=== PATIENT | female | born 1970 | race Hispanic/Latino ===

== ENCOUNTER 2024-09-13 04:30 | Inpatient (IN) | payer SELFPAY ==
[2024-09-13] VITALS (8 sets, daily range): BP systolic 105–132; BP diastolic 56–66; PULSE 86–95; RESP 19–28; TEMP 97.8–101.2; O2SAT 95–99
[~2024-09-13] VITALS: Ht 160 cm; Wt 76.7 kg
[2024-09-13] MEDS: acetaMINOPHEN 325 MG TAB PO ONE (05:02)
[2024-09-13] MEDS: Solu-medROL 125MG VIAL IVP ONE (05:02)
[2024-09-13] MEDS: 0.9%NACL 1000ML 1,323 ML IV ONE (05:03)
[2024-09-13 05:11] LABS: BASOPHILS # (AUTO) 0.07 K/uL (0.00-0.20); BASOPHILS % (AUTO) 0.6 % (0.0-5.0); EOSINOPHILS # (AUTO) 0.07 K/uL (0.00-0.70); EOSINOPHILS % (AUTO) 0.6 % (0.0-8.0); HEMATOCRIT 34.7 % (36-48); IMMATURE GRANULOCYTE ABSOLUTE 0.05 K/uL (0-1); LYMPHOCYTES # (AUTO) 0.9 K/uL (1.0-4.8); LYMPHOCYTES % (AUTO) 7.7 % (21.0-51.0); MEAN CORPUSCULAR HEMOGLOBIN 31.6 pg (27.0-33.0); MEAN CORPUSCULAR HGB CONC 32.9 g/dL (32.0-36.0); MEAN CORPUSCULAR VOLUME 96.1 fL (79-99); MONOCYTES % (AUTO) 8.7 % (3.0-13.0); NEUTROPHILS # (AUTO) 9.1 K/uL (1.8-7.7); PLATELET COUNT (AUTO) 211 K/uL (130-400); RED BLOOD CELL COUNT(AUTO) 3.61 MIL/uL (4.00-5.50); WHITE BLOOD COUNT (AUTO) 11.2 K/uL (4.8-10.8)
[2024-09-13 05:20] LABS: RAPID GROUP A STREP negative (NEGATIVE)
[2024-09-13 05:22] LABS: CREATININE 0.8 mg/dL (0.5-1.0)
[2024-09-13 05:27] LABS: APPEARANCE,URINE CLOUDY (CLEAR); BILIRUBIN,URINE 0.5 mg/dL (NEGATIVE); COLOR,URINE DARK-YELLOW (YELLOW); GLUCOSE, URINE (UA) 50 mg/dL (NEGATIVE); KETONES,URINE 5 mg/dL (NEGATIVE); LEUKOCYTE ESTERASE ,URINE NEGATIVE Leu/uL (NEGATIVE); NITRATE,URINE NEGATIVE (NEGATIVE); OCCULT BLOOD,URINE SMALL (NEGATIVE); PROTEIN,URINE 200 mg/dL (NEGATIVE); UROBILINOGEN,URINE 12 mg/dL (0.2-1.0)
[2024-09-13 05:27] LABS: SARS-CoV-2, RNA, NAAT NEGATIVE SARS CoV-2 (NEGATIVE)
[2024-09-13 05:28] LABS: ADD UA MICROSCOPIC YES
[2024-09-13 05:29] LABS: BACTERIA,URINE FEW /HPF (None Seen); MUCUS,URINE MANY LPF (None Seen); SQUAMOUS EPITHELIAL CELL,UR FEW /HPF (0-2)
[2024-09-13 05:30] LABS: INFLUENZA TYPE A Negative For Type A (NEGATIVE); INFLUENZA TYPE B Negative For Type B (NEGATIVE)
[2024-09-13 05:40] LABS: B-TYPE NATRIURETIC PEPTIDE 220 pg/mL (0-100)
[2024-09-13 05:41] LABS: POTASSIUM 2.9 mmol/L (3.5-5.1)
--- NOTE | 2024-09-13 06:01 | EKG ---
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
--- NOTE | 2024-09-13 06:53 | ERN ---
General Chief Complaint: Shortness of Breath Stated Complaint: SOB Time Seen by MD: 04:33 History of Present Illness Initial Comments Mrs Diez is a 54-year-old female history of tobacco abuse who comes in today with the acute respiratory failure. Patient was found lethargic in an alleyway and reports that she has been feeling poorly. Patient was initial presentation did have depressed sats in the low 70s. Patient was placed on non-rebreather. Allergies: Coded Allergies: No Known Drug Allergies (Unverified Allergy, Unknown, 09/13/24) Past Medical History Past Medical History: Unknown Past Surgical History: Unknown ROS Dictation Constitutional: Negative for fever,chills, and weight loss Eyes: Negative for injury, pain,redness, and discharge ENT: Negative for injury,pain or swelling Cardiovascular: Negative for chest pain, palpitations, and edema Respiratory: Positive for shortness of breath Abdomen/GI: Negative for abdominal pain, nausea, vomiting, diarrhea, and constipation Back: Negative for injury and pain : Negative for injury, bleeding and discharge MS/Extremity: Negative for injury and deformity Skin: Negative for rash, and discoloration Neuro: Positive for weakness Psych: Negative for suicide ideation, homicidal ideation, and hallucinations Physical Exam Physical Exam Dictation General: Lethargic disheveled female who appears in mild distress Head/Face: Normocephalic, atraumatic Eyes: PERRL, ENT: oral cavity clear, Neck: Trachea midline, supple, no nuchal rigidity Cardiovascular: Sinus tachycardia Respiratory: Diminished breath sounds bilaterally Abdomen: Soft, non-tender, non-distended, normal bowel sounds, no guarding or rebound. Skin: Warm, dry, normal turgor, no rash MS/Extremity: Pulses equal, no cyanosis Neuro: Lethargic Results Laboratory and Microbiology Lab and Micro Result Laboratory Tests Test 09/13/24 04:44 09/13/24 04:50 09/13/24 04:55 Influenza Type A Antigen Negative For Type A Influenza Type B Antigen Negative For Type B SARS-CoV-2, RNA, NAAT NEGATIVE SARS CoV-2 Group A Streptococcus Rapid negative (NEGATIVE) White Blood Count 11.2 K/uL (4.8-10.8) H Red Blood Count 3.61 MIL/uL (4.00-5.50) L Hemoglobin 11.4 g/dL (12.0-16.0) L Hematocrit 34.7 % (36-48) L Mean Corpuscular Volume 96.1 fL (79-99) Mean Corpuscular Hemoglobin 31.6 pg (27.0-33.0) Mean Corpuscular Hemoglobin Concent 32.9 g/dL (32.0-36.0) Red Cell Distribution Width 12.0 % (11.0-15.5) Platelet Count 211 K/uL (130-400) Mean Platelet Volume 12.7 fL (7.5-10.5) H Immature Granulocyte % (Auto) 0.4 % (0-1) Neutrophils (%) (Auto) 82.0 % (40.0-77.0) H Lymphocytes (%) (Auto) 7.7 % (21.0-51.0) L Monocytes (%) (Auto) 8.7 % (3.0-13.0) Eosinophils (%) (Auto) 0.6 % (0.0-8.0) Basophils (%) (Auto) 0.6 % (0.0-5.0) Neutrophils # (Auto) 9.1 K/uL (1.8-7.7) H Lymphocytes # (Auto) 0.9 K/uL (1.0-4.8) L Monocytes # (Auto) 1.0 K/uL (0.1-1.0) Eosinophils # (Auto) 0.07 K/uL (0.00-0.70) Basophils # (Auto) 0.07 K/uL (0.00-0.20) Absolute Immature Granulocyte (auto 0.05 K/uL (0-1) Nucleated Red Blood Cells 0.0 % (0.0-0.19) White Cell Morphology Comment See comments Sodium Level 140 mmol/L (136-145) Potassium Level 2.9 mmol/L (3.5-5.1) *L Chloride Level 101 mmol/L (101-111) Carbon Dioxide Level 34 mmol/L (21-32) H Blood Urea Nitrogen 20 mg/dL (7-18) H Creatinine 0.8 mg/dL (0.5-1.0) Glomerular Filtration Rate Calc 89 mL/min (>90) Random Glucose 228 mg/dL (70-105) H Total Calcium 8.8 mg/dL (8.5-10.1) B-Type Natriuretic Peptide 220 pg/mL (0-100) H Urine Color DARK-YELLOW (YELLOW) Urine Appearance CLOUDY (CLEAR) H Urine pH 6.0 (5.0-8.0) Urine Specific Randolph 1.031 (1.001-1.031) Urine Protein 200 mg/dL (NEGATIVE) H Urine Glucose (UA) 50 mg/dL (NEGATIVE) H Urine Ketones 5 mg/dL (NEGATIVE) H Urine Occult Blood SMALL (NEGATIVE) H Urine Nitrate NEGATIVE (NEGATIVE) Urine Bilirubin 0.5 mg/dL (NEGATIVE) H Urine Urobilinogen 12 mg/dL (0.2-1.0) H Urine Leukocyte Esterase NEGATIVE Hallie/uL Urine RBC 6-10 /HPF (0-1) H Urine WBC 6-10 /HPF (0-1) H Urine Squamous Epithelial Cells FEW /HPF (0-2) Urine Bacteria FEW /HPF (None Seen) MDM Patient appears to be a COPD exacerbation MDM: Differential diagnosis: Acute respiratory failure Rationale: Tests considered and ordered secondary to shared decision making include: labs, ECG and radiology Previous outside records reviewed: Old ER visits. Risk of complication and/or morbidity or mortality of patient management: None Medications-Per medication reconciliation Need for hospitalization: Patient does meet criteria for hospitalization. Need for emergency major/minor surgery: No There are no social concerns with this patient. Prescription drug management Prescriptions will include symptomatic care Patient's prior external medical records from other ER visits were reviewed by me as indicated. Prior testing and results from previous visits were reviewed. Prior tests were taken into account with medical decision making and resource utilization, independent historian/historians were used to obtain complete medical history. I independently interpreted the test that were performed, results were reviewed by me and considered findings on radiology if ordered. Medical management and examination interpretation discussions were had by me with other qualified healthcare professionals as indicated for the patient's care. ED Course Orders Procedure Category Date Status Time Cbc With Differential LAB 09/13/24 Complete 04:42 B-Type Natriuretic LAB 09/13/24 Complete Peptide 04:42 Chest 1vw RAD 09/13/24 Taken 04:42 Urinalysis Profile LAB 09/13/24 Complete 04:42 Troponin Poc Order LAB 09/13/24 Complete Only 04:42 Basic Metabolic Panel LAB 09/13/24 Complete 04:42 Methylprednisolone PHA 09/13/24 Complete Succ 125mg (Solu-Medr 05:00 Acetaminophen 325 Tab PHA 09/13/24 Complete (Tylenol 325mg Tab 05:00 0.9%Nacl 1000ml (Ns PHA 09/13/24 In Process 1000ml) 05:00 Rapid (Group A Strep) LAB 09/13/24 Complete 05:04 Influenza Type A & B, LAB 09/13/24 Complete Rapid 05:04 Covid Rna Naat LAB 09/13/24 Complete 05:04 Culture Urine LION 09/13/24 In Process 05:32 12 Lead Ekg Tracing- EKG 09/13/24 Complete Technical 04:42 Current Medications Medications (Trade) Dose Ordered Sig/Korey Route PRN Reason Start Time Stop Time Status Last Admin Dose Admin Acetaminophen (TYLenol 325MG TAB) 650 mg ONCE ONCE PO 09/13/24 05:00 09/13/24 05:01 DC 09/13/24 05:02 Methylprednisolone Sodium Succinate (Solu-medROL 125MG) 125 mg ONCE ONCE IVP 09/13/24 05:00 09/13/24 05:01 DC 09/13/24 05:02 Sodium Chloride 1,323 ml @ 441 mls/hr ONCE ONCE IV 09/13/24 05:00 09/13/24 07:59 09/13/24 05:03 Vital Signs Date Time Temp Pulse Resp B/P (MAP) Pulse Ox O2 Delivery O2 Flow Rate FiO2 09/13/24 06:24 88 26 111/64 99 Non-Rebreather+ 15 100 09/13/24 05:02 101.1 09/13/24 04:35 101.1 115 34 146/71 78 Room Air 0 09/13/24 04:35 101.1 107 34 132/73 72 Room Air* 0 21 DX & DISP Disposition: Inpatient Departure Impression: Primary Impression: Acute respiratory failure Condition: Stable Referrals: SELF,REFERRAL (PCP) NOREEN RODAS MD Sep 13, 2024 06:53
[2024-09-13] MEDS: IpraTROPium/alBUTERol SULFATE 3 ML SOLUTION IH ONE (07:01)
[2024-09-13] MEDS ORDERED: acetaMINOPHEN 325 MG TAB PO PRN ×2 (08:30)
[2024-09-13] MEDS ORDERED: ondanSETRON 4MG INJ IVP PRN (08:30)
--- NOTE | 2024-09-13 08:49 | HMCIMG ---
CHEST 1VW HISTORY: Shortness of breath COMPARISON: None FINDINGS: A frontal projection of the chest was obtained. No acute pulmonary infiltrates is seen. The heart is borderline enlarged. Degenerative changes are seen. Prominent interstitial markings are seen. IMPRESSION: 1. No acute pulmonary infiltrate is seen.
[2024-09-13 08:54] LABS: ABG BASE EXCESS 2.7 mmol/L (-2.0-3.0); ABG OXYGEN SATURATION 89.9 % (94.0-98.0); ABG PCO2 53 mmHg (32-45); ABG PH 7.357 (7.350-7.450); CARBON MONOXIDE 1.8 % (0.5-1.5); DEVICE COMMENT RR JULIA; HHb 9.9; PO2, ARTERIAL BG 59.1 mmHg (83.0-108.0); VENT MODE, BG 3LNC (ROOM AIR)
[2024-09-13] MEDS ORDERED: Solu-medROL 125MG VIAL IVP SCH (09:00)
[2024-09-13] MEDS ORDERED: levoFLOXacin 250 MG/D5W 50ML 50 ML IVPB SCH (09:00)
[2024-09-13] MEDS ORDERED: PoTASSium chloRIDE 20MEQ/100ML 100 ML IV PRN (09:00)
[2024-09-13] MEDS ORDERED: MAGNESIUM 2GM PREMIX 50ML 50 ML IV PRN ×2 (09:00→09:30)
--- NOTE | 2024-09-13 09:00 | NUR ---
PULMONOLGY CONSULT DONE, HOWARD FURNACE TAPPER WILL PUT IN ORDERS
--- NOTE | 2024-09-13 09:08 | CONS ---
[facility] CONSULTATION NOTE Date Patient Seen: Sep 13, 2024 Time of Visit: 09:08 Supervising Physician: Dajuan Escoto MD Reason for Consultation: SOB Primary Care Physician: self referral Outpatient Specialists:none Inpatient Consults: Brandon Tse MD Attending : Dr Homar Kumar MD PROBLEM LIST: Acute toxic metabolic encephalopathy, POA Acute hypoxemic respiratory failure, POA COPD exacerbation, POA Leukocytosis, POA Normocytic anemia, POA Compensated respiratory acidosis, POA Hyperglycemia, POA Electrolyte derangement with (hypokalemia, hypocalcemia), POA Drug abuse +for cocaine, POA Current smoker, current ETOH use Overweight HPI: This is a 64-year-old female with a history of "Bronchitis", COPD, who presented to emergency department via EMS after being found in an alley lethargic and with shortness of breath. She was admitted under catalyst team for acute hypoxic respiratory failure and we are consulted for shortness of breath by primary team. On behalf of [facility] thank you for given us the opportunity to participate in the care of this patient. On arrival to the emergency department patient had a fever of 101.1 heart rate 107 respiratory rate of 34 with a blood pressure of 132/73 with a oximetry of 78% at room air. Laboratory showed white count of 11.2 H&H 11.4/34.7 and a platelet count that was normal neutrophils were 82. Chemistries showed potassium of 3.2 carbon dioxide of 34 glucose 195 mg/dL iron of 31 TIBC 239% saturation 12.9 ammonia level 17 procalcitonin 0.23. On UDS patient is positive for cocaine. Urinalysis showed: cloudy appearance urine protein 200, glucose 50 ketones five occult blood small bilirubin 0.5 urobilinogen 12 RBCs 6-10 WBCs 6-10. HIV antibody nonreactive. Influenza type a and B negative. SARS COVID-19 negative. And rapid strep negative. Chest x-ray with no acute pulmonary infiltrates. PAST MEDICAL HX: "chronic bornchitis" COPD PAST SURGICAL HX: noncontributory SOCIAL HISTORY: Smokes half pack of cigarettes per day Uses alcohol occasionally Drug use Positive for cocaine Homeless Coded Allergies: No Known Drug Allergies (Unverified Allergy, Unknown, 09/13/24) REVIEW OF SYSTEMS: 12 point ROS reviewed with patient. Pertinent positives mentioned above. Otherwise negative. PHYSICAL EXAM: GENERAL:GCS 13, lethargic HEENT: EOMI, Sclera non icteric, moist mucosa NECK: Supple, no JVD, trachea midline LUNGS: Clear breath sounds bilaterally. No wheezes HEART: Regular rate and rhythm. Normal S1 and S2, without murmurs ABD: Abdomen soft, nontender. Bowel sounds present EXT: No clubbing cyanosis or edema NEURO: lethargic, no focal weakness Vital Signs (last 8hr) Date Time Temp Pulse Resp B/P (MAP) Pulse Ox O2 Delivery O2 Flow Rate FiO2 09/13/24 08:25 86 20 95/53 96 Room Air* 0 21 09/13/24 07:04 88 24 09/13/24 06:24 88 26 111/64 99 Non-Rebreather+ 15 100 09/13/24 05:02 101.1 09/13/24 04:35 101.1 115 34 146/71 78 Room Air 0 09/13/24 04:35 101.1 107 34 132/73 72 Room Air* 0 21 LABS: Hematology Labs: Test 09/13/24 04:50 Range/Units White Blood Count 11.2 H 4.8-10.8 K/uL Red Blood Count 3.61 L 4.00-5.50 MIL/uL Hemoglobin 11.4 L 12.0-16.0 g/dL Hematocrit 34.7 L 36-48 % Mean Corpuscular Volume 96.1 79-99 fL Mean Corpuscular Hemoglobin 31.6 27.0-33.0 pg Mean Corpuscular Hemoglobin Concent 32.9 32.0-36.0 g/dL Red Cell Distribution Width 12.0 11.0-15.5 % Platelet Count 211 130-400 K/uL Mean Platelet Volume 12.7 H 7.5-10.5 fL Immature Granulocyte % (Auto) 0.4 0-1 % Neutrophils (%) (Auto) 82.0 H 40.0-77.0 % Lymphocytes (%) (Auto) 7.7 L 21.0-51.0 % Monocytes (%) (Auto) 8.7 3.0-13.0 % Eosinophils (%) (Auto) 0.6 0.0-8.0 % Basophils (%) (Auto) 0.6 0.0-5.0 % Neutrophils # (Auto) 9.1 H 1.8-7.7 K/uL Lymphocytes # (Auto) 0.9 L 1.0-4.8 K/uL Monocytes # (Auto) 1.0 0.1-1.0 K/uL Eosinophils # (Auto) 0.07 0.00-0.70 K/uL Basophils # (Auto) 0.07 0.00-0.20 K/uL Absolute Immature Granulocyte (auto 0.05 0-1 K/uL Nucleated Red Blood Cells 0.0 0.0-0.19 % White Cell Morphology Comment See comments Chemistry Labs: Test 09/13/24 04:50 Range/Units Sodium Level 140 136-145 mmol/L Potassium Level 2.9 *L 3.5-5.1 mmol/L Chloride Level 101 101-111 mmol/L Carbon Dioxide Level 34 H 21-32 mmol/L Blood Urea Nitrogen 20 H 7-18 mg/dL Creatinine 0.8 0.5-1.0 mg/dL Glomerular Filtration Rate Calc 89 >90 mL/min Random Glucose 228 H 70-105 mg/dL Total Calcium 8.8 8.5-10.1 mg/dL B-Type Natriuretic Peptide 220 H 0-100 pg/mL DIAGNOSTICS / RADIOLOGY RESULTS: IMAGING REPORT Signed PATIENT: ESTEBAN MELGAR MR#: [id number] : 1970 SEX: F AGE: 54 LOCATION: [facility] ORDER 2 STATUS: REG REPORT#: [id number] SERVICE 1 REASON: SOB ORDERING PHYSICIAN: NOREEN RODAS MD PROCEDURE: CXR1VW - CHEST 1VW CHEST 1VW HISTORY: Shortness of breath COMPARISON: None FINDINGS: A frontal projection of the chest was obtained. No acute pulmonary infiltrates is seen. The heart is borderline enlarged. Degenerative changes are seen. Prominent interstitial markings are seen. IMPRESSION: 1. No acute pulmonary infiltrate is seen. DICTATED BY: JAIME DOTSON MD DATE: 09/13/24845 ELECTRONICALLY SIGNED BY: JAIME DOTSON MD DATE: 09/13/24848 PLAN NEURO: Minimize central acting medications as possible. Fall Precautions. Well lighted room through the day and minimize interruptions through the night to prevent acute delirium. [facility] protocol PULMONARY: Supplemental 02 as needed Titrate Fio2 to keep Spo2 > or = 90% DuoNebs and CPT as needed IS hourly while awake for pulmonary hygiene Out of bed to chair as tolerated VAP Bundle Bipap 10/5 at 40% prn and HS CARDIOVASCULAR: Follow hemodynamics. Titrate vasopressor to keep MAP >65 or systolic blood pressure >95mmHg tele monitoring DRIPS: [ ] LINES: PIV GI & NUTRITION: Continue nutritional support Aspirations precautions Prokinetic agents and laxatives as needed aspiration precautions KIDNEYS & ELECTROLYTES: Strict monitoring of intake and output Daily weights Avoid nephrotoxic agents Monitor electrolytes and replace as needed Goal urine output of 30mL/hr or 0.5mL/kg/hr Urine output: [ ] Fluid Balance: [ ] ENDOCRINE: Maintain blood glucose between 100-180 at all times. Insulin sliding scale for blood glucose management INFECTIOUS DISEASE: Trend temperature. Holt-culture if febrile. Micro: resp culture urine culture blood culture negative for covid, flu a and b negative for strep Antibiotics: [ ] Rocephin Doxy HEMATOLOGY & COAGULATION: Monitor H&H. Keep Hgb > 7 Transfuse 1 unit of PRBC for Hgb < 7 Transfuse 1 pack of platelets of platelets < 20, 000 Watch for any signs and symptoms of bleeding monitor HH SKIN: Pressure ulcer prevention per facility protocol Rehab: PT/OT Prophylaxis: GI: Protonix DVT: lovenox Code Status: Full Resuscitation Disposition: ICU Other: Total patient care time exceeds 35 minutes excluding all procedures. Case was discussed and seen with my supervising physician. The above plan was formulated and agreed upon. HOWARD ABRAHAM Sep 13, 2024 09:08
[2024-09-13 09:19] LABS: % IRON SATURATION 12.9 % (22-44)
--- NOTE | 2024-09-13 09:19 | NUR ---
DR SAINZ NOTIFIED OF ABG RESULTS, NEW ORDERS RECIEVED PLACE PT ON BIPAP AND KEEP PT PCCU
[2024-09-13 09:23] LABS: HEMOGLOBIN A1C 5.6 % (4.0-6.0)
[2024-09-13] MEDS ORDERED: PoTASSium chloRIDE 10MEQ/100ML 100 ML IV PRN (09:30)
[2024-09-13 09:40] LABS: BILIRUBIN,DIRECT 0.9 mg/dL (0.0-0.3); BILIRUBIN,TOTAL 1.7 mg/dL (0.2-1.0); MAGNESIUM 2.1 mg/dL (1.80-2.40); THYROID STIMULATING HORMONE 0.39 uIU/mL (0.36-3.74); TOTAL PROTEIN, SERUM 7.4 g/dL (6.0-8.3)
--- NOTE | 2024-09-13 09:45 | HP ---
[facility] HISTORY AND PHYSICAL Date of Service: Sep 13, 2024 Time of Service: 09:14 PCP: MICHAEL HISTORY OF PRESENT ILLNESS: [This is a 54-year-old female with history of Chronic obstructive pulmonary disease who presented to the emergency department via EMS as patient was found in an alleyway where she was found lethargic and unable to breath. According to the ER report, her O2 saturation was in the 70s on room air. Patient was placed on non-rebreather mask and was brought to the emergency department for further evaluation. In the ED, her initial vitals showed temperature of 101.1, pulse 107-115, respiratory rate 34, BP 132/73, pulse oximetry 72% on room air at that time. She was placed on non-rebreather mask for which she improve oxygenation to 99%. Laboratory data reviewed, WBC 11.2, HGB 11.4, HCT 34.7, K 2.9, CL 101, Co2 34, BUN 20, creatinine 0.8, BNP 220. Chest x-ray done showed no acute pulmonary infiltrates seen. Patient was evaluated in ED [address] Graf. Patient was drowsy but able to answer questions, patient was congested. In the ED, she received nebulizer treatment with albuterol x1 Tylenol 650 mg x1 and [id number] mg IV. She was referred to the hospitalist for further evaluation and management. REVIEW OF SYSTEMS CONSTITUTIONAL: Denies fevers, chills, or night sweats. No unintentional weight loss reported. NEUROLOGICAL: Denies headache, amaurosis fugax, motor weakness, sensory deficit, vertigo/spinning sensation, gait abnormalities, or tremors. ENT: No hearing loss, otalgia, otorrhea, rhinitis, rhinorrhea, hoarseness, or s ore throat. CARDIOVASCULAR: Denies any exertional angina, dyspnea on exertion, orthopnea, paroxysmal nocturnal dyspnea, palpitations, life-threatening arrhythmias, claudication. PULMONARY: Denies any shortness of breath, cough, phlegm/sputum, hemoptysis, pleuritic chest pain. SLEEP: Denies morning headaches, daytime somnolence or napping. Denies difficulty falling asleep, staying asleep, waking from sleep. Denies knowledge of snoring. GASTROINTESTINAL: Denies any type of dysphagia to either liquids or solids. Denies nausea, vomiting, pyrosis, early satiety, abdominal pain, diarrhea, constipation, or changes in stool consistency or caliber. Denies coffee-ground emesis, hematemesis, hematochezia, or melanotic stools. GENITOURINARY: Denies frequency, urgency, nocturia, hematuria or incontinence (Storage/Irritative symptoms.) Low urinary stream, straining to void, urinary intermittency or hesitancy, splitting of the voiding stream, terminal dribbling. ENDOCRINOLOGIC: Denies polyuria, polydipsia, polyphagia or heat/cold intolerances. HEMATOLOGIC: Denies thrombophilia/previous clots, or coagulopathy/bleeding disorders. ONCOLOGIC: Denies personal history of malignancy. DERMATOLOGIC: Denies rashes or pruritus. PSYCHIATRIC: Denies any suicidal or homicidal ideation. Denies hallucinations. PAST MEDICAL HISTORY: [Chronic obstructive pulmonary disease ] PAST SURGICAL HISTORY: [Denies any past surgical history ] PAST SOCIAL HISTORY: [Patient smokes half a pack of cigarettes per day denies, alcohol or illicit drug use ] FAMILY HISTORY: [ Noncontributory ] Coded Allergies: No Known Drug Allergies (Unverified Allergy, Unknown, 09/13/24) PHYSICAL EXAM GENERAL APPEARANCE: Patient is drowsy, generalized weakness NEUROLOGICAL: Cranial nerves II-XII grossly intact. Motor is 5/5 in bilateral upper and lower extremities proximal to distal. No sensory deficits. HEENT: Face is symmetric. Pupils are equal and reactive. Extraocular movements are intact. NECK: Supple. No JVD. No thyromegaly. No submental, submandibular, pre- /postauricular, occipital or supraclavicular lymphadenopathy. CHEST: Normal chest expansion. No Telemetry. LUNGS: Noted rales, rhonchi, wheezing, and congestion CARDIOVASCULAR: Regular. S1 and S2 normal. No appreciable rubs, murmurs or gallops. ABDOMEN: Soft, nontender, and nondistended. There is no rebound, voluntary guarding, or rigidity. : Deferred. No [place]. EXTREMITIES: Non-edematous and not cyanotic. No clubbing. Good capillary refill. SKIN: No skin breakdown. Vital Sign (Last 24 Hours) 09/13/24 09/13/24 05:02 08:25 Temp 101.1 Pulse 86 Resp 20 B/P (MAP) 95/53 Pulse Ox 96 O2 Delivery Room Air* O2 Flow Rate 0 FiO2 21 LABS: Laboratory: Test 09/13/24 08:53 09/13/24 04:55 09/13/24 04:50 09/13/24 04:44 Range/Units Blood Gas Specimen Type Arterial Arterial Blood pH 7.357 7.350-7.450 Arterial Blood Partial Pressure CO2 53 H 32-45 mmHg Arterial Blood Partial Pressure O2 59.1 L 83.0-108.0 mmHg Arterial Blood HCO3 29.0 H 21.0-28.0 mmol/L Arterial Blood Oxygen Saturation 89.9 L 94.0-98.0 % Arterial Blood Base Excess 2.7 -2.0-3.0 mmol/L Hemoglobin (Blood Gas) 11.6 L 12.0-16.0 g/dL Sodium (Blood Gas) 139 136-145 MMOL/L Bedside Potassium (Blood Gas) 3.2 L 3.4-4.5 MMOL/L Bedside Chloride (Blood Gas) 100 98-107 MMOL/L Bedside Glucose (Blood Gas) 192 H 65-95 MG/DL Bedside Ionized Calcium (Blood Gas) 1.12 L 1.15-1.33 MMOL/L Bedside Lactic Acid (Blood Gas) 1.11 H 0.36-0.75 MMOL/L Blood Gas Temperature 37.0 35.5-37.0 CELSIUS Blood Gas Flow-by 3.00 0.00-15.00 L/min Blood Gas Vent Mode 3LNC ROOM AIR FiO2 32.0 % Blood Gas Specimen Comment RR JUAN Urine Color DARK-YELLOW YELLOW Urine Appearance CLOUDY H CLEAR Urine pH 6.0 5.0-8.0 Urine Specific [place] 1.031 1.001-1.031 Urine Protein 200 H NEGATIVE mg/dL Urine Glucose (UA) 50 H NEGATIVE mg/dL Urine Ketones 5 H NEGATIVE mg/dL Urine Occult Blood SMALL H NEGATIVE Urine Nitrate NEGATIVE NEGATIVE Urine Bilirubin 0.5 H NEGATIVE mg/dL Urine Urobilinogen 12 H 0.2-1.0 mg/dL Urine Leukocyte Esterase NEGATIVE NEGATIVE Hallie/uL Urine RBC 6-10 H 0-1 /HPF Urine WBC 6-10 H 0-1 /HPF Urine Squamous Epithelial Cells FEW 0-2 /HPF Urine Bacteria FEW None Seen /HPF White Blood Count 11.2 H 4.8-10.8 K/uL Red Blood Count 3.61 L 4.00-5.50 MIL/uL Hemoglobin 11.4 L 12.0-16.0 g/dL Hematocrit 34.7 L 36-48 % Mean Corpuscular Volume 96.1 79-99 fL Mean Corpuscular Hemoglobin 31.6 27.0-33.0 pg Mean Corpuscular Hemoglobin Concent 32.9 32.0-36.0 g/dL Red Cell Distribution Width 12.0 11.0-15.5 % Platelet Count 211 130-400 K/uL Mean Platelet Volume 12.7 H 7.5-10.5 fL Immature Granulocyte % (Auto) 0.4 0-1 % Neutrophils (%) (Auto) 82.0 H 40.0-77.0 % Lymphocytes (%) (Auto) 7.7 L 21.0-51.0 % Monocytes (%) (Auto) 8.7 3.0-13.0 % Eosinophils (%) (Auto) 0.6 0.0-8.0 % Basophils (%) (Auto) 0.6 0.0-5.0 % Neutrophils # (Auto) 9.1 H 1.8-7.7 K/uL Lymphocytes # (Auto) 0.9 L 1.0-4.8 K/uL Monocytes # (Auto) 1.0 0.1-1.0 K/uL Eosinophils # (Auto) 0.07 0.00-0.70 K/uL Basophils # (Auto) 0.07 0.00-0.20 K/uL Absolute Immature Granulocyte (auto 0.05 0-1 K/uL Nucleated Red Blood Cells 0.0 0.0-0.19 % White Cell Morphology Comment See comments Sodium Level 140 136-145 mmol/L Potassium Level 2.9 *L 3.5-5.1 mmol/L Chloride Level 101 101-111 mmol/L Carbon Dioxide Level 34 H 21-32 mmol/L Blood Urea Nitrogen 20 H 7-18 mg/dL Creatinine 0.8 0.5-1.0 mg/dL Glomerular Filtration Rate Calc 89 >90 mL/min Random Glucose 228 H 70-105 mg/dL Total Calcium 8.8 8.5-10.1 mg/dL B-Type Natriuretic Peptide 220 H 0-100 pg/mL Influenza Type A Antigen Negative For Type A NEGATIVE Influenza Type B Antigen Negative For Type B NEGATIVE SARS-CoV-2, RNA, NAAT NEGATIVE SARS CoV-2 NEGATIVE Group A Streptococcus Rapid negative NEGATIVE Current Medications Medications (Trade) Dose Ordered Sig/[place] Route PRN Reason Start Time Stop Time Status Last Admin Dose Admin Acetaminophen (TYLenol 325MG TAB) 650 mg Q4H PRN PO TEMPERATURE GREATER THAN 101.5 09/13/24 08:30 10/13/24 08:29 Acetaminophen (TYLenol 325MG TAB) 650 mg Q6H PRN PO MILD PAIN (1-3) 09/13/24 08:30 10/13/24 08:29 Albuterol (DUOneb) 1 UDVIAL [id number] IH 09/13/24 12:00 10/13/24 11:59 Ceftriaxone Sodium (ROCEphine 1G INJ) 1 gm Q24H IVPB 09/13/24 09:00 09/23/24 08:59 Doxycycline Hyclate 250 ml @ 125 mls/hr Q12H IV 09/13/24 09:00 09/23/24 08:59 Enoxaparin Sodium (Lovenox) 30 mg DAILY SQ 09/13/24 09:00 10/13/24 08:59 Ipratropium [place] (AtrovENT UD) 0.5 MG [id number] IH 09/13/24 12:00 10/13/24 11:59 Levofloxacin/ Dextrose 50 ml @ 100 mls/hr DAILY IVPB 09/13/24 09:00 09/23/24 08:59 Levofloxacin/ Dextrose 100 ml @ 100 mls/hr Q24H IV 09/13/24 07:00 09/23/24 06:59 09/13/24 07:41 100 MLS/HR Magnesium Sulfate 50 ml @ 0 mls/hr PROTOCOL PRN IV hypomagnesemia 09/13/24 09:00 10/13/24 08:59 Magnesium Sulfate 50 ml @ 0 mls/hr PROTOCOL PRN IV LOW MAGNESIUM 09/13/24 09:30 10/13/24 09:29 UNV Methylprednisolone Sodium Succinate (Solu-medROL 125MG) 125 mg Q6H IVP 09/13/24 09:00 10/13/24 08:59 Ondansetron HCl (zoFRAN 4MG INJ) 4 mg Q6H PRN IVP NAUSEA/VOMITING 09/13/24 08:30 10/13/24 08:29 Potassium Chloride 100 ml @ 100 mls/hr AD PRN IV POTASSIUM PROTOCOL 09/13/24 09:00 10/13/24 08:59 Potassium Chloride 100 ml @ 100 mls/hr AD PRN IV POTASSIUM PROTOCOL 09/13/24 09:30 10/13/24 09:29 UNV Potassium Chloride (K-Dur/Klor-Con 20meq) 20 meq AD PRN PO POTASSIUM PROTOCOL 09/13/24 09:00 10/13/24 08:59 Potassium Chloride (KCl 10% Elixir 20meq/15ml) 20 meq AD PRN PO POTASSIUM PROTOCOL 09/13/24 09:00 10/13/24 08:59 Sodium Chloride 1,000 ml @ 50 mls/hr Q20H IV 09/13/24 09:00 10/13/24 08:59 DIAGNOSTICS / RADIOLOGY: [[place] [address] [address] IMAGING REPORT Signed PATIENT: ESTEBAN MELGAR MR#: [id number] : 1970 SEX: F AGE: 54 LOCATION: [facility] ORDER 2 STATUS: REG REPORT#: [id number] SERVICE 1 REASON: SOB ORDERING PHYSICIAN: NOREEN RODAS MD PROCEDURE: CXR1VW - CHEST 1VW CHEST 1VW HISTORY: Shortness of breath COMPARISON: None FINDINGS: A frontal projection of the chest was obtained. No acute pulmonary infiltrates is seen. The heart is borderline enlarged. Degenerative changes are seen. Prominent interstitial markings are seen. IMPRESSION: 1. No acute pulmonary infiltrate is seen. DICTATED BY: JAIME DOTSON MD DATE: 09/13/24845 ELECTRONICALLY SIGNED BY: JAIME DOTSON MD DATE: 09/13/24848 ] ASSESSMENT: [Acute respiratory failure, POA Chronic obstructive pulmonary disease exacerbation, POA Acute bronchitis, POA Sepsis, POA due to above Severe hypokalemia, POA Elevated BNP, POA Hyperglycemia, POA Urinary tract infection, POA ] PLAN: [Patient will be admitted in PCCU Continue with oxygen supplementation on BiPAP support We will consult paediatrician, Dr. Campos for further recommendations Patient will continue with IV antibiotics ceftriaxone and doxycycline Patient will continue with IV steroid with [id number] mg q.6 hours Patient will continue with IV fluids with NS 50 mL/hour We will order 2D echo We will order drug screen, lipid panel, T4 and T3, TSH, iron panel We will follow up with urine culture and blood culture We will order HIV 1-2 w/reflex GI and DVT ppx We will order labs in am Full code Patient was seen and examined with Dr. Graf in the emergency department, above plan was formulated ] ATTESTATION BY PHYSICIAN I have seen and examined the patient. I reviewed the documentation, medical decision making, and treatment plan as noted by the mid-level provider above. I agree with the findings and plan of care. FARA GRAF MD, [facility] Sep 13, 2024 09:45
[2024-09-13 10:11] LABS: HIV 1&2 ANTIBODY Non-Reactive (Negative); HIV-1 p24 Antigen Non-Reactive (Negative)
[2024-09-13 10:27] LABS: ALCOHOL, BLOOD < 3 mg/dL (0-10); AMMONIA 17 umol/L (11-32); CARBON DIOXIDE 34 mmol/L (21-32); CHLORIDE 102 mmol/L (101-111); CREATININE 0.8 mg/dL (0.5-1.0); GLOMERULAR FILTR. RATE CALC 89 mL/min (>90); GLUCOSE,RANDOM 195 mg/dL (70-105); POTASSIUM 3.2 mmol/L (3.5-5.1); SODIUM SERUM 141 mmol/L (136-145); UREA NITROGEN, BLOOD 17 mg/dL (7-18)
[2024-09-13] MEDS: cefTRIAXone 1G VIAL IVPB SCH (10:30)
[2024-09-13] MEDS: 0.9%NACL 1000ML 1,000 ML IV SCH (10:30)
[2024-09-13] MEDS: DOXYCYCLINE 100MG+NS 250ML 250 ML IV SCH (10:30)
[2024-09-13] MEDS: PoTASSium chl 10% ELIXIR 20MEQ 20 MEQ/15 ML UDCUP PO PRN (10:31)
[2024-09-13] MEDS: ENOXAPARIN SODIUM 30 MG/0.3 ML SQ SCH (10:32)
[2024-09-13] MEDS: IpraTROPium/alBUTERol SULFATE 3 ML SOLUTION IH SCH (11:11)
[2024-09-13] MEDS: IpraTROPium 0.5 MG/2.5 ML INH IH SCH (11:11)
[2024-09-13] MEDS: SODIUM CHLORIDE 3% FOR INHALATION 4 ML/AMP VIAL.NEB IH ONE (11:11)
[2024-09-13 13:07] LABS: INR 1.01 (0.85-1.15); PROTHROMBIN TIME 11.3 SEC (9.6-11.6)
[2024-09-13 14:18] LABS: AMPHET/METH SCREEN,URINE NEGATIVE (NEGATIVE); BARBITURATE SCREEN, URINE NEGATIVE (NEGATIVE); BENZODIAZEPINES SCREEN,URINE NEGATIVE (NEGATIVE); CANNABINOID SCREEN,URINE NEGATIVE (NEGATIVE); COCAINE SCREEN,URINE POSITIVE (NEGATIVE); OPIATE SCREEN,URINE NEGATIVE (NEGATIVE); PHENCYCLIDINE SCREEN,URINE NEGATIVE (NEGATIVE)
[2024-09-13] MEDS ORDERED: PHARMACY COMMUNICATION MISC PRN (20:30)
[2024-09-13] MEDS ORDERED: chlordiazePOXIDE HCL 25 MG CAP PO PRN ×2 (20:30)
[2024-09-13] MEDS ORDERED: PROMETHAZINE HCL 25 MG TABLET PO PRN (20:30)
[2024-09-13] MEDS ORDERED: LORazepam 2 MG/ML 1 ML VIAL IVP PRN ×2 (20:30)
--- NOTE | 2024-09-13 21:32 | HMCIMG ---
CT NONCONTRAST CHEST Comparison Study: none History: cough Technique: Helical CT of the chest without IV contrast at 5 mm collimation. Coronal and sagittal reformations also done. CT Dose Index (CTDI): 2.38 mGy Dose Length Product (DLP): 94.8 total mGy-cm Findings: The airway is intact. The trachea and major bronchi are unremarkable. Scattered diffuse bilateral infiltrates are seen consistent with bilateral pneumonia. No pulmonary infiltrates or mass lesions are seen. No pleural effusions are identified. There is no pneumothorax. There is no evidence of pneumomediastinum. The nonenhanced exam of the sharri and mediastinum is unremarkable. No evidence of hilar enlargement is seen. The aorta shows no aneurysmal dilatation or significant atheromatous calcification. No significant brachiocephalic vascular abnormalities are seen. The heart is unremarkable. It is not enlarged. No significant coronary arterial calcifications are seen. There is no pericardial effusion. The rib cage appears unremarkable. The soft tissues of the chest wall are unremarkable. The dorsal spine shows no significant abnormalities. IMPRESSION: Scattered diffuse bilateral infiltrates are seen consistent with bilateral pneumonia. This study was performed using dose reduction techniques to include automated exposure control and/or adjustment of the mA and/or kV according to patient size.
[2024-09-13] MEDS: Solu-medROL 40MG VIAL IVP SCH (21:59)
[2024-09-13] MEDS: THIAMINE HCL 100 MG, FOLic ACID 5 MG/ML VIAL 1 MG, M.V.I. IV [ADULT] 10 ML in 0.9%NACL ... IV ONE (22:48)
[2024-09-14] VITALS (15 sets, daily range): BP systolic 109–146; BP diastolic 49–85; PULSE 60–102; RESP 16–22; TEMP 97.8–98.8; O2SAT 93–97
--- NOTE | 2024-09-14 00:46 | NUR ---
REPORT GIVEN TO SALINAS YU AT THIS TIME.
--- NOTE | 2024-09-14 02:41 | PN ---
INFECTIOUS DISEASE FOLLOWUP NOTE DATE OF SERVICE: 09/13/2024 SUBJECTIVE: The patient is seen and examined at bedside today. The patient has no fever, no chills. Still has some cough. No hemoptysis or pleuritic pain. , no diarrhea, no abdominal pain. No bleeding tendency. PHYSICAL EXAMINATION: VITAL SIGNS: Temperature 99.5. EYES: No icterus. Pupils equal and reactive. HENT: No oral thrush seen. Moist oral mucosa. NECK: Supple, no JVD or thyromegaly. LUNGS: Good air entry. No rales, no rhonchi. CARDIOVASCULAR: S1, S2 regular. No murmur heard. ABDOMEN: Full, soft, nontender. Bowel sounds present. CENTRAL NERVOUS SYSTEM: Awake, alert, oriented x 3. No focal deficits. SKIN: No rashes, no itchiness. LYMPHATIC: No peripheral lymphadenopathy. BACK: No deformity, no pressure ulcer. MUSCULOSKELETAL: No joint swelling, erythema or tenderness. ASSESSMENT: A 54-year-old female presenting with cough and fever. Current problem include: * Sepsis. * Urinary tract infection. * Pneumonia. PLAN: * Obtain CT chest without contrast. * Continue ceftriaxone. * Continue doxycycline. * Follow up culture. * Continue current management. TID: [id number] RECEIPT: [id number]
[2024-09-14 05:23] LABS: BASOPHILS # (AUTO) 0.07 K/uL (0.00-0.20); BASOPHILS % (AUTO) 0.7 % (0.0-5.0); HEMATOCRIT 33.4 % (36-48); LYMPHOCYTES # (AUTO) 0.9 K/uL (1.0-4.8); LYMPHOCYTES % (AUTO) 8.6 % (21.0-51.0); MEAN CORPUSCULAR HGB CONC 31.1 g/dL (32.0-36.0); MEAN CORPUSCULAR VOLUME 99.4 fL (79-99); MONOCYTES % (AUTO) 9.4 % (3.0-13.0); NEUTROPHILS # (AUTO) 8.5 K/uL (1.8-7.7); NEUTROPHILS % (AUTO) 80.4 % (40.0-77.0); PLATELET COUNT (AUTO) 215 K/uL (130-400); RED BLOOD CELL COUNT(AUTO) 3.36 MIL/uL (4.00-5.50); WHITE BLOOD COUNT (AUTO) 10.6 K/uL (4.8-10.8)
[2024-09-14 05:46] LABS: ALBUMIN 2.2 g/dL (3.5-5.0); BILIRUBIN,TOTAL 0.3 mg/dL (0.2-1.0); CREATININE 0.7 mg/dL (0.5-1.0); POTASSIUM 3.7 mmol/L (3.5-5.1); TOTAL PROTEIN, SERUM 6.4 g/dL (6.0-8.3)
--- NOTE | 2024-09-14 06:05 | NUR ---
PAGED HOSPITALIST K[facility] RUNNER TO REPORT CRITICAL LAB, PENDING CALL BACK FROM DR TEAGUE
[2024-09-14] MEDS: CEFTRIAXONE 2GM VIAL IVPB SCH (08:32)
[2024-09-14] MEDS: THIAMINE HCL 100 MG/ML 2ML VIAL IM SCH (08:41)
[2024-09-14] MEDS: FOLic ACID 1 MG TABLET PO SCH (08:42)
[2024-09-14] MEDS: MULTIVITAMIN TABLET PO SCH (08:42)
--- NOTE | 2024-09-14 09:30 | HMCIMG ---
CHEST 1VW HISTORY: Hypoxia COMPARISON: 09/13/2024 FINDINGS: A frontal projection of the chest was obtained. Mild bilateral pulmonary infiltrates are seen may be related to mild pulmonary vascular congestion with possible superimposed pneumonitis. The heart is normal in size. Degenerative changes are seen. No evidence of aortic calcification is seen. IMPRESSION: 1. Mild bilateral pulmonary infiltrates are seen may be related to mild pulmonary vascular congestion with possible superimposed pneumonitis.
--- NOTE | 2024-09-14 11:24 | NUR ---
INITIAL ASSESSMENT Patient states she has been staying on the streets in an alley but when discharge will go stay with her friend, Brannon Alaniz. She has no home services or DME. Patient states she is able to complete ADL's independently and is able to drive. PCP is MD at [facility]. Pharmacy is [facility]. Patient has encountered issues with having stable mcc to live in or transportation. She does not elaborate but states things because more difficult X 6 months ago when her spouse . She states she had been staying on the streets in an alley but will go stay with one of her friends whe she is discharged from hospital. Patient refuses to go to homeless mcc. DCP is home. Patient has no insurance or benefits. She was provided with community resources for post hospitalization follow up. Patient was also provided with Good RX card for prescriptions and educated on [facility] $4 medication program and [facility] $5 medication program. Patient is being assisted by [employer] for financial matters. Addendum: 09/14/24 at 1128 by ANGÉLICA WAN SS Amended: Links added.
--- NOTE | 2024-09-14 11:29 | NUR ---
EMERGENCY CONTACTS/ADDRESS FIONA MELGAR (DAUGHTER) [phone] NOREEN INGRID (FRIEND) [phone] CORRECT ADDRESS: [facility] [place] [address]
[2024-09-14] MEDS: guaiFENesin-DM 200/20MG 10ML PO PRN (13:27)
--- NOTE | 2024-09-14 13:31 | PN ---
[facility] PROGRESS NOTE Date of Service: Sep 14, 2024 Time of Service: 13:30 SUBJECTIVE: [ ] 09/14/24 patient was seen and examined. Case discussed with the RN. She was still short of breath and requiring about3 L of oxygen. CT chest was negative for PE and suggests pneumonia. We will continue broad-spectrum IV antibiotics REVIEW OF SYSTEMS CONSTITUTIONAL: Denies fevers, chills, or night sweats. No unintentional weight loss reported. NEUROLOGICAL: Denies headache, amaurosis fugax, motor weakness, sensory deficit, vertigo/spinning sensation, gait abnormalities, or tremors. ENT: No hearing loss, otalgia, otorrhea, rhinitis, rhinorrhea, hoarseness, or sore throat. CARDIOVASCULAR: Denies any exertional angina, dyspnea on exertion, orthopnea, paroxysmal nocturnal dyspnea, palpitations, life-threatening arrhythmias, claudication. PULMONARY: Denies any shortness of breath, cough, phlegm/sputum, hemoptysis, pleuritic chest pain. SLEEP: Denies morning headaches, daytime somnolence or napping. Denies difficulty falling asleep, staying asleep, waking from sleep. Denies knowledge of snoring. GASTROINTESTINAL: Denies any type of dysphagia to either liquids or solids. Denies nausea, vomiting, pyrosis, early satiety, abdominal pain, diarrhea, constipation, or changes in stool consistency or caliber. Denies coffee-ground emesis, hematemesis, hematochezia, or melanotic stools. GENITOURINARY: Denies frequency, urgency, nocturia, hematuria or incontinence (Storage/Irritative symptoms.) Low urinary stream, straining to void, urinary intermittency or hesitancy, splitting of the voiding stream, terminal dribbling. ENDOCRINOLOGIC: Denies polyuria, polydipsia, polyphagia or heat/cold intolerances. HEMATOLOGIC: Denies thrombophilia/previous clots, or coagulopathy/bleeding disorders. ONCOLOGIC: Denies personal history of malignancy. DERMATOLOGIC: Denies rashes or pruritus. PSYCHIATRIC: Denies any suicidal or homicidal ideation. Denies hallucinations. PHYSICAL EXAM GENERAL APPEARANCE: Patient is drowsy, generalized weakness NEUROLOGICAL: Cranial nerves II-XII grossly intact. Motor is 5/5 in bilateral upper and lower extremities proximal to distal. No sensory deficits. HEENT: Face is symmetric. Pupils are equal and reactive. Extraocular movements are intact. NECK: Supple. No JVD. No thyromegaly. No submental, submandibular, pre- /postauricular, occipital or supraclavicular lymphadenopathy. CHEST: Normal chest expansion. No Telemetry. LUNGS: Noted rales, rhonchi, wheezing, and congestion CARDIOVASCULAR: Regular. S1 and S2 normal. No appreciable rubs, murmurs or gallops. ABDOMEN: Soft, nontender, and nondistended. There is no rebound, voluntary guarding, or rigidity. : Deferred. No [place]. EXTREMITIES: Non-edematous and not cyanotic. No clubbing. Good capillary refill. SKIN: No skin breakdown. Vital Signs (last 8hr) Date Time Temp Pulse Resp B/P (MAP) Pulse Ox O2 Delivery O2 Flow Rate FiO2 09/14/24 12:00 98.6 60 16 140/59 94 Nasal Cannula 3.0 09/14/24 11:19 91 20 N/Cannula Low lpm 2.0 28 09/14/24 11:17 91 22 09/14/24 08:00 98.6 65 18 109/49 97 Nasal Cannula 2.0 09/14/24 06:58 83 20 N/Cannula Low lpm 3.0 32 09/14/24 06:56 83 20 LABS: Laboratory: Test 09/14/24 05:02 09/13/24 13:40 09/13/24 12:36 09/13/24 09:59 Range/Units White Blood Count 10.6 4.8-10.8 K/uL Red Blood Count 3.36 L 4.00-5.50 MIL/uL Hemoglobin 10.4 L 12.0-16.0 g/dL Hematocrit 33.4 L 36-48 % Mean Corpuscular Volume 99.4 H 79-99 fL Mean Corpuscular Hemoglobin 31.0 27.0-33.0 pg Mean Corpuscular Hemoglobin Concent 31.1 L 32.0-36.0 g/dL Red Cell Distribution Width 12.0 11.0-15.5 % Platelet Count 215 130-400 K/uL Mean Platelet Volume 13.2 H 7.5-10.5 fL Immature Granulocyte % (Auto) 0.9 0-1 % Neutrophils (%) (Auto) 80.4 H 40.0-77.0 % Lymphocytes (%) (Auto) 8.6 L 21.0-51.0 % Monocytes (%) (Auto) 9.4 3.0-13.0 % Eosinophils (%) (Auto) 0.0 0.0-8.0 % Basophils (%) (Auto) 0.7 0.0-5.0 % Neutrophils # (Auto) 8.5 H 1.8-7.7 K/uL Lymphocytes # (Auto) 0.9 L 1.0-4.8 K/uL Monocytes # (Auto) 1.0 0.1-1.0 K/uL Eosinophils # (Auto) 0.00 0.00-0.70 K/uL Basophils # (Auto) 0.07 0.00-0.20 K/uL Absolute Immature Granulocyte (auto 0.10 0-1 K/uL Nucleated Red Blood Cells 0.0 0.0-0.19 % D-Dimer Quantitative (PE/DVT) 685 *H 0-500 ng/mL Sodium Level 143 136-145 mmol/L Potassium Level 3.7 3.5-5.1 mmol/L Chloride Level 108 101-111 mmol/L Carbon Dioxide Level 33 H 21-32 mmol/L Blood Urea Nitrogen 24 H 7-18 mg/dL Creatinine 0.7 0.5-1.0 mg/dL Glomerular Filtration Rate Calc 104 >90 mL/min Random Glucose 204 H 70-105 mg/dL Total Calcium 8.6 8.5-10.1 mg/dL Magnesium Level 2.00 1.80-2.40 mg/dL Total Bilirubin 0.3 0.2-1.0 mg/dL Aspartate Amino Transf (AST/SGOT) 39 H 10-37 U/L Alanine Aminotransferase (ALT/SGPT) 35 12-78 U/L Alkaline Phosphatase 78 50-136 U/L Total Protein 6.4 6.0-8.3 g/dL Albumin 2.2 L 3.5-5.0 g/dL Urine Opiates Screen NEGATIVE NEGATIVE Urine Barbiturates Screen NEGATIVE NEGATIVE Urine Phencyclidine Screen NEGATIVE NEGATIVE Urine Amphetamines Screen NEGATIVE NEGATIVE Urine Benzodiazepines Screen NEGATIVE NEGATIVE Urine Cocaine Screen POSITIVE H NEGATIVE Urine Marijuana (THC) Screen NEGATIVE NEGATIVE Prothrombin Time 11.3 9.6-11.6 SEC Prothromb Time International Ratio 1.01 0.85-1.15 Lactic Acid Level 1.8 0.8-2.5 mmol/L Ammonia 17 11-32 umol/L Serum Alcohol < 3 0-10 mg/dL Test 09/13/24 08:53 09/13/24 04:55 09/13/24 04:50 09/13/24 04:44 Range/Units Blood Gas Specimen Type Arterial Arterial Blood pH 7.357 7.350-7.450 Arterial Blood Partial Pressure CO2 53 H 32-45 mmHg Arterial Blood Partial Pressure O2 59.1 L 83.0-108.0 mmHg Arterial Blood HCO3 29.0 H 21.0-28.0 mmol/L Arterial Blood Oxygen Saturation 89.9 L 94.0-98.0 % Arterial Blood Base Excess 2.7 -2.0-3.0 mmol/L Hemoglobin (Blood Gas) 11.6 L 12.0-16.0 g/dL Sodium (Blood Gas) 139 136-145 MMOL/L Bedside Potassium (Blood Gas) 3.2 L 3.4-4.5 MMOL/L Bedside Chloride (Blood Gas) 100 98-107 MMOL/L Bedside Glucose (Blood Gas) 192 H 65-95 MG/DL Bedside Ionized Calcium (Blood Gas) 1.12 L 1.15-1.33 MMOL/L Bedside Lactic Acid (Blood Gas) 1.11 H 0.36-0.75 MMOL/L Blood Gas Temperature 37.0 35.5-37.0 CELSIUS Blood Gas Flow-by 3.00 0.00-15.00 L/min Blood Gas Vent Mode 3LNC ROOM AIR FiO2 32.0 % Blood Gas Specimen Comment RR JUAN Urine Color DARK-YELLOW YELLOW Urine Appearance CLOUDY H CLEAR Urine pH 6.0 5.0-8.0 Urine Specific Post 1.031 1.001-1.031 Urine Protein 200 H NEGATIVE mg/dL Urine Glucose (UA) 50 H NEGATIVE mg/dL Urine Ketones 5 H NEGATIVE mg/dL Urine Occult Blood SMALL H NEGATIVE Urine Nitrate NEGATIVE NEGATIVE Urine Bilirubin 0.5 H NEGATIVE mg/dL Urine Urobilinogen 12 H 0.2-1.0 mg/dL Urine Leukocyte Esterase NEGATIVE NEGATIVE Hallie/uL Urine RBC 6-10 H 0-1 /HPF Urine WBC 6-10 H 0-1 /HPF Urine Squamous Epithelial Cells FEW 0-2 /HPF Urine Bacteria FEW None Seen /HPF White Cell Morphology Comment See comments Hemoglobin A1c 5.6 4.0-6.0 % Estimated Average Glucose (eAG) 114 70-126 mg/dL Iron Level 31 L 50-170 mcg/dL Total Iron Binding Capacity 239 L 250-450 mcg/dL Percent Iron Saturation 12.9 L 22-44 % Direct Bilirubin 0.9 H 0.0-0.3 mg/dL B-Type Natriuretic Peptide 220 H 0-100 pg/mL Triglycerides Level 45 30-200 mg/dL Cholesterol Level 117 <200 mg/dL LDL Cholesterol 52 0-99 mg/dL HDL Cholesterol 59 35-85 mg/dL Procalcitonin 0.23 0.05-0.5 ng/mL Thyroid Stimulating Hormone (TSH) 0.39 0.36-3.74 uIU/mL Free Thyroxine (T4) Direct 1.05 0.76-1.46 ng/dL Free Triiodothyronine (T3) pg/mL 1.19 L 2.18-3.98 pg/mL HIV (1&2) Antibody Non-Reactive Negative HIV P24 Antigen, Qualitative Non-Reactive Negative Influenza Type A Antigen Negative For Type A NEGATIVE Influenza Type B Antigen Negative For Type B NEGATIVE SARS-CoV-2, RNA, NAAT NEGATIVE SARS CoV-2 NEGATIVE Group A Streptococcus Rapid negative NEGATIVE Current Medications Medications (Trade) Dose Ordered Sig/[place] Route PRN Reason Start Time Stop Time Status Last Admin Dose Admin Acetaminophen (TYLenol 325MG TAB) 650 mg Q4H PRN PO TEMPERATURE GREATER THAN 101.5 09/13/24 08:30 10/13/24 08:29 Acetaminophen (TYLenol 325MG TAB) 650 mg Q6H PRN PO MILD PAIN (1-3) 09/13/24 08:30 10/13/24 08:29 Albuterol (DUOneb) 1 UDVIAL [id number] IH 09/13/24 12:00 10/13/24 11:59 09/14/24 11:17 1 UDVIAL Ceftriaxone Sodium (ROCEphine 1G INJ) 1 gm Q24H IVPB 09/13/24 09:00 09/13/24 20:15 DC 09/13/24 10:30 1 GM Ceftriaxone Sodium (Rocephin 2gm Inj) 2 gm Q24H IVPB 09/14/24 09:00 09/24/24 08:59 09/14/24 08:32 2 GM Chlordiazepoxide HCl (LIBrium 25 MG CAP) 25 mg Q2H PRN PO ALCOHOL WITHDRAWAL PROTOCOL 09/13/24 20:30 09/20/24 20:29 Chlordiazepoxide HCl (LIBrium 25 MG CAP) 50 mg Q1H PRN PO ALCOHOL WITHDRAWAL PROTOCOL 09/13/24 20:30 09/20/24 20:29 Doxycycline Hyclate 250 ml @ 125 mls/hr Q12H IV 09/13/24 09:00 09/23/24 08:59 09/14/24 09:54 125 MLS/HR Enoxaparin Sodium (Lovenox) 30 mg DAILY SQ 09/13/24 09:00 10/13/24 08:59 09/14/24 08:46 30 MG Folic Acid (FOLic ACID 1 MG TABLET) 1 mg DAILY PO 09/14/24 09:00 09/16/24 09:01 09/14/24 08:42 1 MG Guaifenesin/ Dextromethorphan (RobiTUSSin DM 200/20MG 10ML) 10 ml Q6H PRN PO COUGH 09/14/24 13:00 10/14/24 12:59 09/14/24 13:27 10 ML Ipratropium [place] (AtrovENT UD) 0.5 MG [id number] IH 09/13/24 12:00 09/14/24 02:48 DC Levofloxacin/ Dextrose 50 ml @ 100 mls/hr DAILY IVPB 09/13/24 09:00 09/13/24 09:51 DC Levofloxacin/ Dextrose 100 ml @ 100 mls/hr Q24H IV 09/13/24 07:00 09/13/24 12:50 DC 09/13/24 07:41 100 MLS/HR Lorazepam (AtiVAN) 2 mg Q4H PRN IVP ALCOHOL WITHDRAWAL PROTOCOL 09/13/24 20:30 09/20/24 20:29 Lorazepam (AtiVAN) 4 mg Q2H PRN IVP ALCOHOL WITHDRAWAL PROTOCOL 09/13/24 20:30 09/20/24 20:29 Magnesium Sulfate 50 ml @ 0 mls/hr PROTOCOL PRN IV hypomagnesemia 09/13/24 09:00 09/13/24 09:18 DC Magnesium Sulfate 50 ml @ 0 mls/hr PROTOCOL PRN IV LOW MAGNESIUM 09/13/24 09:30 10/13/24 09:29 Methylprednisolone Sodium Succinate (Solu-medROL 40MG) 40 mg BID IVP 09/13/24 21:00 10/13/24 20:59 09/14/24 08:42 40 MG Methylprednisolone Sodium Succinate (Solu-medROL 125MG) 125 mg Q6H IVP 09/13/24 09:00 09/13/24 09:17 DC Multivitamins Therapeutic (Multivitamin Tablet) 1 tab DAILY PO 09/14/24 09:00 10/14/24 08:59 09/14/24 08:42 1 TAB Ondansetron HCl (zoFRAN 4MG INJ) 4 mg Q6H PRN IVP NAUSEA/VOMITING 09/13/24 08:30 10/13/24 08:29 Pharmacy Profile Note (Pharmacy Communication) 1 each PROTOCOL PRN MISC ETOH Withdrawal Score changes 09/13/24 20:30 09/13/24 20:31 DC Potassium Chloride 100 ml @ 100 mls/hr AD PRN IV POTASSIUM PROTOCOL 09/13/24 09:00 09/13/24 09:19 DC Potassium Chloride 100 ml @ 100 mls/hr AD PRN IV POTASSIUM PROTOCOL 09/13/24 09:30 10/13/24 09:29 Potassium Chloride (K-Dur/Klor-Con 20meq) 20 meq AD PRN PO POTASSIUM PROTOCOL 09/13/24 09:00 10/13/24 08:59 Potassium Chloride (KCl 10% Elixir 20meq/15ml) 20 meq AD PRN PO POTASSIUM PROTOCOL 09/13/24 09:00 10/13/24 08:59 09/13/24 19:01 20 MEQ Promethazine HCl (Phenergan) 25 mg Q6H PRN PO NAUSEA 09/13/24 20:30 10/13/24 20:29 Sodium Chloride 1,000 ml @ 50 mls/hr Q20H IV 09/13/24 09:00 10/13/24 08:59 09/13/24 10:30 50 MLS/HR Thiamine HCl (Vitamin B-1) 100 mg DAILY IM 09/14/24 09:00 09/16/24 09:01 09/14/24 08:41 100 MG DIAGNOSTICS / RADIOLOGY: [ ] ASSESSMENT: [Acute respiratory failure, POA Chronic obstructive pulmonary disease exacerbation, POA Acute bronchitis, POA Sepsis, POA due to above Severe hypokalemia, POA Elevated BNP, POA Hyperglycemia, POA Urinary tract infection, POA ] PLAN: [Patient will be admitted in PCCU Continue with oxygen supplementation on BiPAP support We will consult yield improvement engineer, Dr. Campos for further recommendations Patient will continue with IV antibiotics ceftriaxone and doxycycline Patient will continue with IV steroid with [id number] mg q.6 hours Patient will continue with IV fluids with NS 50 mL/hour We will order 2D echo We will order drug screen, lipid panel, T4 and T3, TSH, iron panel We will follow up with urine culture and blood culture We will order HIV 1-2 w/reflex GI and DVT ppx We will order labs in am Full code LEEANNE TINEO MD Sep 14, 2024 13:31
--- NOTE | 2024-09-14 21:10 | PN ---
DATE OF SERVICE: 09/14/2024 INFECTIOUS DISEASE FOLLOWUP NOTE SUBJECTIVE: The patient is seen and examined at bedside today. The patient has no fever, no chills. No nausea, no vomiting. Still has some cough. No hemoptysis. CT chest shows bilateral pneumonia. She is tolerating antibiotic. PHYSICAL EXAMINATION: VITAL SIGNS: Temperature 97.5. EYES: No icterus. Pupils equal and reactive. HENT: No oral thrush seen. Moist oral mucosa. NECK: Supple. No JVD or thyromegaly. LUNGS: No crackles. No rhonchi. CARDIOVASCULAR SYSTEM: S1, S2 regular. No murmur heard. ABDOMEN: Full, soft. Bowel sounds are still present. CENTRAL NERVOUS SYSTEM: The patient is awake, alert. No focal deficits. SKIN: No rashes, no itchiness. LYMPHATIC: No peripheral lymphadenopathy. BACK: No deformity, no pressure ulcer. ASSESSMENT: A 54-year-old female with multiple current problems that include: * Sepsis. * Bilateral pneumonia. * Urinary tract infection. * COPD. PLAN: * Continue ceftriaxone. * Continue doxycycline. * Follow up culture. * Continue pain management. * Continue antiemetic. * Continue GI prophylaxis. TID: [id number] RECEIPT: [id number] [facility]
--- NOTE | 2024-09-14 21:36 | PN ---
[facility] PROGRESS NOTE Date Patient Seen: Sep 14, 2024 Time of Visit: 12:00 Supervising Physician: DANNY JACOB Primary Care Physician: self referral Outpatient Specialists:none Inpatient Consults: Brandon Tse MD Attending : Dr Homar Kumar MD PROBLEM LIST: Acute toxic metabolic encephalopathy, POA Acute hypoxemic respiratory failure, POA COPD exacerbation, POA Leukocytosis, POA Normocytic anemia, POA Compensated respiratory acidosis, POA Hyperglycemia, POA Electrolyte derangement with (hypokalemia, hypocalcemia), POA Drug abuse +for cocaine, POA Current smoker, current ETOH use Overweight patient seen and examined awake, alert, well oriented, she remains on 3L of oxygen via NC since admission unable to wean off complaining of significant cough and congestion for which she will be place on antitussive, will continue with antibiotic therapy follow up on sputum cultures. REVIEW OF SYSTEMS: 12 point ROS reviewed with patient. Pertinent positives mentioned above. Otherwise negative. PHYSICAL EXAM: GENERAL: awake, on room air HEENT: EOMI, Sclera non icteric, moist mucosa NECK: Supple, no JVD, trachea midline LUNGS: Clear breath sounds bilaterally. crackles, decreased breath sounds HEART: Regular rate and rhythm. Normal S1 and S2, without murmurs ABD: Abdomen soft, nontender. Bowel sounds present EXT: No clubbing cyanosis or edema NEURO: lethargic, no focal weakness Vital Signs (last 8hr) Date Time Temp Pulse Resp B/P (MAP) Pulse Ox O2 Delivery O2 Flow Rate FiO2 09/14/24 20:02 94 Nasal Cannula* 3 32 09/14/24 20:00 98.8 61 20 127/54 94 Nasal Cannula 3.0 09/14/24 18:32 99 20 N/Cannula Low lpm 2.0 28 09/14/24 18:32 99 22 09/14/24 16:00 98.6 96 18 133/85 94 Nasal Cannula 2.0 LABS: Hematology Labs: Test 09/14/24 05:02 09/13/24 04:50 Range/Units White Blood Count 10.6 4.8-10.8 K/uL Red Blood Count 3.36 L 4.00-5.50 MIL/uL Hemoglobin 10.4 L 12.0-16.0 g/dL Hematocrit 33.4 L 36-48 % Mean Corpuscular Volume 99.4 H 79-99 fL Mean Corpuscular Hemoglobin 31.0 27.0-33.0 pg Mean Corpuscular Hemoglobin Concent 31.1 L 32.0-36.0 g/dL Red Cell Distribution Width 12.0 11.0-15.5 % Platelet Count 215 130-400 K/uL Mean Platelet Volume 13.2 H 7.5-10.5 fL Immature Granulocyte % (Auto) 0.9 0-1 % Neutrophils (%) (Auto) 80.4 H 40.0-77.0 % Lymphocytes (%) (Auto) 8.6 L 21.0-51.0 % Monocytes (%) (Auto) 9.4 3.0-13.0 % Eosinophils (%) (Auto) 0.0 0.0-8.0 % Basophils (%) (Auto) 0.7 0.0-5.0 % Neutrophils # (Auto) 8.5 H 1.8-7.7 K/uL Lymphocytes # (Auto) 0.9 L 1.0-4.8 K/uL Monocytes # (Auto) 1.0 0.1-1.0 K/uL Eosinophils # (Auto) 0.00 0.00-0.70 K/uL Basophils # (Auto) 0.07 0.00-0.20 K/uL Absolute Immature Granulocyte (auto 0.10 0-1 K/uL Nucleated Red Blood Cells 0.0 0.0-0.19 % White Cell Morphology Comment See comments Chemistry Labs: Test 09/14/24 05:02 09/13/24 09:59 09/13/24 04:50 Range/Units Sodium Level 143 136-145 mmol/L Potassium Level 3.7 3.5-5.1 mmol/L Chloride Level 108 101-111 mmol/L Carbon Dioxide Level 33 H 21-32 mmol/L Blood Urea Nitrogen 24 H 7-18 mg/dL Creatinine 0.7 0.5-1.0 mg/dL Glomerular Filtration Rate Calc 104 >90 mL/min Random Glucose 204 H 70-105 mg/dL Total Calcium 8.6 8.5-10.1 mg/dL Magnesium Level 2.00 1.80-2.40 mg/dL Total Bilirubin 0.3 0.2-1.0 mg/dL Aspartate Amino Transf (AST/SGOT) 39 H 10-37 U/L Alanine Aminotransferase (ALT/SGPT) 35 12-78 U/L Alkaline Phosphatase 78 50-136 U/L Total Protein 6.4 6.0-8.3 g/dL Albumin 2.2 L 3.5-5.0 g/dL Lactic Acid Level 1.8 0.8-2.5 mmol/L Ammonia 17 11-32 umol/L Hemoglobin A1c 5.6 4.0-6.0 % Estimated Average Glucose (eAG) 114 70-126 mg/dL Iron Level 31 L 50-170 mcg/dL Total Iron Binding Capacity 239 L 250-450 mcg/dL Percent Iron Saturation 12.9 L 22-44 % Direct Bilirubin 0.9 H 0.0-0.3 mg/dL B-Type Natriuretic Peptide 220 H 0-100 pg/mL Triglycerides Level 45 30-200 mg/dL Cholesterol Level 117 <200 mg/dL LDL Cholesterol 52 0-99 mg/dL HDL Cholesterol 59 35-85 mg/dL Procalcitonin 0.23 0.05-0.5 ng/mL Thyroid Stimulating Hormone (TSH) 0.39 0.36-3.74 uIU/mL Free Thyroxine (T4) Direct 1.05 0.76-1.46 ng/dL Free Triiodothyronine (T3) pg/mL 1.19 L 2.18-3.98 pg/mL Coagulation Labs: Test 09/14/24 05:02 09/13/24 12:36 Range/Units D-Dimer Quantitative (PE/DVT) 685 *H 0-500 ng/mL Prothrombin Time 11.3 9.6-11.6 SEC Prothromb Time International Ratio 1.01 0.85-1.15 DIAGNOSTICS / RADIOLOGY RESULTS: reviewed PLAN antitussive Robitussin 30 ml every 6 hours for cough Continue with steroids Continue on antibiotic therapy nebulizer treatments as needed monitor vital signs follow up on sputum cultures. NEURO: Minimize central acting medications as possible. Maintain fall precautions, adequate lighting during the day PULMONARY: Supplemental 02 as needed. Maintain aspiration precautions at all times CARDIOVASCULAR: Follow hemodynamics. Vital signs per facility protocol GI & NUTRITION: Continue with nutritional support. Continue stool softeners and laxatives as needed. KIDNEYS & ELECTROLYTES: Strict monitoring of intake, output and overall fluid balance. Avoid nephrotoxic medications to the extent possible. Medications to be dosed according to renal function. Monitor electrolytes and replace as needed ENDOCRINE: Maintain blood glucose between 100-180 at all times. Hypoglycemia protocol in place INFECTIOUS DISEASE: Trend temperature, WBC and procalcitonin level Follow cultures, deescalate antibiotics as soon as possible. Panculture if new onset fever ONCOLOGY/HEMATOLOGY/COAGULATION: Monitor for s/s of bleeding Monitor hemoglobin, coagulation studies as needed SKIN: Pressure ulcer prevention per facility protocol Specialty mattress ORTHO/REHAB: Continue PT/OT Prophylaxis: Continue GI and DVT prophylaxis Code Status: Full Resuscitation Disposition: TBD ATTESTATION BY PHYSICIAN Documentation assistance provided by a scribe, information recorded by the scribe was done at my direction and has been reviewed and validated by me." STEVE DELGADO MD I personally scribed for CECIL DELGADO MD (THEODORE) on 09/14/24 at 21:36. Electronically submitted by Susanna Guzman ([email or web address]). I personally scribed for CECIL DELGADO MD (THEODORE) on 09/14/24 at 21:43. Electronically submitted by Susanna Guzman ([id number]). CECIL DELGADO MD Sep 14, 2024 21:36
[2024-09-15] VITALS (15 sets, daily range): BP systolic 109–174; BP diastolic 50–86; PULSE 54–101; RESP 19–24; TEMP 97.8–98.8; O2SAT 94–98
--- NOTE | 2024-09-15 09:26 | NUR ---
neb tx given 909, pt has audible wheezing, no change after neb given Addendum: 09/15/24 at 0932 by RT TRINA RT Amended: Links added.
[2024-09-15 10:12] LABS: ABG BASE EXCESS 8.2 mmol/L (-2.0-3.0); ABG HCO3 34.1 mmol/L (21.0-28.0); ABG OXYGEN SATURATION 92.1 % (94.0-98.0); ABG PCO2 52 mmHg (32-45); ABG PH 7.437 (7.350-7.450); PO2, ARTERIAL BG 61.7 mmHg (83.0-108.0); VENT MODE, BG NC (ROOM AIR)
[2024-09-15] MEDS ORDERED: IpraTROPium/alBUTERol SULFATE 3 ML SOLUTION IH SCH (11:00)
[2024-09-15] MEDS: Solu-medROL 40MG VIAL IVP SCH (11:23)
--- NOTE | 2024-09-15 11:52 | HMCIMG ---
CHEST 1VW REASON: SOB, COMPARISON: 09/14/2024 FINDINGS: Heart size is normal. There are mildly increased perihilar interstitial markings, nonspecific, this can be seen with viral pneumonia or interstitial edema. Overall appearance is unchanged given differences in technique. There are no pleural effusions. Mediastinum and bony thorax appear unremarkable. IMPRESSION: 1. Mildly increased perihilar interstitial markings, nonspecific, unchanged.
[2024-09-15] MEDS: acetylCYSTeine 20% 200MG/ML 4ML VIAL ONE (12:18)
[2024-09-15] MEDS: acetylCYSTeine 20% 200MG/ML 4ML VIAL IH SCH (12:31)
[2024-09-15] MEDS: IpraTROPium/alBUTERol SULFATE 3 ML SOLUTION IH SCH (12:31)
--- NOTE | 2024-09-15 13:46 | PN ---
[facility] PROGRESS NOTE Date of Service: Sep 15, 2024 Time of Service: 13:45 SUBJECTIVE: [ ] 09/14/24 patient was seen and examined. Case discussed with the RN. She was still short of breath and requiring about3 L of oxygen. CT chest was negative for PE and suggests pneumonia. We will continue broad-spectrum IV antibiotics patient was seen and examined. Case discussed with the RN. She was experiencing respiratory distress this morning and oxygen was turned up to 6 L. with breathing treatment she is doing slightly better and trying to expectorate REVIEW OF SYSTEMS CONSTITUTIONAL: Denies fevers, chills, or night sweats. No unintentional weight loss reported. NEUROLOGICAL: Denies headache, amaurosis fugax, motor weakness, sensory deficit, vertigo/spinning sensation, gait abnormalities, or tremors. ENT: No hearing loss, otalgia, otorrhea, rhinitis, rhinorrhea, hoarseness, or sore throat. CARDIOVASCULAR: Denies any exertional angina, dyspnea on exertion, orthopnea, paroxysmal nocturnal dyspnea, palpitations, life-threatening arrhythmias, claudication. PULMONARY: Denies any shortness of breath, cough, phlegm/sputum, hemoptysis, pleuritic chest pain. SLEEP: Denies morning headaches, daytime somnolence or napping. Denies difficulty falling asleep, staying asleep, waking from sleep. Denies knowledge of snoring. GASTROINTESTINAL: Denies any type of dysphagia to either liquids or solids. Denies nausea, vomiting, pyrosis, early satiety, abdominal pain, diarrhea, constipation, or changes in stool consistency or caliber. Denies coffee-ground emesis, hematemesis, hematochezia, or melanotic stools. GENITOURINARY: Denies frequency, urgency, nocturia, hematuria or incontinence (Storage/Irritative symptoms.) Low urinary stream, straining to void, urinary intermittency or hesitancy, splitting of the voiding stream, terminal dribbling. ENDOCRINOLOGIC: Denies polyuria, polydipsia, polyphagia or heat/cold intolerances. HEMATOLOGIC: Denies thrombophilia/previous clots, or coagulopathy/bleeding disorders. ONCOLOGIC: Denies personal history of malignancy. DERMATOLOGIC: Denies rashes or pruritus. PSYCHIATRIC: Denies any suicidal or homicidal ideation. Denies hallucinations. PHYSICAL EXAM GENERAL APPEARANCE: Patient is drowsy, generalized weakness NEUROLOGICAL: Cranial nerves II-XII grossly intact. Motor is 5/5 in bilateral upper and lower extremities proximal to distal. No sensory deficits. HEENT: Face is symmetric. Pupils are equal and reactive. Extraocular movements are intact. NECK: Supple. No JVD. No thyromegaly. No submental, submandibular, pre- /postauricular, occipital or supraclavicular lymphadenopathy. CHEST: Normal chest expansion. No Telemetry. LUNGS: Noted rales, rhonchi, wheezing, and congestion CARDIOVASCULAR: Regular. S1 and S2 normal. No appreciable rubs, murmurs or gallops. ABDOMEN: Soft, nontender, and nondistended. There is no rebound, voluntary guarding, or rigidity. : Deferred. No San[place]. EXTREMITIES: Non-edematous and not cyanotic. No clubbing. Good capillary refill. SKIN: No skin breakdown. Vital Signs (last 8hr) Date Time Temp Pulse Resp B/P (MAP) Pulse Ox O2 Delivery O2 Flow Rate FiO2 09/15/24 12:34 89 19 09/15/24 11:56 98.1 62 24 174/74 94 Nasal Cannula 3.0 28 09/15/24 09:10 92 24 09/15/24 08:00 Nasal Cannula* 3 32 09/15/24 07:15 97.9 101 24 120/86 97 Nasal Cannula 3.0 28 09/15/24 06:37 96 22 09/15/24 06:37 99 20 N/Cannula Low lpm 3.0 32 LABS: Laboratory: Test 09/15/24 10:11 09/14/24 05:02 Range/Units Blood Gas Specimen Type Arterial Arterial Blood pH 7.437 7.350-7.450 Arterial Blood Partial Pressure CO2 52 H 32-45 mmHg Arterial Blood Partial Pressure O2 61.7 L 83.0-108.0 mmHg Arterial Blood HCO3 34.1 H 21.0-28.0 mmol/L Arterial Blood Oxygen Saturation 92.1 L 94.0-98.0 % Arterial Blood Base Excess 8.2 H -2.0-3.0 mmol/L Blood Gas Temperature 37.0 35.5-37.0 CELSIUS Blood Gas Vent Mode NC ROOM AIR FiO2 32.0 % Blood Gas Specimen Comment GIGI STEEL White Blood Count 10.6 4.8-10.8 K/uL Red Blood Count 3.36 L 4.00-5.50 MIL/uL Hemoglobin 10.4 L 12.0-16.0 g/dL Hematocrit 33.4 L 36-48 % Mean Corpuscular Volume 99.4 H 79-99 fL Mean Corpuscular Hemoglobin 31.0 27.0-33.0 pg Mean Corpuscular Hemoglobin Concent 31.1 L 32.0-36.0 g/dL Red Cell Distribution Width 12.0 11.0-15.5 % Platelet Count 215 130-400 K/uL Mean Platelet Volume 13.2 H 7.5-10.5 fL Immature Granulocyte % (Auto) 0.9 0-1 % Neutrophils (%) (Auto) 80.4 H 40.0-77.0 % Lymphocytes (%) (Auto) 8.6 L 21.0-51.0 % Monocytes (%) (Auto) 9.4 3.0-13.0 % Eosinophils (%) (Auto) 0.0 0.0-8.0 % Basophils (%) (Auto) 0.7 0.0-5.0 % Neutrophils # (Auto) 8.5 H 1.8-7.7 K/uL Lymphocytes # (Auto) 0.9 L 1.0-4.8 K/uL Monocytes # (Auto) 1.0 0.1-1.0 K/uL Eosinophils # (Auto) 0.00 0.00-0.70 K/uL Basophils # (Auto) 0.07 0.00-0.20 K/uL Absolute Immature Granulocyte (auto 0.10 0-1 K/uL Nucleated Red Blood Cells 0.0 0.0-0.19 % D-Dimer Quantitative (PE/DVT) 685 *H 0-500 ng/mL Sodium Level 143 136-145 mmol/L Potassium Level 3.7 3.5-5.1 mmol/L Chloride Level 108 101-111 mmol/L Carbon Dioxide Level 33 H 21-32 mmol/L Blood Urea Nitrogen 24 H 7-18 mg/dL Creatinine 0.7 0.5-1.0 mg/dL Glomerular Filtration Rate Calc 104 >90 mL/min Random Glucose 204 H 70-105 mg/dL Total Calcium 8.6 8.5-10.1 mg/dL Magnesium Level 2.00 1.80-2.40 mg/dL Total Bilirubin 0.3 0.2-1.0 mg/dL Aspartate Amino Transf (AST/SGOT) 39 H 10-37 U/L Alanine Aminotransferase (ALT/SGPT) 35 12-78 U/L Alkaline Phosphatase 78 50-136 U/L Total Protein 6.4 6.0-8.3 g/dL Albumin 2.2 L 3.5-5.0 g/dL Current Medications Medications (Trade) Dose Ordered Sig/Korey Route PRN Reason Start Time Stop Time Status Last Admin Dose Admin Acetaminophen (TYLenol 325MG TAB) 650 mg Q4H PRN PO TEMPERATURE GREATER THAN 101.5 09/13/24 08:30 10/13/24 08:29 Acetaminophen (TYLenol 325MG TAB) 650 mg Q6H PRN PO MILD PAIN (1-3) 09/13/24 08:30 10/13/24 08:29 Acetylcysteine (MUComyst 20% 4ML) 600mg = 3ml [id number] 09/15/24 12:00 09/17/24 12:00 09/15/24 12:31 800 MG Albuterol (DUOneb) 1 UDVIAL Q4H4 09/15/24 11:00 09/15/24 12:25 DC Albuterol (DUOneb) 1 UDVIAL [id number] 09/15/24 12:30 10/15/24 10:59 09/15/24 12:31 1 UDVIAL Albuterol (DUOneb) 1 UDVIAL [id number] 09/13/24 12:00 09/15/24 10:44 DC 09/15/24 06:35 1 UDVIAL Ceftriaxone Sodium (ROCEphine 1G INJ) 1 gm Q24H IVPB 09/13/24 09:00 09/13/24 20:15 DC 09/13/24 10:30 1 GM Ceftriaxone Sodium (Rocephin 2gm Inj) 2 gm Q24H IVPB 09/14/24 09:00 09/24/24 08:59 09/15/24 08:59 2 GM Chlordiazepoxide HCl (LIBrium 25 MG CAP) 25 mg Q2H PRN PO ALCOHOL WITHDRAWAL PROTOCOL 09/13/24 20:30 09/20/24 20:29 Chlordiazepoxide HCl (LIBrium 25 MG CAP) 50 mg Q1H PRN PO ALCOHOL WITHDRAWAL PROTOCOL 09/13/24 20:30 09/20/24 20:29 Doxycycline Hyclate 250 ml @ 125 mls/hr Q12H IV 09/13/24 09:00 09/23/24 08:59 09/15/24 08:59 125 MLS/HR Enoxaparin Sodium (Lovenox) 30 mg DAILY SQ 09/13/24 09:00 10/13/24 08:59 09/15/24 08:58 30 MG Folic Acid (FOLic ACID 1 MG TABLET) 1 mg DAILY PO 09/14/24 09:00 09/16/24 09:01 09/15/24 08:55 1 MG Guaifenesin/ Dextromethorphan (RobiTUSSin DM 200/20MG 10ML) 10 ml Q6H PRN PO COUGH 09/14/24 13:00 10/14/24 12:59 09/14/24 19:54 10 ML Ipratropium [place] (AtrovENT UD) 0.5 MG [id number] IH 09/13/24 12:00 09/14/24 02:48 DC Levofloxacin/ Dextrose 50 ml @ 100 mls/hr DAILY IVPB 09/13/24 09:00 09/13/24 09:51 DC Levofloxacin/ Dextrose 100 ml @ 100 mls/hr Q24H IV 09/13/24 07:00 09/13/24 12:50 DC 09/13/24 07:41 100 MLS/HR Lorazepam (AtiVAN) 2 mg Q4H PRN IVP ALCOHOL WITHDRAWAL PROTOCOL 09/13/24 20:30 09/20/24 20:29 Lorazepam (AtiVAN) 4 mg Q2H PRN IVP ALCOHOL WITHDRAWAL PROTOCOL 09/13/24 20:30 09/20/24 20:29 Magnesium Sulfate 50 ml @ 0 mls/hr PROTOCOL PRN IV hypomagnesemia 09/13/24 09:00 09/13/24 09:18 DC Magnesium Sulfate 50 ml @ 0 mls/hr PROTOCOL PRN IV LOW MAGNESIUM 09/13/24 09:30 10/13/24 09:29 Methylprednisolone Sodium Succinate (Solu-medROL 40MG) 40 mg BID IVP 09/13/24 21:00 09/15/24 10:44 DC 09/15/24 08:54 40 MG Methylprednisolone Sodium Succinate (Solu-medROL 40MG) 80 mg Q6H IVP 09/15/24 11:00 10/15/24 10:59 09/15/24 11:23 80 MG Methylprednisolone Sodium Succinate (Solu-medROL 125MG) 125 mg Q6H IVP 09/13/24 09:00 09/13/24 09:17 DC Multivitamins Therapeutic (Multivitamin Tablet) 1 tab DAILY PO 09/14/24 09:00 10/14/24 08:59 09/15/24 08:55 1 TAB Ondansetron HCl (zoFRAN 4MG INJ) 4 mg Q6H PRN IVP NAUSEA/VOMITING 09/13/24 08:30 10/13/24 08:29 Pharmacy Profile Note (Pharmacy Communication) 1 each PROTOCOL PRN MISC ETOH Withdrawal Score changes 09/13/24 20:30 09/13/24 20:31 DC Potassium Chloride 100 ml @ 100 mls/hr AD PRN IV POTASSIUM PROTOCOL 09/13/24 09:00 09/13/24 09:19 DC Potassium Chloride 100 ml @ 100 mls/hr AD PRN IV POTASSIUM PROTOCOL 09/13/24 09:30 10/13/24 09:29 Potassium Chloride (K-Dur/Klor-Con 20meq) 20 meq AD PRN PO POTASSIUM PROTOCOL 09/13/24 09:00 10/13/24 08:59 Potassium Chloride (KCl 10% Elixir 20meq/15ml) 20 meq AD PRN PO POTASSIUM PROTOCOL 09/13/24 09:00 10/13/24 08:59 09/13/24 19:01 20 MEQ Promethazine HCl (Phenergan) 25 mg Q6H PRN PO NAUSEA 09/13/24 20:30 10/13/24 20:29 Sodium Chloride 1,000 ml @ 50 mls/hr Q20H IV 09/13/24 09:00 10/13/24 08:59 09/15/24 01:06 50 MLS/HR Thiamine HCl (Vitamin B-1) 100 mg DAILY IM 09/14/24 09:00 09/16/24 09:01 09/15/24 08:56 100 MG DIAGNOSTICS / RADIOLOGY: [ ] ASSESSMENT: [Acute respiratory failure, POA Chronic obstructive pulmonary disease exacerbation, POA Acute bronchitis, POA Sepsis, POA due to above Severe hypokalemia, POA Elevated BNP, POA Hyperglycemia, POA Urinary tract infection, POA ] PLAN: [Patient will be admitted in PCCU Continue with oxygen supplementation on BiPAP support We will consult excavation laborer, Dr. Campos for further recommendations Patient will continue with IV antibiotics ceftriaxone and doxycycline Patient will continue with IV steroid with [id number] mg q.6 hours Patient will continue with IV fluids with NS 50 mL/hour We will order 2D echo We will order drug screen, lipid panel, T4 and T3, TSH, iron panel We will follow up with urine culture and blood culture We will order HIV 1-2 w/reflex GI and DVT ppx We will order labs in am Full code LEEANNE TINEO MD Sep 15, 2024 13:46
--- NOTE | 2024-09-15 14:03 | PN ---
[facility] PROGRESS NOTE Date Patient Seen: Sep 15, 2024 Time of Visit: 13:57 Supervising Physician: Dr Escoto Primary Care Physician: self referral Outpatient Specialists:none Inpatient Consults: Brandon Tse MD Attending : Dr Homar Kumar MD PROBLEM LIST: Acute toxic metabolic encephalopathy, POA Acute hypoxemic respiratory failure, POA Acute on chronic COPD exacerbation, POA Leukocytosis, POA Normocytic anemia, POA Compensated respiratory acidosis, POA Hyperglycemia, POA Electrolyte derangement with (hypokalemia, hypocalcemia), POA Drug abuse +for cocaine, POA Current smoker, current ETOH use Overweight Plan Summary: Supplemental oxygen as needed Duo nebs every 4 hours Mucomyst 20%/ 3mL every 8 hours times48 hours Lasix 40 mg IV every 12 hours x4 doses Continue Rocephin Continue doxycycline Obtain sputum culture Montelukast 10 mg daily Solu-Medrol 80 mg IV every 6 hours times 24 hours and taper down to 40 every 8 hours in a.m. Patient had been advised to remain 100% abstinence from cocaine use This is a 64-year-old female with a history of "Bronchitis", COPD, who presented to emergency department via EMS after being found in an alley lethargic and with shortness of breath. She was admitted under [facility] team for acute hypoxic respiratory failure and we are consulted for shortness of breath by primary team. On behalf of [facility] thank you for given us the opportunity to participate in the care of this patient. On arrival to the emergency department patient had a fever of 101.1 heart rate 107 respiratory rate of 34 with a blood pressure of 132/73 with a oximetry of 78% at room air. Laboratory showed white count of 11.2 H&H 11.4/34.7 and a platelet count that was normal neutrophils were 82. Chemistries showed potassium of 3.2 carbon dioxide of 34 glucose 195 mg/dL iron of 31 TIBC 239% saturation 12.9 ammonia level 17 procalcitonin 0.23. On UDS patient is positive for cocaine. Urinalysis showed: cloudy appearance urine protein 200, glucose 50 ketones five occult blood small bilirubin 0.5 urobilinogen 12 RBCs 6-10 WBCs 6-10. HIV antibody nonreactive. Influenza type a and B negative. SARS COVID-19 negative. And rapid strep negative. Chest x-ray with no acute pulmonary infiltrates. 09/14 - patient seen and examined awake, alert, well oriented, she remains on 3L of oxygen via NC since admission unable to wean off complaining of significant cough and congestion for which she will be place on antitussive, will continue with antibiotic therapy follow up on sputum cultures. 09/15 - patient is seen and evaluated at the bedside. Patient sitting in bed with worsening respiratory failure. Patient with scattered rhonchi and wheezing bilaterally. Patient reports she is unable to breathe at this time. Ordered a stat chest x-ray and ABGs and currently pending. Recommend Lasix 40 mg IV every 12 hours x4 doses, continue IV antibiotics. Obtain a sputum culture. High-dose steroids for24 hours and begin a taper down. Patient has been advised to remain 100% abstinence from cocaine use. We will continue to follow up with you. REVIEW OF SYSTEMS: 12 point ROS reviewed with patient. Pertinent positives mentioned above. Otherwise negative. PHYSICAL EXAM: GENERAL: awake, on room air HEENT: EOMI, Sclera non icteric, moist mucosa NECK: Supple, no JVD, trachea midline LUNGS: Clear breath sounds bilaterally. crackles, decreased breath sounds HEART: Regular rate and rhythm. Normal S1 and S2, without murmurs ABD: Abdomen soft, nontender. Bowel sounds present EXT: No clubbing cyanosis or edema NEURO: lethargic, no focal weakness Vital Signs (last 8hr) Date Time Temp Pulse Resp B/P (MAP) Pulse Ox O2 Delivery O2 Flow Rate FiO2 09/15/24 12:34 89 19 09/15/24 11:56 98.1 62 24 174/74 94 Nasal Cannula 3.0 28 09/15/24 09:10 92 24 09/15/24 08:00 Nasal Cannula* 3 32 09/15/24 07:15 97.9 101 24 120/86 97 Nasal Cannula 3.0 28 09/15/24 06:37 96 22 09/15/24 06:37 99 20 N/Cannula Low lpm 3.0 32 LABS: Hematology Labs: Test 09/14/24 05:02 Range/Units White Blood Count 10.6 4.8-10.8 K/uL Red Blood Count 3.36 L 4.00-5.50 MIL/uL Hemoglobin 10.4 L 12.0-16.0 g/dL Hematocrit 33.4 L 36-48 % Mean Corpuscular Volume 99.4 H 79-99 fL Mean Corpuscular Hemoglobin 31.0 27.0-33.0 pg Mean Corpuscular Hemoglobin Concent 31.1 L 32.0-36.0 g/dL Red Cell Distribution Width 12.0 11.0-15.5 % Platelet Count 215 130-400 K/uL Mean Platelet Volume 13.2 H 7.5-10.5 fL Immature Granulocyte % (Auto) 0.9 0-1 % Neutrophils (%) (Auto) 80.4 H 40.0-77.0 % Lymphocytes (%) (Auto) 8.6 L 21.0-51.0 % Monocytes (%) (Auto) 9.4 3.0-13.0 % Eosinophils (%) (Auto) 0.0 0.0-8.0 % Basophils (%) (Auto) 0.7 0.0-5.0 % Neutrophils # (Auto) 8.5 H 1.8-7.7 K/uL Lymphocytes # (Auto) 0.9 L 1.0-4.8 K/uL Monocytes # (Auto) 1.0 0.1-1.0 K/uL Eosinophils # (Auto) 0.00 0.00-0.70 K/uL Basophils # (Auto) 0.07 0.00-0.20 K/uL Absolute Immature Granulocyte (auto 0.10 0-1 K/uL Nucleated Red Blood Cells 0.0 0.0-0.19 % Chemistry Labs: Test 09/14/24 05:02 Range/Units Sodium Level 143 136-145 mmol/L Potassium Level 3.7 3.5-5.1 mmol/L Chloride Level 108 101-111 mmol/L Carbon Dioxide Level 33 H 21-32 mmol/L Blood Urea Nitrogen 24 H 7-18 mg/dL Creatinine 0.7 0.5-1.0 mg/dL Glomerular Filtration Rate Calc 104 >90 mL/min Random Glucose 204 H 70-105 mg/dL Total Calcium 8.6 8.5-10.1 mg/dL Magnesium Level 2.00 1.80-2.40 mg/dL Total Bilirubin 0.3 0.2-1.0 mg/dL Aspartate Amino Transf (AST/SGOT) 39 H 10-37 U/L Alanine Aminotransferase (ALT/SGPT) 35 12-78 U/L Alkaline Phosphatase 78 50-136 U/L Total Protein 6.4 6.0-8.3 g/dL Albumin 2.2 L 3.5-5.0 g/dL Coagulation Labs: Test 09/14/24 05:02 Range/Units D-Dimer Quantitative (PE/DVT) 685 *H 0-500 ng/mL DIAGNOSTICS / RADIOLOGY RESULTS: PATIENT: ESTEBAN MELGAR MR#: [id number] : 1970 SEX: F AGE: 54 LOCATION: [facility] ORDER 5 STATUS: ADM IN REPORT#: [id number] SERVICE 3 REASON: SOB, ORDERING PHYSICIAN: GUNNAR GRIFFIN NP PROCEDURE: CXR1VW - CHEST 1VW CHEST 1VW REASON: SOB, COMPARISON: 09/14/2024 FINDINGS: Heart size is normal. There are mildly increased perihilar interstitial markings, nonspecific, this can be seen with viral pneumonia or interstitial edema. Overall appearance is unchanged given differences in technique. There are no pleural effusions. Mediastinum and bony thorax appear unremarkable. IMPRESSION: 1. Mildly increased perihilar interstitial markings, nonspecific, unchanged. DICTATED BY: AMADOU ACHARYA MD DATE: 09/15/24 1148 ELECTRONICALLY SIGNED BY: AMADOU ACHARYA MD DATE: 09/15/24 1152 PLAN antitussive Robitussin 30 ml every 6 hours for cough Continue with steroids Continue on antibiotic therapy nebulizer treatments as needed monitor vital signs follow up on sputum cultures. NEURO: Minimize central acting medications as possible. Maintain fall precautions, adequate lighting during the day PULMONARY: Supplemental 02 as needed. Maintain aspiration precautions at all times CARDIOVASCULAR: Follow hemodynamics. Vital signs per facility protocol GI & NUTRITION: Continue with nutritional support. Continue stool softeners and laxatives as needed. KIDNEYS & ELECTROLYTES: Strict monitoring of intake, output and overall fluid balance. Avoid nephrotoxic medications to the extent possible. Medications to be dosed according to renal function. Monitor electrolytes and replace as needed ENDOCRINE: Maintain blood glucose between 100-180 at all times. Hypoglycemia protocol in place INFECTIOUS DISEASE: Trend temperature, WBC and procalcitonin level Follow cultures, deescalate antibiotics as soon as possible. Panculture if new onset fever ONCOLOGY/HEMATOLOGY/COAGULATION: Monitor for s/s of bleeding Monitor hemoglobin, coagulation studies as needed SKIN: Pressure ulcer prevention per facility protocol Specialty mattress ORTHO/REHAB: Continue PT/OT Prophylaxis: Continue GI and DVT prophylaxis Code Status: Full Resuscitation Disposition: As per attending. ATTESTATION BY PHYSICIAN I have evaluated the patient chart, medical records, and spoke with appropriate staff. I reviewed the documentation, medical decision making, and treatment plan as noted by the mid-level provider above. I agree with the findings and plan of care. Dajuan Escoto MD,GUNNAR N [facility]YE HAND Sep 15, 2024 14:03
[2024-09-15] MEDS: furoSEMIDE 40MG VIAL IV SCH (14:51)
--- NOTE | 2024-09-15 22:23 | PN ---
INFECTIOUS DISEASE FOLLOWUP NOTE SUBJECTIVE: The patient is seen and examined at bedside today. Has significant shortness of breath, remained on oxygen. Also has some cough. No hemoptysis or pleuritic pain. No bleeding tendency. No rashes, no itchiness. PHYSICAL EXAMINATION: VITAL SIGNS: Temperature 98.9. EYES: No icterus. Pupils equal and reactive. HENT: No oral thrush seen. Moist oral mucosa. NECK: Supple, no JVD or thyromegaly. LUNGS: Crackles bilaterally, no rhonchi. CARDIOVASCULAR: S1, S2, regular. No murmur heard. ABDOMEN: Full, soft, nontender. Bowel sound is present. CENTRAL NERVOUS SYSTEM: Awake, alert, oriented x 3. No focal deficits. SKIN: No rashes, no itchiness. LYMPHATIC: No peripheral lymphadenopathy. BACK: No deformity, no pressure ulcer. HEMATOLOGIC: No bleeding or peripheral lesions seen. ASSESSMENT: A 54-year-old female with multiple problems: * Hypoxic respiratory failure. * Pneumonia. * Sepsis. * Chronic obstructive pulmonary disease exacerbation. * Respiratory failure. PLAN: * Continue ceftriaxone. * Continue doxycycline. * Continue bronchodilator. * Continue Solu-Medrol. * Continue DVT prophylaxis. * Continue oxygen. TID: [id number] RECEIPT: [id number]
--- NOTE | 2024-09-15 23:31 | HMCSR ---
APPROVED REPORT EXAM: Two-dimensional and M-mode echocardiogram with Doppler and color Doppler. INDICATION ICD: Heart Failure 2D Dimensions RVDd3.4 cmLVEF(%)77.0 (>50%)LVED Vol(simp.)143.0 mL IVSd0.6 (0.7-1.1cm)FS(%)46 %LVES Vol(simp.)56.8 mL LVDd4.4 (3.8-5.6cm)LA (2D)3.8 (1.6-4.0cm)LVEF(%, simp.)60 % PWd0.7 (0.7-1.1cm)Ao Root(2D)2.8 (2.0-3.7cm)LA ESV INDEX (4CH)20.80 mL/m2 IVSs1.1 cmLVOT diam2.0 (1.8-2.4cm)LA ESV INDEX (2CH)44.90 mL/m2 LVDs2.4 (2.5-4.0cm)LA ESV INDEX (BP)34.20 mL/m2 PWs1.1 cm M-Mode Dimensions EPSS1.5 cm LA (MM)2.3 (1.6-4.0cm) Ao Root(MM)3.0 (2.0-3.7cm) Aortic Valve AoV VTI0.4 mAo Mean GR10.0 mmHgLVOT VTI0.21 m ROCIO (VMAX)1.6 cm2AVA (VTI) 1.6 cm2 Mitral Valve MV E Wcsa711.7 cm/sDECEL Ajap345 ms MV A Mpcx484.2 cm/sP 1/2 T41 ms E/A ratio1.0MVA (PHT)5.3 cm2 MR Max PG57 mmHg TDI E/E' Cxchax71.8E/E' [id number] Medial E' Peak V9.20 cm/sLateral E' Peak V9.80 cm/s Tricuspid Valve TR Vmax3.1 m/s TR Peak GR38.3 mmHg Left Ventricle The left ventricle is mildly dilated. Septal bounce due to IVCD and bigeminal PVCs. There is normal l eft ventricular wall thickness. LVEF is 55-60%. The left ventricular diastolic function is normal. Right Ventricle The right ventricle is normal size. The right ventricular systolic function is normal. Atria The left atrium size is normal. The right atrium size is normal. Aortic Valve The aortic valve is normal in structure and function. No aortic regurgitation is present. There is no aortic valvular stenosis. Mitral Valve The mitral valve is normal in structure and function. There is no mitral valve regurgitation noted. T here is no mitral valve stenosis. Tricuspid Valve The tricuspid valve is normal in structure and function. There is no tricuspid valve regurgitation no aman. Pulmonic Valve The pulmonary valve is normal in structure and function. There is no pulmonic valvular regurgitation. Great Vessels The aortic root is normal in size. IVC is dilated and collapses >50% with inspiration. Pericardium No pericardial effusion. Conclusion The left ventricle is mildly dilated. There is normal left ventricular wall thickness. Septal bounce due to IVCD and bigeminal PVCs. LVEF is 55-60%. There is no mitral valve regurgitation noted. There is no tricuspid valve regurgitation noted. No pericardial effusion.
[2024-09-16] VITALS (18 sets, daily range): BP systolic 94–154; BP diastolic 42–91; PULSE 54–96; RESP 18–22; TEMP 98–98.2; O2SAT 86–98
[2024-09-16 06:03] LABS: HEMATOCRIT 36.5 % (36-48); MEAN CORPUSCULAR HEMOGLOBIN 31.1 pg (27.0-33.0); MEAN CORPUSCULAR HGB CONC 32.3 g/dL (32.0-36.0); MEAN CORPUSCULAR VOLUME 96.1 fL (79-99); NUCLEATED RED BLOOD CELLS 0.1 % (0.0-0.19); RED BLOOD CELL COUNT(AUTO) 3.8 MIL/uL (4.00-5.50); RED CELL DISTRIBUTION WIDTH 12.1 % (11.0-15.5); WHITE BLOOD COUNT (AUTO) 14.3 K/uL (4.8-10.8)
[2024-09-16 06:22] LABS: CREATININE 0.6 mg/dL (0.5-1.0); POTASSIUM 3.8 mmol/L (3.5-5.1)
[2024-09-16] MEDS: monteLUKAST sodIUM 10 MG TAB PO SCH (09:38)
[2024-09-16] MEDS: PoTASSium chloRIDE 20MEQ ER 20 MEQ ERTAB PO PRN (09:40)
--- NOTE | 2024-09-16 13:00 | NUR ---
Patient is getting out of bed without nurse supervision, bed alarm not functioning on bed she is currently on. Nurse South educated and encouraged patient to remain and utilize call light for help with ambulating and transferring to prevent a fall. Patient is also removing nasal canula when out of bed, wheezing noted during ambulation. Patient states, "I won't fall, I'm fine, I can leave anytime I want.) Nurse Brannon informed patient that it is not recommended to leave considering her respiratory status and the posibilty of respiratory failure. Patient verbalized understanding of information and agreed to stay. Patient currently sitting on bedside chair, comfortable with 2 L nasal canula. Call light and personal items within reach, bed locked in low position, no further needs noted.
--- NOTE | 2024-09-16 15:37 | PN ---
[facility] PROGRESS NOTE Date of Service: Sep 16, 2024 Time of Service: 15:[address] Mobley SUBJECTIVE: [ ] 09/14/24 patient was seen and examined. Case discussed with the RN. She was still short of breath and requiring about3 L of oxygen. CT chest was negative for PE and suggests pneumonia. We will continue broad-spectrum IV antibiotics patient was seen and examined. Case discussed with the RN. She was experiencing respiratory distress this morning and oxygen was turned up to 6 L. with breathing treatment she is doing slightly better and trying to expectorate 09/16 patient was seen by nurse practitioner and physician during rounding in room 432. Per ID patient continues to be on ceftriaxone and doxycycline. Per pulmonology patient continues to be on Solu-Medrol and we will begin to taper it down. Patient was advised to remain 100% abstinence from cocaine use. Patient continues to be on Lasix. Sputum growing Haemophilus influenzae one. Urine culture growing E coli. Repeat urine culture final negative. We will continue to monitor patient. A.m. labs REVIEW OF SYSTEMS CONSTITUTIONAL: Denies fevers, chills, or night sweats. No unintentional weight loss reported. NEUROLOGICAL: Denies headache, amaurosis fugax, motor weakness, sensory deficit, vertigo/spinning sensation, gait abnormalities, or tremors. ENT: No hearing loss, otalgia, otorrhea, rhinitis, rhinorrhea, hoarseness, or sore throat. CARDIOVASCULAR: Denies any exertional angina, dyspnea on exertion, orthopnea, paroxysmal nocturnal dyspnea, palpitations, life-threatening arrhythmias, claudication. PULMONARY: Denies any shortness of breath, cough, phlegm/sputum, hemoptysis, pleuritic chest pain. SLEEP: Denies morning headaches, daytime somnolence or napping. Denies difficulty falling asleep, staying asleep, waking from sleep. Denies knowledge of snoring. GASTROINTESTINAL: Denies any type of dysphagia to either liquids or solids. Denies nausea, vomiting, pyrosis, early satiety, abdominal pain, diarrhea, constipation, or changes in stool consistency or caliber. Denies coffee-ground emesis, hematemesis, hematochezia, or melanotic stools. GENITOURINARY: Denies frequency, urgency, nocturia, hematuria or incontinence (Storage/Irritative symptoms.) Low urinary stream, straining to void, urinary intermittency or hesitancy, splitting of the voiding stream, terminal dribbling. ENDOCRINOLOGIC: Denies polyuria, polydipsia, polyphagia or heat/cold intolerances. HEMATOLOGIC: Denies thrombophilia/previous clots, or coagulopathy/bleeding disorders. ONCOLOGIC: Denies personal history of malignancy. DERMATOLOGIC: Denies rashes or pruritus. PSYCHIATRIC: Denies any suicidal or homicidal ideation. Denies hallucinations. PHYSICAL EXAM GENERAL APPEARANCE: Patient is drowsy, generalized weakness NEUROLOGICAL: Cranial nerves II-XII grossly intact. Motor is 5/5 in bilateral upper and lower extremities proximal to distal. No sensory deficits. HEENT: Face is symmetric. Pupils are equal and reactive. Extraocular movements are intact. NECK: Supple. No JVD. No thyromegaly. No submental, submandibular, pre- /postauricular, occipital or supraclavicular lymphadenopathy. CHEST: Normal chest expansion. No Telemetry. LUNGS: Noted rales, rhonchi, wheezing, and congestion CARDIOVASCULAR: Regular. S1 and S2 normal. No appreciable rubs, murmurs or gallops. ABDOMEN: Soft, nontender, and nondistended. There is no rebound, voluntary guarding, or rigidity. : Deferred. No [place]. EXTREMITIES: Non-edematous and not cyanotic. No clubbing. Good capillary refill. SKIN: No skin breakdown. Vital Signs (last 8hr) Date Time Temp Pulse Resp B/P (MAP) Pulse Ox O2 Delivery O2 Flow Rate FiO2 09/16/24 14:26 83 18 09/16/24 11:15 98.1 87 20 110/68 94 Nasal Cannula 2.0 24 09/16/24 11:01 87 20 N/Cannula Low lpm 2.0 28 09/16/24 10:57 87 18 09/16/24 08:15 94 Nasal Cannula* 2 28 LABS: Laboratory: Test 09/16/24 05:45 09/15/24 10:11 Range/Units White Blood Count 14.3 H 4.8-10.8 K/uL Red Blood Count 3.80 L 4.00-5.50 MIL/uL Hemoglobin 11.8 L 12.0-16.0 g/dL Hematocrit 36.5 36-48 % Mean Corpuscular Volume 96.1 79-99 fL Mean Corpuscular Hemoglobin 31.1 27.0-33.0 pg Mean Corpuscular Hemoglobin Concent 32.3 32.0-36.0 g/dL Red Cell Distribution Width 12.1 11.0-15.5 % Platelet Count 286 # 130-400 K/uL Mean Platelet Volume 12.7 H 7.5-10.5 fL Nucleated Red Blood Cells 0.1 0.0-0.19 % Sodium Level 144 136-145 mmol/L Potassium Level 3.8 3.5-5.1 mmol/L Chloride Level 100 L 101-111 mmol/L Carbon Dioxide Level 39 H 21-32 mmol/L Blood Urea Nitrogen 14 7-18 mg/dL Creatinine 0.6 0.5-1.0 mg/dL Glomerular Filtration Rate Calc 108 >90 mL/min Random Glucose 176 H 70-105 mg/dL Total Calcium 9.2 8.5-10.1 mg/dL Magnesium Level 2.00 1.80-2.40 mg/dL Procalcitonin < 0.05 L 0.05-0.5 ng/mL Blood Gas Specimen Type Arterial Arterial Blood pH 7.437 7.350-7.450 Arterial Blood Partial Pressure CO2 52 H 32-45 mmHg Arterial Blood Partial Pressure O2 61.7 L 83.0-108.0 mmHg Arterial Blood HCO3 34.1 H 21.0-28.0 mmol/L Arterial Blood Oxygen Saturation 92.1 L 94.0-98.0 % Arterial Blood Base Excess 8.2 H -2.0-3.0 mmol/L Blood Gas Temperature 37.0 35.5-37.0 CELSIUS Blood Gas Vent Mode NC ROOM AIR FiO2 32.0 % Blood Gas Specimen Comment GIGI STEEL Current Medications Medications (Trade) Dose Ordered Sig/Korey Route PRN Reason Start Time Stop Time Status Last Admin Dose Admin Acetaminophen (TYLenol 325MG TAB) 650 mg Q4H PRN PO TEMPERATURE GREATER THAN 101.5 09/13/24 08:30 10/13/24 08:29 Acetaminophen (TYLenol 325MG TAB) 650 mg Q6H PRN PO MILD PAIN (1-3) 09/13/24 08:30 10/13/24 08:29 Acetylcysteine (MUComyst 20% 4ML) 600mg = 3ml [id number] IH 09/15/24 12:00 09/17/24 12:00 09/16/24 10:57 800 MG Albuterol (DUOneb) 1 UDVIAL Q4H4 IH 09/15/24 11:00 09/15/24 12:25 DC Albuterol (DUOneb) 1 UDVIAL [id number] 09/15/24 12:30 10/15/24 10:59 09/16/24 14:26 1 UDVIAL Albuterol (DUOneb) 1 UDVIAL [id number] 09/13/24 12:00 09/15/24 10:44 DC 09/15/24 06:35 1 UDVIAL Ceftriaxone Sodium (ROCEphine 1G INJ) 1 gm Q24H IVPB 09/13/24 09:00 09/13/24 20:15 DC 09/13/24 10:30 1 GM Ceftriaxone Sodium (Rocephin 2gm Inj) 2 gm Q24H IVPB 09/14/24 09:00 09/24/24 08:59 09/16/24 09:39 2 GM Chlordiazepoxide HCl (LIBrium 25 MG CAP) 25 mg Q2H PRN PO ALCOHOL WITHDRAWAL PROTOCOL 09/13/24 20:30 09/20/24 20:29 Chlordiazepoxide HCl (LIBrium 25 MG CAP) 50 mg Q1H PRN PO ALCOHOL WITHDRAWAL PROTOCOL 09/13/24 20:30 09/20/24 20:29 Doxycycline Hyclate 250 ml @ 125 mls/hr Q12H IV 09/13/24 09:00 09/23/24 08:59 09/16/24 09:39 125 MLS/HR Enoxaparin Sodium (Lovenox) 30 mg DAILY SQ 09/13/24 09:00 10/13/24 08:59 09/16/24 09:39 30 MG Folic Acid (FOLic ACID 1 MG TABLET) 1 mg DAILY PO 09/14/24 09:00 09/16/24 09:01 DC 09/16/24 09:39 1 MG Furosemide (LASix 40MG VIAL) 40 mg Q12H IV 09/15/24 14:30 10/15/24 14:29 09/16/24 02:40 40 MG Guaifenesin/ Dextromethorphan (RobiTUSSin DM 200/20MG 10ML) 10 ml Q6H PRN PO COUGH 09/14/24 13:00 10/14/24 12:59 09/16/24 09:38 10 ML Ipratropium [place]arshall (AtrovENT UD) 0.5 MG [id number] IH 09/13/24 12:00 09/14/24 02:48 DC Levofloxacin/ Dextrose 50 ml @ 100 mls/hr DAILY IVPB 09/13/24 09:00 09/13/24 09:51 DC Levofloxacin/ Dextrose 100 ml @ 100 mls/hr Q24H IV 09/13/24 07:00 09/13/24 12:50 DC 09/13/24 07:41 100 MLS/HR Lorazepam (AtiVAN) 2 mg Q4H PRN IVP ALCOHOL WITHDRAWAL PROTOCOL 09/13/24 20:30 09/20/24 20:29 Lorazepam (AtiVAN) 4 mg Q2H PRN IVP ALCOHOL WITHDRAWAL PROTOCOL 09/13/24 20:30 09/20/24 20:29 Magnesium Sulfate 50 ml @ 0 mls/hr PROTOCOL PRN IV hypomagnesemia 09/13/24 09:00 09/13/24 09:18 DC Magnesium Sulfate 50 ml @ 0 mls/hr PROTOCOL PRN IV LOW MAGNESIUM 09/13/24 09:30 10/13/24 09:29 Methylprednisolone Sodium Succinate (Solu-medROL 40MG) 40 mg BID IVP 09/13/24 21:00 09/15/24 10:44 DC 09/15/24 08:54 40 MG Methylprednisolone Sodium Succinate (Solu-medROL 40MG) 80 mg Q6H IVP 09/15/24 11:00 10/15/24 10:59 09/16/24 11:35 80 MG Methylprednisolone Sodium Succinate (Solu-medROL 125MG) 125 mg Q6H IVP 09/13/24 09:00 09/13/24 09:17 DC Montelukast Sodium (SinguLAIR) 10 mg DAILY PO 09/16/24 09:00 10/16/24 08:59 09/16/24 09:38 10 MG Multivitamins Therapeutic (Multivitamin Tablet) 1 tab DAILY PO 09/14/24 09:00 10/14/24 08:59 09/16/24 09:38 1 TAB Ondansetron HCl (zoFRAN 4MG INJ) 4 mg Q6H PRN IVP NAUSEA/VOMITING 09/13/24 08:30 10/13/24 08:29 Pharmacy Profile Note (Pharmacy Communication) 1 each PROTOCOL PRN MISC ETOH Withdrawal Score changes 09/13/24 20:30 09/13/24 20:31 DC Potassium Chloride 100 ml @ 100 mls/hr AD PRN IV POTASSIUM PROTOCOL 09/13/24 09:00 09/13/24 09:19 DC Potassium Chloride 100 ml @ 100 mls/hr AD PRN IV POTASSIUM PROTOCOL 09/13/24 09:30 10/13/24 09:29 Potassium Chloride (K-Dur/Klor-Con 20meq) 20 meq AD PRN PO POTASSIUM PROTOCOL 09/13/24 09:00 10/13/24 08:59 09/16/24 11:42 20 MEQ Potassium Chloride (KCl 10% Elixir 20meq/15ml) 20 meq AD PRN PO POTASSIUM PROTOCOL 09/13/24 09:00 10/13/24 08:59 09/13/24 19:01 20 MEQ Promethazine HCl (Phenergan) 25 mg Q6H PRN PO NAUSEA 09/13/24 20:30 10/13/24 20:29 Sodium Chloride 1,000 ml @ 50 mls/hr Q20H IV 09/13/24 09:00 10/13/24 08:59 09/15/24 20:17 50 MLS/HR Thiamine HCl (Vitamin B-1) 100 mg DAILY IM 09/14/24 09:00 09/16/24 09:01 DC 09/16/24 09:38 100 MG DIAGNOSTICS / RADIOLOGY: [ ] ASSESSMENT: [Acute hypoxic respiratory failure, POA Chronic obstructive pulmonary disease exacerbation, POA Urine culture E coli Sputum Haemophilus influenzae I Acute bronchitis, POA Sepsis, POA due to above Severe hypokalemia, POA Elevated BNP, POA Hyperglycemia, POA Urinary tract infection, POA ] PLAN: [Patient will be admitted in PCCU Continue with oxygen supplementation on BiPAP support We will consult shingle sawyer, Dr. Campos for further recommendations Patient will continue with IV antibiotics ceftriaxone and doxycycline Patient will continue with IV steroid with [id number] mg q.6 hours Patient will continue with IV fluids with NS 50 mL/hour We will order drug screen, lipid panel, T4 and T3, TSH, iron panel We will follow up with urine culture and blood culture We will order HIV 1-2 w/reflex GI and DVT ppx We will order labs in am Full code ATTESTATION BY PHYSICIAN I have seen and examined the patient. I reviewed the documentation, medical decision making, and treatment plan as noted by the mid-level provider above. I agree with the findings and plan of care. Aarti Mobley MD, KATARZYNA B [employer] Sep 16, 2024 15:37
--- NOTE | 2024-09-16 16:45 | PN ---
INFECTIOUS DISEASE PROGRESS NOTE Date of Service: Sep 16, 2024 SUBJECTIVE: This is a 54-year-old female patient who was seen and examined at bedside in room 432. Patient is awake, alert and oriented x3. WBC this morning is 14.3, and patient remains afebrile for the past 48 hours with a temperature of 98.1. We will continue on ceftriaxone and doxycycline. Will follow up on the final culture results. No other issues reported by nursing. We will continue to follow patient's care. PHYSICAL EXAM EYES: Anicteric. Pupils equal and reactive. HENT: No oral thrush seen, moist Oral mucosa NECK: Supple, no JVD or thyromegaly. LUNGS: Good air entry. No rales, no rhonchi. CARDIOVASCULAR: S1, S2 regular. No murmur heard. ABDOMEN: Soft, non tender, bowel sounds present, no organomegaly CENTRAL NERVOUS SYSTEM: Awake, alert, oriented x 3. No focal deficits. SKIN: No rashes, no swelling. LYMPHATICS: No peripheral lymphadenopathy MUSCULOSKELETAL: No joint swelling, erythema or tenderness. EXTREMITIES: No cyanosis or clubbing BACK: No deformity, no pressure ulcer. GENITOURINARY: No dysuria or hematuria Vital Sign (Last 12 Hours) 09/16/24 09/16/24 09/16/24 09/16/24 06:16 06:23 06:53 06:54 Pulse 80 80 83 83 85 Resp 18 20 20 20 20 O2 Delivery N/Cannula Low lpm N/A Room Air O2 Flow Rate 3.0 FiO2 32 21 21 09/16/24 09/16/24 09/16/24 09/16/24 07:05 08:15 10:57 11:01 Temp 98.2 Pulse 94 87 87 Resp 20 18 20 B/P (MAP) 112/42 Pulse Ox 94 94 O2 Delivery Nasal Cannula Nasal Cannula* N/Cannula Low lpm O2 Flow Rate 2.0 2 2.0 FiO2 24 28 28 09/16/24 09/16/24 11:15 14:26 Temp 98.1 Pulse 87 83 Resp 20 18 B/P (MAP) 110/68 Pulse Ox 94 O2 Delivery Nasal Cannula O2 Flow Rate 2.0 FiO2 24 Intake & Output (last 24hrs) 09/15/24 09/15/24 09/16/24 14:59 22:59 06:59 Intake Total 500 ml 1200 ml 800 ml Balance 500 ml 1200 ml 800 ml LABS: Laboratory: Test 09/16/24 05:45 09/15/24 10:11 Range/Units White Blood Count 14.3 H 4.8-10.8 K/uL Red Blood Count 3.80 L 4.00-5.50 MIL/uL Hemoglobin 11.8 L 12.0-16.0 g/dL Hematocrit 36.5 36-48 % Mean Corpuscular Volume 96.1 79-99 fL Mean Corpuscular Hemoglobin 31.1 27.0-33.0 pg Mean Corpuscular Hemoglobin Concent 32.3 32.0-36.0 g/dL Red Cell Distribution Width 12.1 11.0-15.5 % Platelet Count 286 # 130-400 K/uL Mean Platelet Volume 12.7 H 7.5-10.5 fL Nucleated Red Blood Cells 0.1 0.0-0.19 % Sodium Level 144 136-145 mmol/L Potassium Level 3.8 3.5-5.1 mmol/L Chloride Level 100 L 101-111 mmol/L Carbon Dioxide Level 39 H 21-32 mmol/L Blood Urea Nitrogen 14 7-18 mg/dL Creatinine 0.6 0.5-1.0 mg/dL Glomerular Filtration Rate Calc 108 >90 mL/min Random Glucose 176 H 70-105 mg/dL Total Calcium 9.2 8.5-10.1 mg/dL Magnesium Level 2.00 1.80-2.40 mg/dL Procalcitonin < 0.05 L 0.05-0.5 ng/mL Blood Gas Specimen Type Arterial Arterial Blood pH 7.437 7.350-7.450 Arterial Blood Partial Pressure CO2 52 H 32-45 mmHg Arterial Blood Partial Pressure O2 61.7 L 83.0-108.0 mmHg Arterial Blood HCO3 34.1 H 21.0-28.0 mmol/L Arterial Blood Oxygen Saturation 92.1 L 94.0-98.0 % Arterial Blood Base Excess 8.2 H -2.0-3.0 mmol/L Blood Gas Temperature 37.0 35.5-37.0 CELSIUS Blood Gas Vent Mode NC ROOM AIR FiO2 32.0 % Blood Gas Specimen Comment GIGI STEEL ASSESSMENT: Hypoxic respiratory failure, requiring oxygen support. Urinary tract infection with E coli. Gram-negative Pneumonia. Leukocytosis. COPD. Substance abuse, cocaine positive. PLAN: Continue ceftriaxone. Continue doxycycline. We will follow up on the cultures and make antibiotics adjustments accordingly. Continue bronchodilators. Continue DVT prophylaxis. We will follow up on the culture. This case was reviewed and discussed with my supervising physician and the above assessment and plan was formulated and agreed upon. ATTESTATION BY PHYSICIAN I have seen and examined the patient. I reviewed the documentation, medical decision making, and treatment plan as noted by the mid-level provider above. I agree with the findings and plan of care. HUGO DIETRICH MD, MIRTA L [facility] Sep 16, 2024 16:45
[2024-09-16 23:08] LABS: MYCOPLASMA AB IGM <770 U/mL (0-769)
[2024-09-17] VITALS (15 sets, daily range): BP systolic 121–147; BP diastolic 56–82; PULSE 50–92; RESP 18–21; TEMP 97.8–98.7; O2SAT 91–96
[2024-09-17 05:20] LABS: BASOPHILS # (AUTO) 0.11 K/uL (0.00-0.20); BASOPHILS % (AUTO) 0.6 % (0.0-5.0); HEMATOCRIT 40.2 % (36-48); IMMATURE GRANULOCYTE ABSOLUTE 0.67 K/uL (0-1); LYMPHOCYTES # (AUTO) 2.2 K/uL (1.0-4.8); LYMPHOCYTES % (AUTO) 12.5 % (21.0-51.0); MEAN CORPUSCULAR HEMOGLOBIN 31.2 pg (27.0-33.0); MEAN CORPUSCULAR HGB CONC 32.3 g/dL (32.0-36.0); MEAN CORPUSCULAR VOLUME 96.4 fL (79-99); MONOCYTES # (AUTO) 0.6 K/uL (0.1-1.0); MONOCYTES % (AUTO) 3.2 % (3.0-13.0); NEUTROPHILS # (AUTO) 13.9 K/uL (1.8-7.7); NEUTROPHILS % (AUTO) 79.9 % (40.0-77.0); PLATELET COUNT (AUTO) 324 K/uL (130-400); RED BLOOD CELL COUNT(AUTO) 4.17 MIL/uL (4.00-5.50); RED CELL DISTRIBUTION WIDTH 12.2 % (11.0-15.5); WHITE BLOOD COUNT (AUTO) 17.5 K/uL (4.8-10.8)
[2024-09-17 05:34] LABS: ALBUMIN 2.9 g/dL (3.5-5.0); BILIRUBIN,TOTAL 0.4 mg/dL (0.2-1.0); CREATININE 0.8 mg/dL (0.5-1.0); MAGNESIUM 1.8 mg/dL (1.80-2.40); POTASSIUM 3.5 mmol/L (3.5-5.1); TOTAL PROTEIN, SERUM 7.5 g/dL (6.0-8.3)
--- NOTE | 2024-09-17 12:45 | NUR ---
gave antibiotics late due to patient stating several times she was going to leave AMA. after a few hours. she agreed for me to give her the antibiotics.
--- NOTE | 2024-09-17 14:48 | PN ---
INFECTIOUS DISEASE PROGRESS NOTE Date of Service: Sep 17, 2024 SUBJECTIVE: This is a 54-year-old female patient who was seen and examined at bedside in room 432. Patient is awake, alert and oriented x3. The WBC still slightly elevated at 17.5, patient however continues on Solu-Medrol IV. No fever reported this morning, temperature is 98.2. The final sputum culture results came back positive for Haemophilus influenza 1. We will continue on ceftriaxone and doxycycline. We will continue to follow patient's care. PHYSICAL EXAM EYES: Anicteric. Pupils equal and reactive. HENT: No oral thrush seen, moist Oral mucosa NECK: Supple, no JVD or thyromegaly. LUNGS: Good air entry. No rales, no rhonchi. CARDIOVASCULAR: S1, S2 regular. No murmur heard. ABDOMEN: Soft, non tender, bowel sounds present, no organomegaly CENTRAL NERVOUS SYSTEM: Awake, alert, oriented x 3. No focal deficits. SKIN: No rashes, no swelling. LYMPHATICS: No peripheral lymphadenopathy MUSCULOSKELETAL: No joint swelling, erythema or tenderness. EXTREMITIES: No cyanosis or clubbing BACK: No deformity, no pressure ulcer. GENITOURINARY: No dysuria or hematuria Vital Sign (Last 12 Hours) 09/17/24 09/17/24 09/17/24 09/17/24 05:04 06:09 06:12 07:15 Temp 97.9 98.1 Pulse 69 84 84 50 Resp 21 18 18 20 B/P (MAP) 141/82 147/56 Pulse Ox 93 96 O2 Delivery Nasal Cannula N/A Room Air Room Air O2 Flow Rate 2.0 FiO2 09/17/24 09/17/24 09/17/24 09/17/24 08:00 10:19 10:22 11:10 Temp 98.2 Pulse 82 82 88 Resp 18 18 20 B/P (MAP) 124/70 Pulse Ox 96 95 O2 Delivery Room Air* N/A Room Air Room Air O2 Flow Rate 0 FiO2 09/17/24 14:24 Pulse 85 Resp 18 Intake & Output (last 24hrs) 09/16/24 09/16/24 09/17/24 15:00 23:00 07:00 Intake Total 300.0 ml 875 ml 1120.0 ml Balance 300.0 ml 875 ml 1120.0 ml LABS: Laboratory: Test 09/17/24 04:44 09/16/24 05:45 Range/Units White Blood Count 17.5 H 4.8-10.8 K/uL Red Blood Count 4.17 4.00-5.50 MIL/uL Hemoglobin 13.0 12.0-16.0 g/dL Hematocrit 40.2 36-48 % Mean Corpuscular Volume 96.4 79-99 fL Mean Corpuscular Hemoglobin 31.2 27.0-33.0 pg Mean Corpuscular Hemoglobin Concent 32.3 32.0-36.0 g/dL Red Cell Distribution Width 12.2 11.0-15.5 % Platelet Count 324 130-400 K/uL Mean Platelet Volume 12.6 H 7.5-10.5 fL Immature Granulocyte % (Auto) 3.8 H 0-1 % Neutrophils (%) (Auto) 79.9 H 40.0-77.0 % Lymphocytes (%) (Auto) 12.5 L 21.0-51.0 % Monocytes (%) (Auto) 3.2 3.0-13.0 % Eosinophils (%) (Auto) 0.0 0.0-8.0 % Basophils (%) (Auto) 0.6 0.0-5.0 % Neutrophils # (Auto) 13.9 H 1.8-7.7 K/uL Lymphocytes # (Auto) 2.2 1.0-4.8 K/uL Monocytes # (Auto) 0.6 0.1-1.0 K/uL Eosinophils # (Auto) 0.00 0.00-0.70 K/uL Basophils # (Auto) 0.11 0.00-0.20 K/uL Absolute Immature Granulocyte (auto 0.67 0-1 K/uL Nucleated Red Blood Cells 0.0 0.0-0.19 % Sodium Level 141 136-145 mmol/L Potassium Level 3.5 3.5-5.1 mmol/L Chloride Level 99 L 101-111 mmol/L Carbon Dioxide Level 36 H 21-32 mmol/L Blood Urea Nitrogen 26 H 7-18 mg/dL Creatinine 0.8 0.5-1.0 mg/dL Glomerular Filtration Rate Calc 89 >90 mL/min Random Glucose 189 H 70-105 mg/dL Total Calcium 9.2 8.5-10.1 mg/dL Magnesium Level 1.80 1.80-2.40 mg/dL Total Bilirubin 0.4 0.2-1.0 mg/dL Aspartate Amino Transf (AST/SGOT) 20 10-37 U/L Alanine Aminotransferase (ALT/SGPT) 44 12-78 U/L Alkaline Phosphatase 93 50-136 U/L Total Protein 7.5 6.0-8.3 g/dL Albumin 2.9 L 3.5-5.0 g/dL Procalcitonin < 0.05 L 0.05-0.5 ng/mL ASSESSMENT: Hypoxic respiratory failure, requiring oxygen support. Urinary tract infection with E coli. Gram-negative Pneumonia. Leukocytosis. COPD. Substance abuse, cocaine positive. PLAN: Continue ceftriaxone. Continue doxycycline. Continue bronchodilators. Continue DVT prophylaxis. We will monitor electrolytes. This case was reviewed and discussed with my supervising physician and the above assessment and plan was formulated and agreed upon. ATTESTATION BY PHYSICIAN I have seen and examined the patient. I reviewed the documentation, medical decision making, and treatment plan as noted by the mid-level provider above. I agree with the findings and plan of care. HUGO DIETRICH MD, MIRTA [facility] Sep 17, 2024 14:48
--- NOTE | 2024-09-17 15:16 | NUR ---
I RECEIVED REPORT FROM JULES YU AT 1445 AND WILL BE TAKING OVER CARE FOR THE REMAINDER OF THE SHIFT.
--- NOTE | 2024-09-17 16:30 | NUR ---
CM NOTE: O2 CM INFORMED DR JUSTICE RESIDENT PT IS NON-FUNDED AND UNABLE TO PAY FOR O2, PT IS ALSO HOMELESS BUT AGREEABLE TO DC W/FRIEND NOREEN QUINTERO. PT WILL NEED TO HAVE O2 WEAN ED OFF AND RE-EVALUATE O2 AGAIN ONCE PT STABLE. AGREEABLE W/POC, WILL KEEP PT TODAY, AND EVALUATE O2 6 MIN WALK TO [place]. PRIMARY NURSE JULES MADE AWARE. CM TO CONTINUE TO FOLLOW UP.
--- NOTE | 2024-09-17 19:00 | PN ---
[facility] PROGRESS NOTE Date of Service: Sep 17, 2024 Time of Service: 18:52 SUBJECTIVE: [ ] 09/14/24 patient was seen and examined. Case discussed with the RN. She was still short of breath and requiring about3 L of oxygen. CT chest was negative for PE and suggests pneumonia. We will continue broad-spectrum IV antibiotics patient was seen and examined. Case discussed with the RN. She was experiencing respiratory distress this morning and oxygen was turned up to 6 L. with breathing treatment she is doing slightly better and trying to expectorate 09/16 patient was seen by nurse practitioner and physician during rounding in room 432. Per ID patient continues to be on ceftriaxone and doxycycline. Per pulmonology patient continues to be on Solu-Medrol and we will begin to taper it down. Patient was advised to remain 100% abstinence from cocaine use. Patient continues to be on Lasix. Sputum growing Haemophilus influenzae one. Urine culture growing E coli. Repeat urine culture final negative. We will continue to monitor patient. A.m. labs 09/17/2024 the patient was seen this morning at the bedside and was oriented to person, place, and time. Vital signs are stable. Laboratory results from today show an increase in WBCs from 14.3 to 17.5, hemoglobin has rising from 11.8 to 13, and platelet have increasing from 286 to 324. Electrolytes remained within normal ranges, and creatinine is 0.8, compared to 0.6 yesterday. The patient continues treatment with doxycycline and ceftriaxone. Culture results were positive for Haemophilus influenzae, mycoplasma pneumonia. Yesterday the patient underwent a 6 minutes walk test without oxygen but did not pass, necessary continue hospitalization. Today, case management was consulted to explore the possibility to discharging the patient with home oxygen. However, due to the patient's lack of insurance, she can not acquire the oxygen equipment and will remain hospitalized for another day. The patient will be re-evaluated tomorrow to determine if she can pass the 6 minutes walk test without oxygen. If successful, she will be discharged with oral antibiotics REVIEW OF SYSTEMS CONSTITUTIONAL: Denies fevers, chills, or night sweats. No unintentional weight loss reported. NEUROLOGICAL: Denies headache, amaurosis fugax, motor weakness, sensory deficit, vertigo/spinning sensation, gait abnormalities, or tremors. ENT: No hearing loss, otalgia, otorrhea, rhinitis, rhinorrhea, hoarseness, or sore throat. CARDIOVASCULAR: Denies any exertional angina, dyspnea on exertion, orthopnea, paroxysmal nocturnal dyspnea, palpitations, life-threatening arrhythmias, claudication. PULMONARY: Denies any shortness of breath, cough, phlegm/sputum, hemoptysis, pleuritic chest pain. SLEEP: Denies morning headaches, daytime somnolence or napping. Denies difficulty falling asleep, staying asleep, waking from sleep. Denies knowledge of snoring. GASTROINTESTINAL: Denies any type of dysphagia to either liquids or solids. Denies nausea, vomiting, pyrosis, early satiety, abdominal pain, diarrhea, constipation, or changes in stool consistency or caliber. Denies coffee-ground emesis, hematemesis, hematochezia, or melanotic stools. GENITOURINARY: Denies frequency, urgency, nocturia, hematuria or incontinence (Storage/Irritative symptoms.) Low urinary stream, straining to void, urinary intermittency or hesitancy, splitting of the voiding stream, terminal dribbling. ENDOCRINOLOGIC: Denies polyuria, polydipsia, polyphagia or heat/cold intolerances. HEMATOLOGIC: Denies thrombophilia/previous clots, or coagulopathy/bleeding disorders. ONCOLOGIC: Denies personal history of malignancy. DERMATOLOGIC: Denies rashes or pruritus. PSYCHIATRIC: Denies any suicidal or homicidal ideation. Denies hallucinations. PHYSICAL EXAM GENERAL APPEARANCE: Patient is drowsy, generalized weakness NEUROLOGICAL: Cranial nerves II-XII grossly intact. Motor is 5/5 in bilateral upper and lower extremities proximal to distal. No sensory deficits. HEENT: Face is symmetric. Pupils are equal and reactive. Extraocular movements are intact. NECK: Supple. No JVD. No thyromegaly. No submental, submandibular, pre- /postauricular, occipital or supraclavicular lymphadenopathy. CHEST: Normal chest expansion. No Telemetry. LUNGS: Noted rales, rhonchi, wheezing, and congestion CARDIOVASCULAR: Regular. S1 and S2 normal. No appreciable rubs, murmurs or gallops. ABDOMEN: Soft, nontender, and nondistended. There is no rebound, voluntary guarding, or rigidity. : Deferred. No [place]. EXTREMITIES: Non-edematous and not cyanotic. No clubbing. Good capillary refill. SKIN: No skin breakdown. Vital Signs (last 8hr) Date Time Temp Pulse Resp B/P (MAP) Pulse Ox O2 Delivery O2 Flow Rate FiO2 09/17/24 15:10 98.8 61 20 121/68 94 Room Air 21 09/17/24 14:24 85 18 09/17/24 11:10 98.2 88 20 124/70 95 Room Air 21 LABS: Laboratory: Test 09/17/24 04:44 09/16/24 05:45 Range/Units White Blood Count 17.5 H 4.8-10.8 K/uL Red Blood Count 4.17 4.00-5.50 MIL/uL Hemoglobin 13.0 12.0-16.0 g/dL Hematocrit 40.2 36-48 % Mean Corpuscular Volume 96.4 79-99 fL Mean Corpuscular Hemoglobin 31.2 27.0-33.0 pg Mean Corpuscular Hemoglobin Concent 32.3 32.0-36.0 g/dL Red Cell Distribution Width 12.2 11.0-15.5 % Platelet Count 324 130-400 K/uL Mean Platelet Volume 12.6 H 7.5-10.5 fL Immature Granulocyte % (Auto) 3.8 H 0-1 % Neutrophils (%) (Auto) 79.9 H 40.0-77.0 % Lymphocytes (%) (Auto) 12.5 L 21.0-51.0 % Monocytes (%) (Auto) 3.2 3.0-13.0 % Eosinophils (%) (Auto) 0.0 0.0-8.0 % Basophils (%) (Auto) 0.6 0.0-5.0 % Neutrophils # (Auto) 13.9 H 1.8-7.7 K/uL Lymphocytes # (Auto) 2.2 1.0-4.8 K/uL Monocytes # (Auto) 0.6 0.1-1.0 K/uL Eosinophils # (Auto) 0.00 0.00-0.70 K/uL Basophils # (Auto) 0.11 0.00-0.20 K/uL Absolute Immature Granulocyte (auto 0.67 0-1 K/uL Nucleated Red Blood Cells 0.0 0.0-0.19 % Sodium Level 141 136-145 mmol/L Potassium Level 3.5 3.5-5.1 mmol/L Chloride Level 99 L 101-111 mmol/L Carbon Dioxide Level 36 H 21-32 mmol/L Blood Urea Nitrogen 26 H 7-18 mg/dL Creatinine 0.8 0.5-1.0 mg/dL Glomerular Filtration Rate Calc 89 >90 mL/min Random Glucose 189 H 70-105 mg/dL Total Calcium 9.2 8.5-10.1 mg/dL Magnesium Level 1.80 1.80-2.40 mg/dL Total Bilirubin 0.4 0.2-1.0 mg/dL Aspartate Amino Transf (AST/SGOT) 20 10-37 U/L Alanine Aminotransferase (ALT/SGPT) 44 12-78 U/L Alkaline Phosphatase 93 50-136 U/L Total Protein 7.5 6.0-8.3 g/dL Albumin 2.9 L 3.5-5.0 g/dL Procalcitonin < 0.05 L 0.05-0.5 ng/mL Current Medications Medications (Trade) Dose Ordered Sig/Korey Route PRN Reason Start Time Stop Time Status Last Admin Dose Admin Acetaminophen (TYLenol 325MG TAB) 650 mg Q4H PRN PO TEMPERATURE GREATER THAN 101.5 09/13/24 08:30 10/13/24 08:29 Acetaminophen (TYLenol 325MG TAB) 650 mg Q6H PRN PO MILD PAIN (1-3) 09/13/24 08:30 10/13/24 08:29 Acetylcysteine (MUComyst 20% 4ML) 600mg = 3ml [id number] 09/15/24 12:00 09/17/24 12:00 GA 09/17/24 10:18 800 MG Albuterol (DUOneb) 1 UDVIAL Q4H4 09/15/24 11:00 09/15/24 12:25 DC Albuterol (DUOneb) 1 UDVIAL [id number] 09/15/24 12:30 10/15/24 10:59 09/17/24 14:24 1 UDVIAL Albuterol (DUOneb) 1 UDVIAL [id number] 09/13/24 12:00 09/15/24 10:44 DC 09/15/24 06:35 1 UDVIAL Ceftriaxone Sodium (ROCEphine 1G INJ) 1 gm Q24H IVPB 09/13/24 09:00 09/13/24 20:15 DC 09/13/24 10:30 1 GM Ceftriaxone Sodium (Rocephin 2gm Inj) 2 gm Q24H IVPB 09/14/24 09:00 09/24/24 08:59 09/16/24 09:39 2 GM Chlordiazepoxide HCl (LIBrium 25 MG CAP) 25 mg Q2H PRN PO ALCOHOL WITHDRAWAL PROTOCOL 09/13/24 20:30 09/20/24 20:29 Chlordiazepoxide HCl (LIBrium 25 MG CAP) 50 mg Q1H PRN PO ALCOHOL WITHDRAWAL PROTOCOL 09/13/24 20:30 09/20/24 20:29 Doxycycline Hyclate 250 ml @ 125 mls/hr Q12H IV 09/13/24 09:00 09/17/24 12:48 DC 09/16/24 21:19 125 MLS/HR Enoxaparin Sodium (Lovenox) 30 mg DAILY SQ 09/13/24 09:00 10/13/24 08:59 09/16/24 09:39 30 MG Folic Acid (FOLic ACID 1 MG TABLET) 1 mg DAILY PO 09/14/24 09:00 09/16/24 09:01 DC 09/16/24 09:39 1 MG Furosemide (LASix 40MG VIAL) 40 mg Q12H IV 09/15/24 14:30 10/15/24 14:29 09/17/24 15:49 40 MG Guaifenesin/ Dextromethorphan (RobiTUSSin DM 200/20MG 10ML) 10 ml Q6H PRN PO COUGH 09/14/24 13:00 10/14/24 12:59 09/17/24 17:27 10 ML Ipratropium Carroll (AtrovENT UD) 0.5 MG [id number] IH 09/13/24 12:00 09/14/24 02:48 DC Levofloxacin/ Dextrose 50 ml @ 100 mls/hr DAILY IVPB 09/13/24 09:00 09/13/24 09:51 DC Levofloxacin/ Dextrose 100 ml @ 100 mls/hr Q24H IV 09/13/24 07:00 09/13/24 12:50 DC 09/13/24 07:41 100 MLS/HR Lorazepam (AtiVAN) 2 mg Q4H PRN IVP ALCOHOL WITHDRAWAL PROTOCOL 09/13/24 20:30 09/20/24 20:29 Lorazepam (AtiVAN) 4 mg Q2H PRN IVP ALCOHOL WITHDRAWAL PROTOCOL 09/13/24 20:30 09/20/24 20:29 Magnesium Sulfate 50 ml @ 0 mls/hr PROTOCOL PRN IV hypomagnesemia 09/13/24 09:00 09/13/24 09:18 DC Magnesium Sulfate 50 ml @ 0 mls/hr PROTOCOL PRN IV LOW MAGNESIUM 09/13/24 09:30 10/13/24 09:29 Methylprednisolone Sodium Succinate (Solu-medROL 40MG) 40 mg BID IVP 09/13/24 21:00 09/15/24 10:44 DC 09/15/24 08:54 40 MG Methylprednisolone Sodium Succinate (Solu-medROL 40MG) 80 mg Q6H IVP 09/15/24 11:00 10/15/24 10:59 09/17/24 17:11 80 MG Methylprednisolone Sodium Succinate (Solu-medROL 125MG) 125 mg Q6H IVP 09/13/24 09:00 09/13/24 09:17 DC Montelukast Sodium (SinguLAIR) 10 mg DAILY PO 09/16/24 09:00 10/16/24 08:59 09/17/24 09:16 10 MG Multivitamins Therapeutic (Multivitamin Tablet) 1 tab DAILY PO 09/14/24 09:00 10/14/24 08:59 09/17/24 09:16 1 TAB Ondansetron HCl (zoFRAN 4MG INJ) 4 mg Q6H PRN IVP NAUSEA/VOMITING 09/13/24 08:30 10/13/24 08:29 Pharmacy Profile Note (Pharmacy Communication) 1 each PROTOCOL PRN MISC ETOH Withdrawal Score changes 09/13/24 20:30 09/13/24 20:31 DC Potassium Chloride 100 ml @ 100 mls/hr AD PRN IV POTASSIUM PROTOCOL 09/13/24 09:00 09/13/24 09:19 DC Potassium Chloride 100 ml @ 100 mls/hr AD PRN IV POTASSIUM PROTOCOL 09/13/24 09:30 10/13/24 09:29 Potassium Chloride (K-Dur/Klor-Con 20meq) 20 meq AD PRN PO POTASSIUM PROTOCOL 09/13/24 09:00 10/13/24 08:59 09/17/24 09:18 20 MEQ Potassium Chloride (KCl 10% Elixir 20meq/15ml) 20 meq AD PRN PO POTASSIUM PROTOCOL 09/13/24 09:00 10/13/24 08:59 09/13/24 19:01 20 MEQ Promethazine HCl (Phenergan) 25 mg Q6H PRN PO NAUSEA 09/13/24 20:30 10/13/24 20:29 Sodium Chloride 1,000 ml @ 50 mls/hr Q20H IV 09/13/24 09:00 09/17/24 15:56 DC 09/17/24 13:07 50 MLS/HR Thiamine HCl (Vitamin B-1) 100 mg DAILY IM 09/14/24 09:00 09/16/24 09:01 DC 09/16/24 09:38 100 MG DIAGNOSTICS / RADIOLOGY: [ ] ASSESSMENT: [Acute hypoxic respiratory failure, POA Chronic obstructive pulmonary disease exacerbation, POA Urine culture E coli Sputum Haemophilus influenzae I Acute bronchitis, POA Sepsis, POA due to above Severe hypokalemia, POA Elevated BNP, POA Hyperglycemia, POA Urinary tract infection, POA ] PLAN: [Patient will be admitted in PCCU Continue with oxygen supplementation on BiPAP support We will consult travel agent, Dr. Campos for further recommendations Patient will continue with IV antibiotics ceftriaxone and doxycycline Patient will continue with IV steroid with [id number] mg q.6 hours Patient will continue with IV fluids with NS 50 mL/hour We will order drug screen, lipid panel, T4 and T3, TSH, iron panel We will follow up with urine culture and blood culture We will order HIV 1-2 w/reflex GI and DVT ppx We will order labs in am Full code ATTESTATION BY PHYSICIAN I have seen and examined the patient. I reviewed the documentation, medical decision making, and treatment plan as noted by the resident provider above. I agree with the findings and plan of care. Angelo Mobley MD, GERARDO MD Sep 17, 2024 19:00
--- NOTE | 2024-09-17 20:42 | PN ---
[facility] PROGRESS NOTE Date Patient Seen: Sep 17, 2024 Time of Visit: 20:36 Supervising Physician: BERTHA CHAMPAGNE MD Primary Care Physician: self referral Outpatient Specialists:none Inpatient Consults: Brandon Tse MD Attending : Dr Homar Kumar MD PROBLEM LIST: Acute toxic metabolic encephalopathy, POA Acute hypoxemic respiratory failure, POA Acute on chronic COPD exacerbation, POA Leukocytosis, POA Normocytic anemia, POA Compensated respiratory acidosis, POA Hyperglycemia, POA Electrolyte derangement with (hypokalemia, hypocalcemia), POA Drug abuse +for cocaine, POA Current smoker, current ETOH use Overweight Plan Summary: Supplemental oxygen as needed Duo nebs every 4 hours Mucomyst 20%/ 3mL every 8 hours times48 hours Lasix 40 mg IV every 12 hours x4 doses Continue Rocephin Continue doxycycline Obtain sputum culture Montelukast 10 mg daily Solu-Medrol 80 mg IV every 6 hours times 24 hours and taper down to 40 every 8 hours in a.m. Patient had been advised to remain 100% abstinence from cocaine use This is a 64-year-old female with a history of "Bronchitis", COPD, who presented to emergency department via EMS after being found in an alley lethargic and with shortness of breath. She was admitted under [facility] team for acute hypoxic respiratory failure and we are consulted for shortness of breath by primary team. On behalf of [facility] thank you for given us the opportunity to participate in the care of this patient. On arrival to the emergency department patient had a fever of 101.1 heart rate 107 respiratory rate of 34 with a blood pressure of 132/73 with a oximetry of 78% at room air. Laboratory showed white count of 11.2 H&H 11.4/34.7 and a platelet count that was normal neutrophils were 82. Chemistries showed potassium of 3.2 carbon dioxide of 34 glucose 195 mg/dL iron of 31 TIBC 239% saturation 12.9 ammonia level 17 procalcitonin 0.23. On UDS patient is positive for cocaine. Urinalysis showed: cloudy appearance urine protein 200, glucose 50 ketones five occult blood small bilirubin 0.5 urobilinogen 12 RBCs 6-10 WBCs 6-10. HIV antibody nonreactive. Influenza type a and B negative. SARS COVID-19 negative. And rapid strep negative. Chest x-ray with no acute pulmonary infiltrates. 09/14 - patient seen and examined awake, alert, well oriented, she remains on 3L of oxygen via NC since admission unable to wean off complaining of significant cough and congestion for which she will be place on antitussive, will continue with antibiotic therapy follow up on sputum cultures. 09/15 - patient is seen and evaluated at the bedside. Patient sitting in bed with worsening respiratory failure. Patient with scattered rhonchi and wheezing bilaterally. Patient reports she is unable to breathe at this time. Ordered a stat chest x-ray and ABGs and currently pending. Recommend Lasix 40 mg IV every 12 hours x4 doses, continue IV antibiotics. Obtain a sputum culture. High-dose steroids for24 hours and begin a taper down. Patient has been advised to remain 100% abstinence from cocaine use. We will continue to follow up with you. 09/17 Patient seen and examined at the bedside, awake, alert, well oriented, doing much better, on room air plan is to discontinue antibiotic therapy and prescription for inhalers will be given, Pro air 2 puffs daily PRN for SOB and spiriva 1 cap inh daily #13 from our stand point of view clear to be discharge REVIEW OF SYSTEMS: 12 point ROS reviewed with patient. Pertinent positives mentioned above. Otherwise negative. PHYSICAL EXAM: GENERAL: awake, on room air HEENT: EOMI, Sclera non icteric, moist mucosa NECK: Supple, no JVD, trachea midline LUNGS: Clear breath sounds bilaterally. crackles, decreased breath sounds HEART: Regular rate and rhythm. Normal S1 and S2, without murmurs ABD: Abdomen soft, nontender. Bowel sounds present EXT: No clubbing cyanosis or edema NEURO: lethargic, no focal weakness Vital Signs (last 8hr) Date Time Temp Pulse Resp B/P (MAP) Pulse Ox O2 Delivery O2 Flow Rate FiO2 09/17/24 19:15 70 19 N/A Room Air 09/17/24 19:15 70 18 09/17/24 15:10 98.8 61 20 121/68 94 Room Air 21 09/17/24 14:24 85 18 LABS: Hematology Labs: Test 09/17/24 04:44 Range/Units White Blood Count 17.5 H 4.8-10.8 K/uL Red Blood Count 4.17 4.00-5.50 MIL/uL Hemoglobin 13.0 12.0-16.0 g/dL Hematocrit 40.2 36-48 % Mean Corpuscular Volume 96.4 79-99 fL Mean Corpuscular Hemoglobin 31.2 27.0-33.0 pg Mean Corpuscular Hemoglobin Concent 32.3 32.0-36.0 g/dL Red Cell Distribution Width 12.2 11.0-15.5 % Platelet Count 324 130-400 K/uL Mean Platelet Volume 12.6 H 7.5-10.5 fL Immature Granulocyte % (Auto) 3.8 H 0-1 % Neutrophils (%) (Auto) 79.9 H 40.0-77.0 % Lymphocytes (%) (Auto) 12.5 L 21.0-51.0 % Monocytes (%) (Auto) 3.2 3.0-13.0 % Eosinophils (%) (Auto) 0.0 0.0-8.0 % Basophils (%) (Auto) 0.6 0.0-5.0 % Neutrophils # (Auto) 13.9 H 1.8-7.7 K/uL Lymphocytes # (Auto) 2.2 1.0-4.8 K/uL Monocytes # (Auto) 0.6 0.1-1.0 K/uL Eosinophils # (Auto) 0.00 0.00-0.70 K/uL Basophils # (Auto) 0.11 0.00-0.20 K/uL Absolute Immature Granulocyte (auto 0.67 0-1 K/uL Nucleated Red Blood Cells 0.0 0.0-0.19 % Chemistry Labs: Test 09/17/24 04:44 09/16/24 05:45 Range/Units Sodium Level 141 136-145 mmol/L Potassium Level 3.5 3.5-5.1 mmol/L Chloride Level 99 L 101-111 mmol/L Carbon Dioxide Level 36 H 21-32 mmol/L Blood Urea Nitrogen 26 H 7-18 mg/dL Creatinine 0.8 0.5-1.0 mg/dL Glomerular Filtration Rate Calc 89 >90 mL/min Random Glucose 189 H 70-105 mg/dL Total Calcium 9.2 8.5-10.1 mg/dL Magnesium Level 1.80 1.80-2.40 mg/dL Total Bilirubin 0.4 0.2-1.0 mg/dL Aspartate Amino Transf (AST/SGOT) 20 10-37 U/L Alanine Aminotransferase (ALT/SGPT) 44 12-78 U/L Alkaline Phosphatase 93 50-136 U/L Total Protein 7.5 6.0-8.3 g/dL Albumin 2.9 L 3.5-5.0 g/dL Procalcitonin < 0.05 L 0.05-0.5 ng/mL DIAGNOSTICS / RADIOLOGY RESULTS: [ ] PLAN Spiriva 1 cap inh daily #13 Proair 2 puff inh prn SOB NEURO: Minimize central acting medications as possible. Maintain fall precautions, adequate lighting during the day PULMONARY: Supplemental 02 as needed. Maintain aspiration precautions at all times CARDIOVASCULAR: Follow hemodynamics. Vital signs per facility protocol GI & NUTRITION: Continue with nutritional support. Continue stool softeners and laxatives as needed. KIDNEYS & ELECTROLYTES: Strict monitoring of intake, output and overall fluid balance. Avoid nephrotoxic medications to the extent possible. Medications to be dosed according to renal function. Monitor electrolytes and replace as needed ENDOCRINE: Maintain blood glucose between 100-180 at all times. Hypoglycemia protocol in place INFECTIOUS DISEASE: Trend temperature, WBC and procalcitonin level Follow cultures, deescalate antibiotics as soon as possible. Panculture if new onset fever ONCOLOGY/HEMATOLOGY/COAGULATION: Monitor for s/s of bleeding Monitor hemoglobin, coagulation studies as needed SKIN: Pressure ulcer prevention per facility protocol Specialty mattress ORTHO/REHAB: Continue PT/OT Prophylaxis: Continue GI and DVT prophylaxis Code Status: Full Resuscitation Disposition: As per attending. ATTESTATION BY PHYSICIAN Documentation assistance provided by a scribe, information recorded by the scrib e was done at my direction and has been reviewed and validated by me." IHSAN STONE MD I personally scribed for IHSAN STONE MD ([email or web address]) on 09/17/24 at 20:42. Electronically submitted by Susanna Guzman ([email or web address]). IHSAN STONE MD Sep 17, 2024 20:42
[2024-09-18] VITALS (16 sets, daily range): BP systolic 107–124; BP diastolic 49–79; PULSE 68–88; RESP 18–20; TEMP 97.9–98.7; O2SAT 93–96
[2024-09-18 05:40] LABS: HEMATOCRIT 40.3 % (36-48); MEAN CORPUSCULAR HEMOGLOBIN 31.3 pg (27.0-33.0); MEAN CORPUSCULAR HGB CONC 32.5 g/dL (32.0-36.0); MEAN CORPUSCULAR VOLUME 96.4 fL (79-99); RED BLOOD CELL COUNT(AUTO) 4.18 MIL/uL (4.00-5.50); RED CELL DISTRIBUTION WIDTH 12.5 % (11.0-15.5); WHITE BLOOD COUNT (AUTO) 16.4 K/uL (4.8-10.8)
[2024-09-18 06:03] LABS: ALBUMIN 2.8 g/dL (3.5-5.0); BILIRUBIN,TOTAL 0.4 mg/dL (0.2-1.0); CREATININE 0.8 mg/dL (0.5-1.0); MAGNESIUM 1.8 mg/dL (1.80-2.40); PHOSPHORUS 4.3 mg/dL (2.5-4.9); POTASSIUM 3.9 mmol/L (3.5-5.1)
--- NOTE | 2024-09-18 06:05 | NUR ---
Placed call to Hospitalist answering service regarding pt.'s critical lab value; stated Kallie Morrison is on-call and would be paged.
--- NOTE | 2024-09-18 07:30 | NUR ---
Dr. Carlos Briscoe making his daily rounds, wanting to inform on pt.,stated is pt.'s primary pcp, made aware of Lactic Acid results of 2.5; no new orders received.
[2024-09-18] MEDS ORDERED: 0.9% NACL 500ML IV.SOLN 500 ML IV ONE (10:00)
[2024-09-18] MEDS: 0.9%NACL 1000ML 1,000 ML IV ONE (10:15)
[2024-09-18] MEDS: ceFEPime HCL 1 GM VIAL IVPB SCH (11:00)
[2024-09-18] MEDS: 0.9%NACL 1000ML 1,000 ML IV SCH (13:28)
[2024-09-18] MEDS: [UNRECOGNIZED DRUG - OTHER] IV ONE (13:28)
--- NOTE | 2024-09-18 14:56 | PN ---
[facility] PROGRESS NOTE Date Patient Seen: Sep 18, 2024 Time of Visit: 14:50 Supervising Physician: IHSAN STONE MD Primary Care Physician: self referral Outpatient Specialists:none Inpatient Consults: Brandon Tse MD Attending : Dr Homar Kumar MD PROBLEM LIST: Acute lactic acidosis not present on admission Acute toxic metabolic encephalopathy on admission, now resolved Acute hypoxemic respiratory failure on admission, now resolved Acute on chronic COPD exacerbation on admission, now resolved Iron deficiency anemia Cocaine use disorder, positive on admission Alcohol use disorder Tobacco use disorder Obesity, BMI 28.9 INTERVAL HISTORY Patient is 54 years old and she appears older than her chronological age She was scheduled to be discharged yesterday however, her lactic acid level was greater than 4 Her discharge was held Currently, afebrile, well hydrated. No distress Overnight, she was started on IV hydration. She is alert, oriented x 4 and wants to go home No fevers, no chills, good appetite REVIEW OF SYSTEMS: 12 point ROS reviewed with patient. Pertinent positives mentioned above. Otherwise negative. PHYSICAL EXAM: GENERAL: awake, on room air HEENT: EOMI, Sclera non icteric, moist mucosa NECK: Supple, no JVD, trachea midline LUNGS: Clear breath sounds bilaterally. crackles, decreased breath sounds HEART: Regular rate and rhythm. Normal S1 and S2, without murmurs ABD: Abdomen soft, nontender. Bowel sounds present EXT: No clubbing cyanosis or edema NEURO: lethargic, no focal weakness Vital Signs (last 8hr) Date Time Temp Pulse Resp B/P (MAP) Pulse Ox O2 Delivery O2 Flow Rate FiO2 09/18/24 13:49 80 20 09/18/24 12:00 09/18/24 11:27 94 Room Air* 0 21 09/18/24 10:39 83 20 09/18/24 08:00 98.4 88 18 107/68 92 Room Air 21 LABS: Hematology Labs: Test 09/18/24 05:11 09/17/24 04:44 Range/Units White Blood Count 16.4 H 4.8-10.8 K/uL Red Blood Count 4.18 4.00-5.50 MIL/uL Hemoglobin 13.1 12.0-16.0 g/dL Hematocrit 40.3 36-48 % Mean Corpuscular Volume 96.4 79-99 fL Mean Corpuscular Hemoglobin 31.3 27.0-33.0 pg Mean Corpuscular Hemoglobin Concent 32.5 32.0-36.0 g/dL Red Cell Distribution Width 12.5 11.0-15.5 % Platelet Count 338 130-400 K/uL Mean Platelet Volume 12.5 H 7.5-10.5 fL Nucleated Red Blood Cells 0.0 0.0-0.19 % Immature Granulocyte % (Auto) 3.8 H 0-1 % Neutrophils (%) (Auto) 79.9 H 40.0-77.0 % Lymphocytes (%) (Auto) 12.5 L 21.0-51.0 % Monocytes (%) (Auto) 3.2 3.0-13.0 % Eosinophils (%) (Auto) 0.0 0.0-8.0 % Basophils (%) (Auto) 0.6 0.0-5.0 % Neutrophils # (Auto) 13.9 H 1.8-7.7 K/uL Lymphocytes # (Auto) 2.2 1.0-4.8 K/uL Monocytes # (Auto) 0.6 0.1-1.0 K/uL Eosinophils # (Auto) 0.00 0.00-0.70 K/uL Basophils # (Auto) 0.11 0.00-0.20 K/uL Absolute Immature Granulocyte (auto 0.67 0-1 K/uL Chemistry Labs: Test 09/18/24 14:06 09/18/24 05:11 Range/Units Lactic Acid Level 3.3 H 0.8-2.5 mmol/L Sodium Level 139 136-145 mmol/L Potassium Level 3.9 3.5-5.1 mmol/L Chloride Level 98 L 101-111 mmol/L Carbon Dioxide Level 36 H 21-32 mmol/L Blood Urea Nitrogen 30 H 7-18 mg/dL Creatinine 0.8 0.5-1.0 mg/dL Glomerular Filtration Rate Calc 89 >90 mL/min Random Glucose 223 H 70-105 mg/dL Total Calcium 9.1 8.5-10.1 mg/dL Phosphorus Level 4.3 2.5-4.9 mg/dL Magnesium Level 1.80 1.80-2.40 mg/dL Total Bilirubin 0.4 0.2-1.0 mg/dL Aspartate Amino Transf (AST/SGOT) 15 10-37 U/L Alanine Aminotransferase (ALT/SGPT) 39 12-78 U/L Alkaline Phosphatase 82 50-136 U/L Ammonia 11 11-32 umol/L Total Protein 7.0 6.0-8.3 g/dL Albumin 2.8 L 3.5-5.0 g/dL DIAGNOSTICS / RADIOLOGY RESULTS: [ None today ] PLAN Follow up with laboratory results today May discharge home if Lactic acid level is back to baseline Resume home medications as per reconciled list Disposition as per primary ATTESTATION BY PHYSICIAN Note scribed by Vinay Diana, forensic medical examiner. I can attest to the accuracy of the note. IHSAN STONE MD I personally scribed for IHSAN STONE MD ([email or web address]) on 09/18/24 at 14:56. Electronically submitted by Vinay Diana ([email or web address]). IHSAN STONE MD Sep 18, 2024 14:56
--- NOTE | 2024-09-18 14:58 | PN ---
[facility] PROGRESS NOTE Date of Service: Sep 18, 2024 Time of Service: 14:57 SUBJECTIVE: [ ] 09/14/24 patient was seen and examined. Case discussed with the RN. She was still short of breath and requiring about3 L of oxygen. CT chest was negative for PE and suggests pneumonia. We will continue broad-spectrum IV antibiotics patient was seen and examined. Case discussed with the RN. She was experiencing respiratory distress this morning and oxygen was turned up to 6 L. with breathing treatment she is doing slightly better and trying to expectorate 09/16 patient was seen by nurse practitioner and physician during rounding in room 432. Per ID patient continues to be on ceftriaxone and doxycycline. Per pulmonology patient continues to be on Solu-Medrol and we will begin to taper it down. Patient was advised to remain 100% abstinence from cocaine use. Patient continues to be on Lasix. Sputum growing Haemophilus influenzae one. Urine culture growing E coli. Repeat urine culture final negative. We will continue to monitor patient. A.m. labs 09/17/2024 the patient was seen this morning at the bedside and was oriented to person, place, and time. Vital signs are stable. Laboratory results from today show an increase in WBCs from 14.3 to 17.5, hemoglobin has rising from 11.8 to 13, and platelet have increasing from 286 to 324. Electrolytes remained within normal ranges, and creatinine is 0.8, compared to 0.6 yesterday. The patient continues treatment with doxycycline and ceftriaxone. Culture results were positive for Haemophilus influenzae, mycoplasma pneumonia. Yesterday the patient underwent a 6 minutes walk test without oxygen but did not pass, necessary continue hospitalization. Today, case management was consulted to explore the possibility to discharging the patient with home oxygen. However, due to the patient's lack of insurance, she can not acquire the oxygen equipment and will remain hospitalized for another day. The patient will be re-evaluated tomorrow to determine if she can pass the 6 minutes walk test without oxygen. If successful, she will be discharged with oral antibiotics 09/18/2024 the patient was seen this morning at the bedside and appears much improved. Her vital signs are stable with a blood pressure of 107/68 mmHg. Yesterday, a lactic acid levels was ordered, which resulted this morning at 2.5. A bolus of 1 L of normal saline was admitted over 1 hour. A repeat lactic acid level few hours later showed increased to 4.6. Consequently, patient was started on fluids due to elevated lactic acid levels, and the patient was started on cefepime. Other laboratory results were within relatively normal ranges. The patient will remain under observation to the, and a repeat lactic acid level will be obtained tomorrow morning. If the levels returned to normal, discharge will be considered. REVIEW OF SYSTEMS CONSTITUTIONAL: Denies fevers, chills, or night sweats. No unintentional weight loss reported. NEUROLOGICAL: Denies headache, amaurosis fugax, motor weakness, sensory deficit, vertigo/spinning sensation, gait abnormalities, or tremors. ENT: No hearing loss, otalgia, otorrhea, rhinitis, rhinorrhea, hoarseness, or sore throat. CARDIOVASCULAR: Denies any exertional angina, dyspnea on exertion, orthopnea, paroxysmal nocturnal dyspnea, palpitations, life-threatening arrhythmias, claudication. PULMONARY: Denies any shortness of breath, cough, phlegm/sputum, hemoptysis, pleuritic chest pain. SLEEP: Denies morning headaches, daytime somnolence or napping. Denies difficulty falling asleep, staying asleep, waking from sleep. Denies knowledge of snoring. GASTROINTESTINAL: Denies any type of dysphagia to either liquids or solids. Denies nausea, vomiting, pyrosis, early satiety, abdominal pain, diarrhea, constipation, or changes in stool consistency or caliber. Denies coffee-ground emesis, hematemesis, hematochezia, or melanotic stools. GENITOURINARY: Denies frequency, urgency, nocturia, hematuria or incontinence (Storage/Irritative symptoms.) Low urinary stream, straining to void, urinary intermittency or hesitancy, splitting of the voiding stream, terminal dribbling. ENDOCRINOLOGIC: Denies polyuria, polydipsia, polyphagia or heat/cold intolerances. HEMATOLOGIC: Denies thrombophilia/previous clots, or coagulopathy/bleeding disorders. ONCOLOGIC: Denies personal history of malignancy. DERMATOLOGIC: Denies rashes or pruritus. PSYCHIATRIC: Denies any suicidal or homicidal ideation. Denies hallucinations. PHYSICAL EXAM GENERAL APPEARANCE: Patient is drowsy, generalized weakness NEUROLOGICAL: Cranial nerves II-XII grossly intact. Motor is 5/5 in bilateral upper and lower extremities proximal to distal. No sensory deficits. HEENT: Face is symmetric. Pupils are equal and reactive. Extraocular movements are intact. NECK: Supple. No JVD. No thyromegaly. No submental, submandibular, pre- /postauricular, occipital or supraclavicular lymphadenopathy. CHEST: Normal chest expansion. No Telemetry. LUNGS: Noted rales, rhonchi, wheezing, and congestion CARDIOVASCULAR: Regular. S1 and S2 normal. No appreciable rubs, murmurs or gallops. ABDOMEN: Soft, nontender, and nondistended. There is no rebound, voluntary guarding, or rigidity. : Deferred. No [place]. EXTREMITIES: Non-edematous and not cyanotic. No clubbing. Good capillary refill. SKIN: No skin breakdown. Vital Signs (last 8hr) Date Time Temp Pulse Resp B/P (MAP) Pulse Ox O2 Delivery O2 Flow Rate FiO2 09/18/24 13:49 80 20 09/18/24 12:00 09/18/24 11:27 94 Room Air* 0 21 09/18/24 10:39 83 20 09/18/24 08:00 98.4 88 18 107/68 92 Room Air 21 LABS: Laboratory: Test 09/18/24 14:06 09/18/24 05:11 09/17/24 04:44 Range/Units Lactic Acid Level 3.3 H 0.8-2.5 mmol/L White Blood Count 16.4 H 4.8-10.8 K/uL Red Blood Count 4.18 4.00-5.50 MIL/uL Hemoglobin 13.1 12.0-16.0 g/dL Hematocrit 40.3 36-48 % Mean Corpuscular Volume 96.4 79-99 fL Mean Corpuscular Hemoglobin 31.3 27.0-33.0 pg Mean Corpuscular Hemoglobin Concent 32.5 32.0-36.0 g/dL Red Cell Distribution Width 12.5 11.0-15.5 % Platelet Count 338 130-400 K/uL Mean Platelet Volume 12.5 H 7.5-10.5 fL Nucleated Red Blood Cells 0.0 0.0-0.19 % Sodium Level 139 136-145 mmol/L Potassium Level 3.9 3.5-5.1 mmol/L Chloride Level 98 L 101-111 mmol/L Carbon Dioxide Level 36 H 21-32 mmol/L Blood Urea Nitrogen 30 H 7-18 mg/dL Creatinine 0.8 0.5-1.0 mg/dL Glomerular Filtration Rate Calc 89 >90 mL/min Random Glucose 223 H 70-105 mg/dL Total Calcium 9.1 8.5-10.1 mg/dL Phosphorus Level 4.3 2.5-4.9 mg/dL Magnesium Level 1.80 1.80-2.40 mg/dL Total Bilirubin 0.4 0.2-1.0 mg/dL Aspartate Amino Transf (AST/SGOT) 15 10-37 U/L Alanine Aminotransferase (ALT/SGPT) 39 12-78 U/L Alkaline Phosphatase 82 50-136 U/L Ammonia 11 11-32 umol/L Total Protein 7.0 6.0-8.3 g/dL Albumin 2.8 L 3.5-5.0 g/dL Immature Granulocyte % (Auto) 3.8 H 0-1 % Neutrophils (%) (Auto) 79.9 H 40.0-77.0 % Lymphocytes (%) (Auto) 12.5 L 21.0-51.0 % Monocytes (%) (Auto) 3.2 3.0-13.0 % Eosinophils (%) (Auto) 0.0 0.0-8.0 % Basophils (%) (Auto) 0.6 0.0-5.0 % Neutrophils # (Auto) 13.9 H 1.8-7.7 K/uL Lymphocytes # (Auto) 2.2 1.0-4.8 K/uL Monocytes # (Auto) 0.6 0.1-1.0 K/uL Eosinophils # (Auto) 0.00 0.00-0.70 K/uL Basophils # (Auto) 0.11 0.00-0.20 K/uL Absolute Immature Granulocyte (auto 0.67 0-1 K/uL Current Medications Medications (Trade) Dose Ordered Sig/[place] Route PRN Reason Start Time Stop Time Status Last Admin Dose Admin Acetaminophen (TYLenol 325MG TAB) 650 mg Q4H PRN PO TEMPERATURE GREATER THAN 101.5 09/13/24 08:30 10/13/24 08:29 Acetaminophen (TYLenol 325MG TAB) 650 mg Q6H PRN PO MILD PAIN (1-3) 09/13/24 08:30 10/13/24 08:29 Acetylcysteine (MUComyst 20% 4ML) 600mg = 3ml [id number] IH 09/15/24 12:00 09/17/24 12:00 DC 09/17/24 10:18 800 MG Albuterol (DUOneb) 1 UDVIAL Q4H4 IH 09/15/24 11:00 09/15/24 12:25 DC Albuterol (DUOneb) 1 UDVIAL [id number] 09/15/24 12:30 10/15/24 10:59 09/18/24 13:49 1 UDVIAL Albuterol (DUOneb) 1 UDVIAL [id number] 09/13/24 12:00 09/15/24 10:44 DC 09/15/24 06:35 1 UDVIAL Cefepime HCl (MAXipime 1 GM vial) 1 gm Q8H IVPB 09/18/24 11:00 09/28/24 10:59 Ceftriaxone Sodium (ROCEphine 1G INJ) 1 gm Q24H IVPB 09/13/24 09:00 09/13/24 20:15 DC 09/13/24 10:30 1 GM Ceftriaxone Sodium (Rocephin 2gm Inj) 2 gm Q24H IVPB 09/14/24 09:00 09/18/24 11:01 NV 09/18/24 08:23 2 GM Chlordiazepoxide HCl (LIBrium 25 MG CAP) 25 mg Q2H PRN PO ALCOHOL WITHDRAWAL PROTOCOL 09/13/24 20:30 09/20/24 20:29 Chlordiazepoxide HCl (LIBrium 25 MG CAP) 50 mg Q1H PRN PO ALCOHOL WITHDRAWAL PROTOCOL 09/13/24 20:30 09/20/24 20:29 Doxycycline Hyclate 250 ml @ 125 mls/hr Q12H IV 09/13/24 09:00 09/17/24 12:48 DC 09/16/24 21:19 125 MLS/HR Enoxaparin Sodium (Lovenox) 30 mg DAILY SQ 09/13/24 09:00 10/13/24 08:59 09/18/24 08:52 30 MG Folic Acid (FOLic ACID 1 MG TABLET) 1 mg DAILY PO 09/14/24 09:00 09/16/24 09:01 DC 09/16/24 09:39 1 MG Furosemide (LASix 40MG VIAL) 40 mg Q12H IV 09/15/24 14:30 09/18/24 09:27 DC 09/18/24 02:46 40 MG Guaifenesin/ Dextromethorphan (RobiTUSSin DM 200/20MG 10ML) 10 ml Q6H PRN PO COUGH 09/14/24 13:00 10/14/24 12:59 09/17/24 17:27 10 ML Ipratropium [place] (AtrovENT UD) 0.5 MG [id number] IH 09/13/24 12:00 09/14/24 02:48 DC Levofloxacin/ Dextrose 50 ml @ 100 mls/hr DAILY IVPB 09/13/24 09:00 09/13/24 09:51 DC Levofloxacin/ Dextrose 100 ml @ 100 mls/hr Q24H IV 09/13/24 07:00 09/13/24 12:50 DC 09/13/24 07:41 100 MLS/HR Lorazepam (AtiVAN) 2 mg Q4H PRN IVP ALCOHOL WITHDRAWAL PROTOCOL 09/13/24 20:30 09/20/24 20:29 Lorazepam (AtiVAN) 4 mg Q2H PRN IVP ALCOHOL WITHDRAWAL PROTOCOL 09/13/24 20:30 09/20/24 20:29 Magnesium Sulfate 50 ml @ 0 mls/hr PROTOCOL PRN IV hypomagnesemia 09/13/24 09:00 09/13/24 09:18 DC Magnesium Sulfate 50 ml @ 0 mls/hr PROTOCOL PRN IV LOW MAGNESIUM 09/13/24 09:30 10/13/24 09:29 Methylprednisolone Sodium Succinate (Solu-medROL 40MG) 40 mg BID IVP 09/13/24 21:00 09/15/24 10:44 DC 09/15/24 08:54 40 MG Methylprednisolone Sodium Succinate (Solu-medROL 40MG) 80 mg Q6H IVP 09/15/24 11:00 10/15/24 10:59 09/18/24 12:33 80 MG Methylprednisolone Sodium Succinate (Solu-medROL 125MG) 125 mg Q6H IVP 09/13/24 09:00 09/13/24 09:17 DC Montelukast Sodium (SinguLAIR) 10 mg DAILY PO 09/16/24 09:00 10/16/24 08:59 09/18/24 08:52 10 MG Multivitamins Therapeutic (Multivitamin Tablet) 1 tab DAILY PO 09/14/24 09:00 10/14/24 08:59 09/18/24 08:52 1 TAB Ondansetron HCl (zoFRAN 4MG INJ) 4 mg Q6H PRN IVP NAUSEA/VOMITING 09/13/24 08:30 10/13/24 08:29 Pharmacy Profile Note (Pharmacy Communication) 1 each PROTOCOL PRN MISC ETOH Withdrawal Score changes 09/13/24 20:30 09/13/24 20:31 DC Potassium Chloride 100 ml @ 100 mls/hr AD PRN IV POTASSIUM PROTOCOL 09/13/24 09:00 09/13/24 09:19 DC Potassium Chloride 100 ml @ 100 mls/hr AD PRN IV POTASSIUM PROTOCOL 09/13/24 09:30 10/13/24 09:29 Potassium Chloride (K-Dur/Klor-Con 20meq) 20 meq AD PRN PO POTASSIUM PROTOCOL 09/13/24 09:00 10/13/24 08:59 09/17/24 09:18 20 MEQ Potassium Chloride (KCl 10% Elixir 20meq/15ml) 20 meq AD PRN PO POTASSIUM PROTOCOL 09/13/24 09:00 10/13/24 08:59 09/13/24 19:01 20 MEQ Promethazine HCl (Phenergan) 25 mg Q6H PRN PO NAUSEA 09/13/24 20:30 10/13/24 20:29 Sodium Chloride 1,000 ml @ 50 mls/hr Q20H IV 09/13/24 09:00 09/17/24 15:56 DC 09/17/24 13:07 50 MLS/HR Sodium Chloride 1,000 ml @ 100 mls/hr Q10H IV 09/18/24 11:00 10/18/24 10:59 09/18/24 13:28 100 MLS/HR Thiamine HCl (Vitamin B-1) 100 mg DAILY IM 09/14/24 09:00 09/16/24 09:01 DC 09/16/24 09:38 100 MG DIAGNOSTICS / RADIOLOGY: [ ] ASSESSMENT: [Acute hypoxic respiratory failure, POA Chronic obstructive pulmonary disease exacerbation, POA Urine culture E coli Sputum Haemophilus influenzae I Acute bronchitis, POA Sepsis, POA due to above Severe hypokalemia, POA Elevated BNP, POA Hyperglycemia, POA Urinary tract infection, POA ] PLAN: Patient in Med surge Continue to follow recommendations per pulmonology Patient is started on cefepime. Patient will continue with IV steroid with [id number] mg q.6 hours Patient started on fluids for hydration Pending results for Blood culture Lactic acid levels for tomorrow morning GI and DVT ppx We will order labs in am ATTESTATION BY PHYSICIAN I have seen and examined the patient. I reviewed the documentation, medical decision making, and treatment plan as noted by the resident provider above. I agree with the findings and plan of care. Angelo Mobley MD, GERARDO MD Sep 18, 2024 14:58
--- NOTE | 2024-09-18 23:20 | PN ---
INFECTIOUS DISEASE PROGRESS NOTE Date of Service: Sep 18, 2024 SUBJECTIVE: This is a 54-year-old female patient who was seen and examined at bedside in room 432. Patient is awake, alert and oriented x3. WBC slowly trended down and is 16.4 this morning and per report time of visit this morning patient will be given IV fluids bolus for an elevated lactic acid level. No fever, temperature is 98.4. Continues on ceftriaxone and doxycycline. We will continue to follow patient's care. PHYSICAL EXAM EYES: Anicteric. Pupils equal and reactive. HENT: No oral thrush seen, moist Oral mucosa NECK: Supple, no JVD or thyromegaly. LUNGS: Good air entry. No rales, no rhonchi. CARDIOVASCULAR: S1, S2 regular. No murmur heard. ABDOMEN: Soft, non tender, bowel sounds present, no organomegaly CENTRAL NERVOUS SYSTEM: Awake, alert, oriented x 3. SKIN: No rashes, no swelling. LYMPHATICS: No peripheral lymphadenopathy MUSCULOSKELETAL: No joint swelling, erythema or tenderness. EXTREMITIES: No cyanosis or clubbing BACK: No deformity, no pressure ulcer. GENITOURINARY: No dysuria or hematuria. Vital Sign (Last 12 Hours) 09/18/24 09/18/24 09/18/24 09/18/24 11:27 12:00 13:49 16:00 Temp 98.6 Pulse 80 72 Resp 20 18 B/P (MAP) 113/55 Pulse Ox 94 93 O2 Delivery Room Air* Room Air O2 Flow Rate 0 FiO2 21 09/18/24 09/18/24 09/18/24 09/18/24 16:42 18:50 19:10 20:43 Temp 98.1 Pulse 79 76 Resp 18 20 B/P (MAP) 121/51 Pulse Ox 94 96 96 O2 Delivery Room Air* Room Air Room Air* O2 Flow Rate 0 0 FiO2 21 09/18/24 09/18/24 22:41 23:11 Temp 98.1 Pulse 84 70 Resp 18 19 B/P (MAP) 117/79 Pulse Ox 96 O2 Delivery Room Air Intake & Output (last 24hrs) 09/17/24 09/17/24 09/18/24 15:00 23:00 07:00 Intake Total 1320 ml 600.0 ml Balance 1320 ml 600.0 ml LABS: Laboratory: Test 09/18/24 18:35 09/18/24 05:11 09/17/24 04:44 Range/Units Lactic Acid Level 2.5 0.8-2.5 mmol/L White Blood Count 16.4 H 4.8-10.8 K/uL Red Blood Count 4.18 4.00-5.50 MIL/uL Hemoglobin 13.1 12.0-16.0 g/dL Hematocrit 40.3 36-48 % Mean Corpuscular Volume 96.4 79-99 fL Mean Corpuscular Hemoglobin 31.3 27.0-33.0 pg Mean Corpuscular Hemoglobin Concent 32.5 32.0-36.0 g/dL Red Cell Distribution Width 12.5 11.0-15.5 % Platelet Count 338 130-400 K/uL Mean Platelet Volume 12.5 H 7.5-10.5 fL Nucleated Red Blood Cells 0.0 0.0-0.19 % Sodium Level 139 136-145 mmol/L Potassium Level 3.9 3.5-5.1 mmol/L Chloride Level 98 L 101-111 mmol/L Carbon Dioxide Level 36 H 21-32 mmol/L Blood Urea Nitrogen 30 H 7-18 mg/dL Creatinine 0.8 0.5-1.0 mg/dL Glomerular Filtration Rate Calc 89 >90 mL/min Random Glucose 223 H 70-105 mg/dL Total Calcium 9.1 8.5-10.1 mg/dL Phosphorus Level 4.3 2.5-4.9 mg/dL Magnesium Level 1.80 1.80-2.40 mg/dL Total Bilirubin 0.4 0.2-1.0 mg/dL Aspartate Amino Transf (AST/SGOT) 15 10-37 U/L Alanine Aminotransferase (ALT/SGPT) 39 12-78 U/L Alkaline Phosphatase 82 50-136 U/L Ammonia 11 11-32 umol/L Total Protein 7.0 6.0-8.3 g/dL Albumin 2.8 L 3.5-5.0 g/dL Immature Granulocyte % (Auto) 3.8 H 0-1 % Neutrophils (%) (Auto) 79.9 H 40.0-77.0 % Lymphocytes (%) (Auto) 12.5 L 21.0-51.0 % Monocytes (%) (Auto) 3.2 3.0-13.0 % Eosinophils (%) (Auto) 0.0 0.0-8.0 % Basophils (%) (Auto) 0.6 0.0-5.0 % Neutrophils # (Auto) 13.9 H 1.8-7.7 K/uL Lymphocytes # (Auto) 2.2 1.0-4.8 K/uL Monocytes # (Auto) 0.6 0.1-1.0 K/uL Eosinophils # (Auto) 0.00 0.00-0.70 K/uL Basophils # (Auto) 0.11 0.00-0.20 K/uL Absolute Immature Granulocyte (auto 0.67 0-1 K/uL ASSESSMENT: Hypoxic respiratory failure, requiring oxygen support. Urinary tract infection with E coli. Gram-negative Pneumonia. Leukocytosis. COPD. Substance abuse, cocaine positive. PLAN: Continue ceftriaxone. Continue doxycycline. Continue bronchodilators. Continue DVT prophylaxis. We will monitor electrolytes. This case was reviewed and discussed with my supervising physician and the above assessment and plan was formulated and agreed upon. ATTESTATION BY PHYSICIAN I have seen and examined the patient. I reviewed the documentation, medical decision making, and treatment plan as noted by the mid-level provider above. I agree with the findings and plan of care. HUGO DIETRICH MD, MIRTA L [facility] Sep 18, 2024 23:20
[2024-09-19] VITALS (9 sets, daily range): BP systolic 119–125; BP diastolic 45–67; PULSE 51–85; RESP 17–18; TEMP 97.9–98.2; O2SAT 94–96
[2024-09-19 05:59] LABS: HEMATOCRIT 35.4 % (36-48); MEAN CORPUSCULAR HEMOGLOBIN 31.2 pg (27.0-33.0); MEAN CORPUSCULAR HGB CONC 31.9 g/dL (32.0-36.0); MEAN CORPUSCULAR VOLUME 97.8 fL (79-99); RED BLOOD CELL COUNT(AUTO) 3.62 MIL/uL (4.00-5.50); WHITE BLOOD COUNT (AUTO) 15.7 K/uL (4.8-10.8)
[2024-09-19 06:27] LABS: ALBUMIN 2.5 g/dL (3.5-5.0); BILIRUBIN,TOTAL 0.4 mg/dL (0.2-1.0); CREATININE 0.8 mg/dL (0.5-1.0); MAGNESIUM 1.9 mg/dL (1.80-2.40); PHOSPHORUS 3.6 mg/dL (2.5-4.9); POTASSIUM 4.7 mmol/L (3.5-5.1); TOTAL PROTEIN, SERUM 5.8 g/dL (6.0-8.3)
--- NOTE | 2024-09-19 13:55 | PN ---
INFECTIOUS DISEASE PROGRESS NOTE Date of Service: Sep 19, 2024 SUBJECTIVE: This is a 54-year-old female patient who was seen and examined at bedside in room 432. Patient is awake, alert and oriented x3. patient was up ambulating in hallways without difficulty. No fever reported this morning, temperature is 97.9 and the WBC is 15.7. Continues on ceftriaxone and doxycycline. We will continue to follow patient's care. PHYSICAL EXAM EYES: Anicteric. Pupils equal and reactive. HENT: No oral thrush seen, moist Oral mucosa NECK: Supple, no JVD or thyromegaly. LUNGS: Good air entry. No rales, no rhonchi. CARDIOVASCULAR: S1, S2 regular. No murmur heard. ABDOMEN: Soft, non tender, bowel sounds present, no organomegaly CENTRAL NERVOUS SYSTEM: Awake, alert, oriented x 3. SKIN: No rashes, no swelling. LYMPHATICS: No peripheral lymphadenopathy MUSCULOSKELETAL: No joint swelling, erythema or tenderness. EXTREMITIES: No cyanosis or clubbing BACK: No deformity, no pressure ulcer. GENITOURINARY: No dysuria or hematuria. Vital Sign (Last 12 Hours) 09/19/24 09/19/24 09/19/24 09/19/24 03:24 06:41 08:02 10:55 Temp 97.9 97.9 Pulse 71 77 85 58 Resp 17 18 18 18 B/P (MAP) 122/66 119/67 Pulse Ox 96 92 O2 Delivery Room Air Room Air FiO2 21 09/19/24 09/19/24 10:57 11:30 Temp 98.2 Pulse 58 51 Resp 18 18 B/P (MAP) 125/45 Pulse Ox 95 O2 Delivery N/A Room Air Room Air FiO2 21 21 Intake & Output (last 24hrs) 09/18/24 09/18/24 09/19/24 15:00 23:00 07:00 Intake Total 120 ml Balance 120 ml LABS: Laboratory: Test 09/19/24 05:18 09/18/24 05:11 Range/Units White Blood Count 15.7 H 4.8-10.8 K/uL Red Blood Count 3.62 L 4.00-5.50 MIL/uL Hemoglobin 11.3 L 12.0-16.0 g/dL Hematocrit 35.4 L 36-48 % Mean Corpuscular Volume 97.8 79-99 fL Mean Corpuscular Hemoglobin 31.2 27.0-33.0 pg Mean Corpuscular Hemoglobin Concent 31.9 L 32.0-36.0 g/dL Red Cell Distribution Width 13.0 11.0-15.5 % Platelet Count 302 130-400 K/uL Mean Platelet Volume 12.7 H 7.5-10.5 fL Nucleated Red Blood Cells 0.0 0.0-0.19 % Sodium Level 142 136-145 mmol/L Potassium Level 4.7 3.5-5.1 mmol/L Chloride Level 106 101-111 mmol/L Carbon Dioxide Level 31 21-32 mmol/L Blood Urea Nitrogen 26 H 7-18 mg/dL Creatinine 0.8 0.5-1.0 mg/dL Glomerular Filtration Rate Calc 89 >90 mL/min Random Glucose 214 H 70-105 mg/dL Lactic Acid Level 2.5 0.8-2.5 mmol/L Total Calcium 8.3 L 8.5-10.1 mg/dL Phosphorus Level 3.6 2.5-4.9 mg/dL Magnesium Level 1.90 1.80-2.40 mg/dL Total Bilirubin 0.4 0.2-1.0 mg/dL Aspartate Amino Transf (AST/SGOT) 13 10-37 U/L Alanine Aminotransferase (ALT/SGPT) 26 12-78 U/L Alkaline Phosphatase 67 50-136 U/L Total Protein 5.8 L 6.0-8.3 g/dL Albumin 2.5 L 3.5-5.0 g/dL Ammonia 11 11-32 umol/L ASSESSMENT: Hypoxic respiratory failure, requiring oxygen support. Urinary tract infection with E coli. Gram-negative Pneumonia. Leukocytosis. COPD. Substance abuse, cocaine positive. PLAN: Continue ceftriaxone. Continue doxycycline. Continue bronchodilators. Continue DVT prophylaxis. We will monitor electrolytes. This case was reviewed and discussed with my supervising physician and the above assessment and plan was formulated and agreed upon. ATTESTATION BY PHYSICIAN I have seen and examined the patient. I reviewed the documentation, medical decision making, and treatment plan as noted by the mid-level provider above. I agree with the findings and plan of care. HUGO DIETRICH MD, MIRTA L [facility] Sep 19, 2024 13:55
[2024-09-19] MEDS ORDERED: AZIT500T4 PO (14:04)
[2024-09-19] MEDS ORDERED: LEVO750T40 PO (14:04)
[2024-09-19] MEDS ORDERED: PANT40TA54 PO (14:04)
--- NOTE | 2024-09-19 14:50 | PN ---
[facility] PROGRESS NOTE Date Patient Seen: Sep 19, 2024 Time of Visit: 14:48 Supervising Physician: IHSAN STONE MD Primary Care Physician: self referral Outpatient Specialists:none Inpatient Consults: Brandon Tse MD Attending : Dr Homar Kumar MD PROBLEM LIST: Acute lactic acidosis not present on admission, improved Acute toxic metabolic encephalopathy on admission, now resolved Acute hypoxemic respiratory failure on admission, now resolved Acute on chronic COPD exacerbation on admission, now resolved Iron deficiency anemia Cocaine use disorder, positive on admission Alcohol use disorder Tobacco use disorder Obesity, BMI 28.9 INTERVAL HISTORY Patient seen and evaluated She is awake, on room air, well hydrated and does not appear to be in distress Tolerating oral intake, good appetite, no constipation Up around and ambulatory without assistance No cough, no congestion No fevers REVIEW OF SYSTEMS: 12 point ROS reviewed with patient. Pertinent positives mentioned above. Otherwise negative. PHYSICAL EXAM: GENERAL: awake, on room air HEENT: EOMI, Sclera non icteric, moist mucosa NECK: Supple, no JVD, trachea midline LUNGS: Clear breath sounds bilaterally. crackles, decreased breath sounds HEART: Regular rate and rhythm. Normal S1 and S2, without murmurs ABD: Abdomen soft, nontender. Bowel sounds present EXT: No clubbing cyanosis or edema NEURO: lethargic, no focal weakness Vital Signs (last 8hr) Date Time Temp Pulse Resp B/P (MAP) Pulse Ox O2 Delivery O2 Flow Rate FiO2 09/19/24 14:33 60 18 09/19/24 14:25 96 Room Air* 0 21 09/19/24 11:30 98.2 51 18 125/45 95 Room Air 21 09/19/24 10:57 58 18 N/A Room Air 21 09/19/24 10:55 58 18 09/19/24 08:02 97.9 85 18 119/67 92 Room Air 21 LABS: Hematology Labs: Test 09/19/24 05:18 Range/Units White Blood Count 15.7 H 4.8-10.8 K/uL Red Blood Count 3.62 L 4.00-5.50 MIL/uL Hemoglobin 11.3 L 12.0-16.0 g/dL Hematocrit 35.4 L 36-48 % Mean Corpuscular Volume 97.8 79-99 fL Mean Corpuscular Hemoglobin 31.2 27.0-33.0 pg Mean Corpuscular Hemoglobin Concent 31.9 L 32.0-36.0 g/dL Red Cell Distribution Width 13.0 11.0-15.5 % Platelet Count 302 130-400 K/uL Mean Platelet Volume 12.7 H 7.5-10.5 fL Nucleated Red Blood Cells 0.0 0.0-0.19 % Chemistry Labs: Test 09/19/24 05:18 09/18/24 05:11 Range/Units Sodium Level 142 136-145 mmol/L Potassium Level 4.7 3.5-5.1 mmol/L Chloride Level 106 101-111 mmol/L Carbon Dioxide Level 31 21-32 mmol/L Blood Urea Nitrogen 26 H 7-18 mg/dL Creatinine 0.8 0.5-1.0 mg/dL Glomerular Filtration Rate Calc 89 >90 mL/min Random Glucose 214 H 70-105 mg/dL Lactic Acid Level 2.5 0.8-2.5 mmol/L Total Calcium 8.3 L 8.5-10.1 mg/dL Phosphorus Level 3.6 2.5-4.9 mg/dL Magnesium Level 1.90 1.80-2.40 mg/dL Total Bilirubin 0.4 0.2-1.0 mg/dL Aspartate Amino Transf (AST/SGOT) 13 10-37 U/L Alanine Aminotransferase (ALT/SGPT) 26 12-78 U/L Alkaline Phosphatase 67 50-136 U/L Total Protein 5.8 L 6.0-8.3 g/dL Albumin 2.5 L 3.5-5.0 g/dL Ammonia 11 11-32 umol/L DIAGNOSTICS / RADIOLOGY RESULTS: [ ] PLAN Hemodynamically stable for safe medical discharge from hospital Disposition as per primary ATTESTATION BY PHYSICIAN Clinical note was scribed by Vinay Diana, medical photographer. I can attest to the Clinical accuracy of the note IHSAN STONE MD I personally scribed for IHSAN STONE MD ([email or web address]) on 09/19/24 at 14:50. Electronically submitted by Vinay Diana ([email or web address]). IHSAN STONE MD Sep 19, 2024 14:50
--- NOTE | 2024-09-19 21:37 | DS ---
Discharge Summary Hospital Course Summary: This is a 54-year-old female with a known history of chronic obstructive pulmonary disease she arrived at the emergency department after being found lethargic and struggling to breathe with oxygen levels in the 70s she was initially placed on a non-rebreather mask which helped improve her oxygen saturation to 99 presents on arrival her vital signs showed a fever of 101.1 F a heart rate fluctuating between 107 and 115 beats per minute a respiratory rate of 34 breaths per minute and a blood pressure of 132/73 she was admitted for acute respiratory failure a COPD exacerbation acute bronchitis sepsis severe hypokalemia elevated BNP hyperglycemia and a urinary tract infection during her stay she was started on broad-spectrum IV antibiotics a chest CT ruled out pulmonary embolism but suggested pneumoniae the following day her respiratory distress worsened requiring 6 L of oxygen along with breathing treatments she was kept on ceftriaxone and doxycycline and Solu-Medrol was started and later tapered lab test showed positive blood and sputum cultures for Haemophilus i nfluenza and mycoplasma pneumoniae her lactic acid levels began trending down unfortunately she did not pass the 6 minute walk test and remained in the hospital for an additional day receiving fluids and IV antibiotics today her lactic acid levels are back to baseline and she appears more comfortable she is being discharged with oral antibiotics and respiratory treatment. Firer Helper(s): Pulmonology Infectious disease Procedure(s): PATIENT: ESTEBAN MELGAR MR#: [id number] : 1970 SEX: F AGE: 54 LOCATION: [facility] ORDER 2 STATUS: [facility] REPORT#: [id number] SERVICE 1 REASON: SOB ORDERING PHYSICIAN: NOREEN RODAS MD PROCEDURE: CXR1VW - CHEST 1VW CHEST 1VW HISTORY: Shortness of breath COMPARISON: None FINDINGS: A frontal projection of the chest was obtained. No acute pulmonary infiltrates is seen. The heart is borderline enlarged. Degenerative changes are seen. Prominent interstitial markings are seen. IMPRESSION: 1. No acute pulmonary infiltrate is seen. DICTATED BY: JAIME DOTSON MD DATE: 09/13/24845 ELECTRONICALLY SIGNED BY: JAIME DOTSON MD DATE: 09/13/24848 PATIENT: ESTEBAN MELGAR MR#: [id number] : 1970 SEX: F AGE: 54 LOCATION: [facility] ORDER 1443 STATUS: ADM IN REPORT#: [id number] SERVICE 1442 REASON: cough ORDERING PHYSICIAN: HUGO IDETRICH MD PROCEDURE: CHEST WO - CT CHEST W/O CONTRAST CT NONCONTRAST CHEST Comparison Study: none History: cough Technique: Helical CT of the chest without IV contrast at 5 mm collimation. Coronal and sagittal reformations also done. CT Dose Index (CTDI): 2.38 mGy Dose Length Product (DLP): 94.8 total mGy-cm Findings: The airway is intact. The trachea and major bronchi are unremarkable. Scattered diffuse bilateral infiltrates are seen consistent with bilateral pneumonia. No pulmonary infiltrates or mass lesions are seen. No pleural effusions are identified. There is no pneumothorax. There is no evidence of pneumomediastinum. The nonenhanced exam of the sharri and mediastinum is unremarkable. No evidence of hilar enlargement is seen. The aorta shows no aneurysmal dilatation or significant atheromatous calcification. No significant brachiocephalic vascular abnormalities are seen. The heart is unremarkable. It is not enlarged. No significant coronary arterial calcifications are seen. There is no pericardial effusion. The rib cage appears unremarkable. The soft tissues of the chest wall are unremarkable. The dorsal spine shows no significant abnormalities. IMPRESSION: Scattered diffuse bilateral infiltrates are seen consistent with bilateral pneumonia. This study was performed using dose reduction techniques to include automated exposure control and/or adjustment of the mA and/or kV according to patient size. DICTATED BY: LAUREN MOON MD DATE: 09/13/242127 ELECTRONICALLY SIGNED BY: LAUREN MOON MD DATE: 09/13/242131 PATIENT: ESTEBAN MELGAR MR#: [id number] : 1970 SEX: F AGE: 54 LOCATION: [facility] ORDER 2300 STATUS: ADM IN REPORT#: [id number] SERVICE 0600 REASON: HYPOXIA RESP FAILURE ORDERING PHYSICIAN: HOWARD ABRAHAM PROCEDURE: CXR1VW - CHEST 1VW CHEST 1VW HISTORY: Hypoxia COMPARISON: 09/13/2024 FINDINGS: A frontal projection of the chest was obtained. Mild bilateral pulmonary infiltrates are seen may be related to mild pulmonary vascular congestion with possible superimposed pneumonitis. The heart is normal in size. Degenerative changes are seen. No evidence of aortic calcification is seen. IMPRESSION: 1. Mild bilateral pulmonary infiltrates are seen may be related to mild pulmonary vascular congestion with possible superimposed pneumonitis. DICTATED BY: JAIME DOTSON MD DATE: 09/14/24924 ELECTRONICALLY SIGNED BY: JAIME DOTSON MD DATE: 09/14/24929 PATIENT: ESTEBAN MELGAR MR#: [id number] : 1970 SEX: F AGE: 54 LOCATION: [facility] ORDER 7 STATUS: ADM IN REPORT#: [id number] SERVICE 1 REASON: chf ORDERING PHYSICIAN: FARA SAINZ MD PROCEDURE: ECHO CMP - ECHO 2-D COMPLETE APPROVED REPORT EXAM: Two-dimensional and M-mode echocardiogram with Doppler and color Doppler. INDICATION ICD: Heart Failure 2D Dimensions RVDd 3.4 cm LVEF(%) 77.0 (>50%) LVED Vol(simp.) 143.0 mL IVSd 0.6 (0.7-1.1cm) FS(%) 46 % LVES Vol(simp.) 56.8 mL LVDd 4.4 (3.8-5.6cm) LA (2D) 3.8 (1.6-4.0cm) LVEF(%, simp.) 60 % PWd 0.7 (0.7-1.1cm) Ao Root(2D) 2.8 (2.0-3.7cm) LA ESV INDEX (4CH) 20.80 mL/m2 IVSs 1.1 cm LVOT diam 2.0 (1.8-2.4cm) LA ESV INDEX (2CH) 44.90 mL/m2 LVDs 2.4 (2.5-4.0cm) LA ESV INDEX (BP) 34.20 mL/m2 PWs 1.1 cm M-Mode Dimensions EPSS 1.5 cm LA (MM) 2.3 (1.6-4.0cm) Ao Root(MM) 3.0 (2.0-3.7cm) Aortic Valve AoV VTI 0.4 m Ao Mean GR 10.0 mmHg LVOT VTI 0.21 m ROCIO (VMAX) 1.6 cm2 ROCIO (VTI) 1.6 cm2 Mitral Valve MV E Vmax 108.7 cm/s DECEL Time 169 ms MV A Vmax 108.2 cm/s P 1/2 T 41 ms E/A ratio 1.0 MVA (PHT) 5.3 cm2 MR Max PG 57 mmHg TDI E/E' Medial 11.8 E/E' Lateral 11.1 Medial E' Peak V 9.20 cm/s Lateral E' Peak V 9.80 cm/s Tricuspid Valve TR Vmax 3.1 m/s TR Peak GR 38.3 mmHg Left Ventricle The left ventricle is mildly dilated. Septal bounce due to IVCD and bigeminal PVCs. There is normal left ventricular wall thickness. LVEF is 55-60%. The left ventricular diastolic function is normal. Right Ventricle The right ventricle is normal size. The right ventricular systolic function is normal. Atria The left atrium size is normal. The right atrium size is normal. Aortic Valve The aortic valve is normal in structure and function. No aortic regurgitation is present. There is no aortic valvular stenosis. Mitral Valve The mitral valve is normal in structure and function. There is no mitral valve regurgitation noted. There is no mitral valve stenosis. Tricuspid Valve The tricuspid valve is normal in structure and function. There is no tricuspid valve regurgitation noted. Pulmonic Valve The pulmonary valve is normal in structure and function. There is no pulmonic valvular regurgitation. Great Vessels The aortic root is normal in size. IVC is dilated and collapses >50% with inspiration. Pericardium No pericardial effusion. Conclusion The left ventricle is mildly dilated. There is normal left ventricular wall thickness. Septal bounce due to IVCD and bigeminal PVCs. LVEF is 55-60%. There is no mitral valve regurgitation noted. There is no tricuspid valve regurgitation noted. No pericardial effusion. DICTATED BY: VASILIY BELTRE MD DATE: 09/14/24 0934 ELECTRONICALLY SIGNED BY: VASILIY BELTRE MD DATE: 09/15/24 2331 PATIENT: ESTEBAN MELGAR MR#: [id number] : 1970 SEX: F AGE: 54 LOCATION: [facility] ORDER 5 STATUS: ADM IN REPORT#: [id number] SERVICE 09 REASON: SOB, ORDERING PHYSICIAN: GUNNAR GRIFFIN NP PROCEDURE: CXR1VW - CHEST 1VW CHEST 1VW REASON: SOB, COMPARISON: 09/14/2024 FINDINGS: Heart size is normal. There are mildly increased perihilar interstitial markings, nonspecific, this can be seen with viral pneumonia or interstitial edema. Overall appearance is unchanged given differences in technique. There are no pleural effusions. Mediastinum and bony thorax appear unremarkable. IMPRESSION: 1. Mildly increased perihilar interstitial markings, nonspecific, unchanged. DICTATED BY: AMADOU ACHARYA MD DATE: 09/15/24 1148 ELECTRONICALLY SIGNED BY: AMADOU ACHARYA MD DATE: 09/15/24 1152 Assessment/Plan: ASSESSMENT: [Acute hypoxic respiratory failure, POA Chronic obstructive pulmonary disease exacerbation, POA Urine culture E coli Sputum Haemophilus influenzae I Acute bronchitis, POA Sepsis, POA due to above Severe hypokalemia, POA Elevated BNP, POA Hyperglycemia, POA Urinary tract infection, POA ] Discharge Instructions: Follow up with PCP in 3-5 days Home Medications: Active Scripts Pantoprazole Sodium (Pantoprazole Sodium) 40 Mg Tablet.dr, 40 MG PO DAILY for 30 Days, #30 TAB 0 Refills Prov:ADITHYA JUSTICE MD 09/19/24 Azithromycin (Azithromycin) 500 Mg Tablet, 1 TAB PO DAILY for 5 Days, #5 TAB 0 Refills Prov:ADITHYA JUSTICE MD 09/19/24 Levofloxacin (Levofloxacin) 750 Mg Tablet, 1 TAB PO DAILY for 7 Days, #7 TAB 0 Refills Prov:ADITHYA JUSTICE MD 09/19/24 New Medications: Azithromycin (Azithromycin) 500 Mg Tablet 1 TAB PO DAILY for 5 Days, #5 TAB 0 Refills Levofloxacin (Levofloxacin) 750 Mg Tablet 1 TAB PO DAILY for 7 Days, #7 TAB 0 Refills Pantoprazole Sodium (Pantoprazole Sodium) 40 Mg Tablet. 40 MG PO DAILY for 30 Days, #30 TAB 0 Refills Time spent arranging discharge: 1-30 minutes ATTESTATION BY PHYSICIAN I have seen and examined the patient. I reviewed the documentation, medical decision making, and treatment plan as noted by the resident provider above. I agree with the findings and plan of care. Angelo Mobley MD, GERARDO MD Sep 19, 2024 21:37
== END 2024-09-19 15:55 | disposition home or self-care (01) | DRG 871 ==
LOC: EDH 04:30 → EDHIP 04:31 → UNDOADMIN 07:43 → 4AH 09-14 00:45 → EDHIP 09-14 00:45
PROVIDERS: ADMIT Internal Medicine; ATTEND Internal Medicine
DX: A41.9 Sepsis, unspecified organism (principal); G92.8 Other toxic encephalopathy; J96.01 Acute respiratory failure with hypoxia; J15.69 Pneumonia due to other Gram-negative bacteria; J15.7 Pneumonia due to Mycoplasma pneumoniae; J44.1 Chronic obstructive pulmonary disease with (acute) exacerbation; J44.0 Chronic obstructive pulmonary disease with (acute) lower respiratory infection; N39.0 Urinary tract infection, site not specified; E87.21 Acute metabolic acidosis; Z59.00 Homelessness unspecified; J20.9 Acute bronchitis, unspecified; E87.6 Hypokalemia; E83.51 Hypocalcemia; F14.10 Cocaine abuse, uncomplicated; B96.20 Unspecified Escherichia coli [E. coli] as the cause of diseases classified elsewhere; D50.9 Iron deficiency anemia, unspecified; R65.20 Severe sepsis without septic shock; I49.3 Ventricular premature depolarization; F10.10 Alcohol abuse, uncomplicated; F17.210 Nicotine dependence, cigarettes, uncomplicated; E66.9 Obesity, unspecified; B96.3 Hemophilus influenzae [H. influenzae] as the cause of diseases classified elsewhere; Z59.71 Insufficient health insurance coverage; Z68.29 Body mass index [BMI] 29.0-29.9, adult
CPT/HCPCS: 36415; 36600; 71045; 71250; 80048; 80053; 80061; 80076; 80305; 81001; 82140; 82435; 82803; 82947; 82948; 83036; 83540; 83550; 83605; 83735; 83880; 84100; 84132; 84145; 84295; 84439; 84443; 84481; 85018; 85025; 85027; 85378; 85610; 86701; 86738; 87040; 87071; 87086; 87186; 87205; 87390; 87449; 87635; 87804; 87880; 93005; 93306; 94640; 94664; 94760; 96365; 96375; 99285; G0378; J0692; J0696; J1650; J1940; J1956; J2919; J3411; J3480; J3490; J7030